=== PATIENT | male | born 1950 | race Caucasian/White ===

== ENCOUNTER → 2017-05-07 | Outpatient (CLI) | payer OTHER, MEDICARE ==
[~2017-05-07] MED LIST: ACIDOPHILUS LA1 EACH PO; ALEN70; ALEN70 PO; AMLO5; ANAS1 PO; ANASTROZOLE PO; ANASTROZOLE5 GM PO; ANDRODERM1 EAC1 TD; ASPI81CH PO; ASPI81EC; ASPI81EC PO; ATELVIA PO; ATEN25; ATOR10; ATOR20 PO; ATOR40TA; AXIRON30 MG/1.5 TOP; AZAT50 PO; Adult Low Dose81 MG PO; BETAINE HCL300 MG PO; BIEST/PROGESTERONE PO; BUPR150ER PO; Budeprion Sr150 MG; CALC.25 PO; CALCA500CH; CALCA500CH PO; CALCAVITD PO; CARV3.125 PO; CARV6.25 PO; CEPH500 PO; CHOL10002 PO; CILOSTAZOL PO; CLON.1 PO; CLOP75; CLOP75 PO; CULTURELLE1 EACH; Catapres0.1 MG PO; Cilostazol50 MG PO; Culturelle1 CAP PO; DHEA PO; EPOE20I; ESCI10; ESTRIOL MC; FE TINIC; FERREX 28 TABL1 EACH PO; FOL2.2T; FOLI1 PO; FURO40; FURO40 PO; Fludrocortison0.1 MG PO; GABA100; GABA100 PO; HYDACE10B PO; HYDACE5 PO; HYDMOR2 PO; HYDR1TAB94 PO; Humalog100 UNIT/1; Humalog100 UNIT/1 SC; Humalog100 UNIT/3 SC; INSULANPEN SC; INSULIN PUMP; LIOT25 PO; LIOT5 PO; LOSA50 PO; MAG-OXIDE200 MG PO; MAGOXI400; MAGOXI400 PO; METO25 PO; METO25ER PO; METO50 PO; MIRT15; MIRT15 PO; MIRT30 PO; MULVITA; MULVITA PO; MULVITB; MYCO250; MYCO250 PO; Micro-K10 MEQ; Micro-K10 MEQ PO; Multivitamin1 EAC1 PO; OMEP20ER; OMEP20ER PO; PANT40; PARI1 PO; PLETAL PO; PRED5; PRED5 PO; PREDNISONE 7.5 MG; PROGRAF PO; PROM25 PO; Percocet 5-3251 EACH PO; Plavix75 MG PO; RANI150; RXONDA4ODT MM; RXOXYACE PO; SODBIC650; TACR1; TACR1 PO; TAMS.4ER; TAMS.4ER PO; TESTOSTERONE CYPIONATE IM; Testostero100 MG/1 M IM; Zithromax250 MG PO; [UNRECOGNIZED DRUG - OTHER] PO; [UNRECOGNIZED DRUG - REMARK] PO
== END | disposition home or self-care (01) ==
LOC: LAB 08:24 → LAB SHORT 08:24
DX: D48.5 Neoplasm of uncertain behavior of skin (principal)
CPT/HCPCS: 88305

== ENCOUNTER → 2017-07-18 | Outpatient (CLI) | payer OTHER, MEDICARE | LOC: LAB SHORT 09:53 → PLD 09:53 | DX: D48.5 Neoplasm of uncertain behavior of skin (principal) | CPT/HCPCS: 88305 ==

== ENCOUNTER → 2017-08-28 | Outpatient (CLI) | payer OTHER, MEDICARE ==
[~2017-08-28] MED LIST changes: -ACIDOPHILUS LA1 EACH PO; -ANAS1 PO; -ANASTROZOLE PO; -ANASTROZOLE5 GM PO; -AXIRON30 MG/1.5 TOP; -Adult Low Dose81 MG PO; -BETAINE HCL300 MG PO; -CLON.1 PO; -CULTURELLE1 EACH; -Catapres0.1 MG PO; -Cilostazol50 MG PO; -Culturelle1 CAP PO; -FURO40 PO; -HYDR1TAB94 PO; -Humalog100 UNIT/1; -Humalog100 UNIT/1 SC; -Humalog100 UNIT/3 SC; -INSULANPEN SC; -LIOT25 PO; -LOSA50 PO; -MAG-OXIDE200 MG PO; -Micro-K10 MEQ; -Micro-K10 MEQ PO; -PLETAL PO; -Plavix75 MG PO; -TESTOSTERONE CYPIONATE IM; -Testostero100 MG/1 M IM; -Zithromax250 MG PO; -[UNRECOGNIZED DRUG - REMARK] PO
== END ==
LOC: LAB SHORT 11:10 → LAB 11:10
DX: R19.7 Diarrhea, unspecified (principal)
CPT/HCPCS: 87493

== ENCOUNTER 2017-10-16 06:02 | Day surgery (SDC) | payer OTHER, MEDICARE ==
[~2017-10-16] VITALS: Ht 185.4 cm; Wt 87.0 kg
[~2017-10-16 06:02] MED LIST changes: +ANASTROZOLE5 GM PO; +BETAINE HCL300 MG PO; +FURO40 PO; +HYDR1TAB94 PO; +LIOT25 PO; +LOSA50 PO; +Micro-K10 MEQ; +Testostero100 MG/1 M IM
[2017-10-17 03:51] LABS: Anion Gap 7 mmol/L (6-16); Blood Urea Nitrogen 19 mg/dL (8-24); Bun/Creatinine Ratio 19.8 (12.0-20.0); CO2, Blood 25 mmol/L (21-32); Calcium, Blood 8.3 mg/dL (8.5-10.1); Chloride, Blood 112 mmol/L (98-108); Creatinine, Blood 0.96 mg/dL (0.60-1.20); Glomerular Filtration Rate >60 (60-); Glucose, Blood 91 mg/dL (70-99); Potassium, Blood 4.1 mmol/L (3.5-5.5); Sodium, Blood 144 mmol/L (136-145)
== END 2017-10-17 10:05 | disposition home or self-care (01) ==
LOC: MHTC 06:02 → ICUW 15:56 → MHTC 10-17 10:05
PROVIDERS: Internal Medicine Interventional Cardiology
PROC: 047Q3Z1 Dilation of Left Anterior Tibial Artery using Drug-Coated Balloon, Percutaneous Approach (ICD-10-PCS; principal; 2017-10-17)
PROC: 04CQ3ZZ Extirpation of Matter from Left Anterior Tibial Artery, Percutaneous Approach (ICD-10-PCS; principal; 2017-10-17)
DX: E10.51 Type 1 diabetes mellitus with diabetic peripheral angiopathy without gangrene (principal); I70.245 Atherosclerosis of native arteries of left leg with ulceration of other part of foot; L97.529 Non-pressure chronic ulcer of other part of left foot with unspecified severity; I70.92 Chronic total occlusion of artery of the extremities; Z79.02 Long term (current) use of antithrombotics/antiplatelets; Z79.4 Long term (current) use of insulin; Z87.891 Personal history of nicotine dependence
CPT/HCPCS: 36415; 37229; 75710; 75774; 76937; 80048; 85347; 85730; 99152; 99153; C1724; C1725; C1769; C1887; C1894; J0360; J1644; J2250; J3010; J7030; J7507; Q9967

== ENCOUNTER 2017-11-13 20:54 | Emergency (ER) | payer MEDICARE, OTHER ==
[~2017-11-13] VITALS: Ht 185.4 cm; Wt 85.3 kg
[2017-11-13 22:29] LABS: BASOPHILS ABSOLUTE AUTO 0.01 K/mm3 (0.00-0.23); BASOPHILS PERCENT AUTO 0 % (0-2); EOSINOPHILS ABSOLUTE AUTO 0.55 K/mm3 (0.00-0.68); EOSINOPHILS PERCENT AUTO 13 % (0-6); Hematocrit 38.8 % (37.0-53.0); Hemoglobin 13.1 g/dL (13.5-17.5); IMMATURE GRAN ABSOLUTE AUTO 0.01 K/mm3 (0.00-0.10); IMMATURE GRAN PERCENT AUTO 0 % (0-1); LYMPHOCYTES ABSOLUTE AUTO 1.31 K/mm3 (0.84-5.20); LYMPHOCYTES PERCENT AUTO 30 % (21-46); MONOCYTES ABSOLUTE AUTO 0.49 K/mm3 (0.16-1.47); MONOCYTES PERCENT AUTO 11 % (4-13); Mean Corpuscular HGB 35.3 pg (26.0-34.0); Mean Corpuscular HGB Conc 33.8 g/dL (31.5-36.5); Mean Corpuscular Volume 105 fL (80-100); NEUTROPHILS ABSOLUTE AUTO 1.99 K/mm3 (1.96-9.15); NEUTROPHILS PERCENT AUTO 46 % (41-73); Platelet Count 76 K/mm3 (150-400); RDW Coefficient Variation 13.8 % (11.7-14.2); RDW Standard Deviation 54.4 fL (35.1-46.3); Red Blood Cell Count 3.71 M/mm3 (4.30-5.90); White Blood Cell Count 4.36 K/mm3 (4.00-11.30)
[2017-11-13 22:35] LABS: Albumin, Blood 3.1 g/dL (3.4-5.0); Albumin/Globulin Ratio 0.9 (0.8-1.8); Bilirubin, Total 0.5 mg/dL (0.1-1.0); Bun/Creatinine Ratio 14.3 (12.0-20.0); Calcium, Blood 8.1 mg/dL (8.5-10.1); Creatinine, Blood 1.54 mg/dL (0.60-1.20); Globulin, Blood 3.5 g/dL (2.2-4.0); Potassium, Blood 4.2 mmol/L (3.5-5.5); Total Protein, Blood 6.6 g/dL (6.4-8.2); Troponin I 0.016 ng/mL (0.000-0.040)
[2017-11-13] MEDS ORDERED: Zithromax250 MG PO (23:22)
== END 2017-11-13 23:40 | disposition home or self-care (01) ==
LOC: ER 20:54
PROVIDERS: Emergency Medicine
DX: J18.9 Pneumonia, unspecified organism (principal); J98.8 Other specified respiratory disorders; Z88.5 Allergy status to narcotic agent; Z88.8 Allergy status to other drugs, medicaments and biological substances; Z79.899 Other long term (current) drug therapy; Z79.52 Long term (current) use of systemic steroids; Z79.82 Long term (current) use of aspirin; Z79.891 Long term (current) use of opiate analgesic; Z87.891 Personal history of nicotine dependence
CPT/HCPCS: 36415; 71046; 80053; 83880; 84484; 85025; 93005; 93010; 94640; 99284-25

== ENCOUNTER → 2018-01-27 | Outpatient (CLI) | payer MEDICARE ==
[~2018-01-27] MED LIST changes: +AXIRON30 MG/1.5 TOP; +CULTURELLE1 EACH; +Micro-K10 MEQ PO; +PLETAL PO; +Plavix75 MG PO; +Zithromax250 MG PO
== END | disposition home or self-care (01) ==
LOC: PLD 14:21 → LAB SHORT 14:21
DX: D48.5 Neoplasm of uncertain behavior of skin (principal)
CPT/HCPCS: 88305

== ENCOUNTER 2018-01-29 20:47 | Observation (INO) | payer MEDICARE ==
[~2018-01-29] VITALS: Ht 185.4 cm; Wt 85.3 kg
[~2018-01-29 20:47] MED LIST changes: -AXIRON30 MG/1.5 TOP; -CULTURELLE1 EACH; -Micro-K10 MEQ PO; -PLETAL PO; -Plavix75 MG PO
[2018-01-29 21:31] LABS: BASOPHILS ABSOLUTE AUTO 0.03 K/mm3 (0.00-0.23); BASOPHILS PERCENT AUTO 0 % (0-2); EOSINOPHILS ABSOLUTE AUTO 0.34 K/mm3 (0.00-0.68); EOSINOPHILS PERCENT AUTO 5 % (0-6); Hemoglobin 13.7 g/dL (13.5-17.5); IMMATURE GRAN ABSOLUTE AUTO 0.03 K/mm3 (0.00-0.10); IMMATURE GRAN PERCENT AUTO 0 % (0-1); LYMPHOCYTES ABSOLUTE AUTO 1.58 K/mm3 (0.84-5.20); LYMPHOCYTES PERCENT AUTO 23 % (21-46); MONOCYTES ABSOLUTE AUTO 0.63 K/mm3 (0.16-1.47); MONOCYTES PERCENT AUTO 9 % (4-13); Mean Corpuscular HGB 34.5 pg (26.0-34.0); Mean Corpuscular HGB Conc 32.6 g/dL (31.5-36.5); Mean Corpuscular Volume 106 fL (80-100); Mean Platelet Volume 10.4 fL (9.1-12.4); NEUTROPHILS PERCENT AUTO 62 % (41-73); Platelet Count 132 K/mm3 (150-400); RDW Coefficient Variation 15.4 % (11.7-14.2); RDW Standard Deviation 60.3 fL (35.1-46.3); Red Blood Cell Count 3.97 M/mm3 (4.30-5.90); White Blood Cell Count 6.81 K/mm3 (4.00-11.30)
[2018-01-29] MEDS ORDERED: DHEA PO (21:42)
[2018-01-29] MEDS ORDERED: FURO40 PO (21:42)
[2018-01-29] MEDS ORDERED: Fludrocortison0.1 MG PO (21:42)
[2018-01-29] MEDS ORDERED: TAMS.4ER PO (21:42)
[2018-01-29] MEDS ORDERED: AZAT50 PO (21:43)
[2018-01-29] MEDS ORDERED: MAGOXI400 PO (21:43)
[2018-01-29] MEDS ORDERED: ATOR20 PO (21:43)
[2018-01-29] MEDS ORDERED: LIOT25 PO (21:43)
[2018-01-29] MEDS ORDERED: LOSA50 PO (21:43)
[2018-01-29 21:44] LABS: Albumin, Blood 3.2 g/dL (3.4-5.0); Albumin/Globulin Ratio 0.9 (0.8-1.8); Bilirubin, Total 0.8 mg/dL (0.1-1.0); Bun/Creatinine Ratio 13.9 (12.0-20.0); Calcium, Blood 8.6 mg/dL (8.5-10.1); Creatinine, Blood 2.01 mg/dL (0.60-1.20); Globulin, Blood 3.7 g/dL (2.2-4.0); Potassium, Blood 4.2 mmol/L (3.5-5.5); Total Protein, Blood 6.9 g/dL (6.4-8.2)
[2018-01-29] MEDS ORDERED: Multivitamin1 EAC1 PO (21:45)
[2018-01-29] MEDS ORDERED: GABA100 PO (21:45)
[2018-01-29] MEDS ORDERED: MIRT30 PO (21:45)
[2018-01-29] MEDS ORDERED: Plavix75 MG PO (21:46)
[2018-01-29] MEDS ORDERED: PRED5 PO (21:46)
[2018-01-29] MEDS ORDERED: PLETAL PO (21:46)
[2018-01-29] MEDS ORDERED: Micro-K10 MEQ PO (21:46)
[2018-01-29] MEDS ORDERED: TACR1 PO ×2 (21:47→21:49)
[2018-01-29] MEDS ORDERED: AXIRON30 MG/1.5 TOP (21:48)
[2018-01-29] MEDS ORDERED: BETAINE HCL300 MG PO (21:49)
[2018-01-29] MEDS ORDERED: BUPR150ER PO (21:49)
[2018-01-29] MEDS ORDERED: CHOL10002 PO (21:49)
[2018-01-29] MEDS ORDERED: METO50 PO (21:51)
[2018-01-30 00:48] LABS: Source, Urine Clean Catch
[2018-01-30 00:50] LABS: Blood, Urine 2+ (Neg); Glucose Qualitative, Urine Neg (Neg); Ketones, Urine Neg (Neg); Leukocyte Esterase, Urine Neg (Neg); Nitrite, Urine Neg (Neg); Protein, Urine 2+ (Neg); Specific Gravity, Urine 1.025 (1.003-1.022); Urobilinogen, Urine NORM (Normal)
[2018-01-30 01:00] LABS: Appearance, Urine Hazy (Clear); Bacteria Rare /hpf; Bilirubin, Urine 1+ (Neg); Color, Urine Amber (P-Yellow); Red Blood Cells, Urine Not Seen /hpf (0-2); Squamous Epithelial Cells Few /hpf (Few); White Blood Cells, Urine Not Seen /hpf (0-5)
[2018-01-30 01:01] LABS: Amorphous Mod (0-Heavy); Hyaline Casts 50-100 /lpf (0-2)
[2018-01-30 05:24] LABS: Albumin, Blood 2.9 g/dL (3.4-5.0); Albumin/Globulin Ratio 0.9 (0.8-1.8); Bilirubin, Total 0.8 mg/dL (0.1-1.0); Bun/Creatinine Ratio 16.7 (12.0-20.0); Calcium, Blood 7.8 mg/dL (8.5-10.1); Creatinine, Blood 1.62 mg/dL (0.60-1.20); Globulin, Blood 3.2 g/dL (2.2-4.0); Potassium, Blood 4.1 mmol/L (3.5-5.5); Total Protein, Blood 6.1 g/dL (6.4-8.2)
[2018-01-30 20:17] LABS: Adenovirus F 40/41 Not Detected (NOT DETECT); Astrovirus Not Detected (NOT DETECT); Campylobacter Sp Not Detected (NOT DETECT); Cryptosporidium Not Detected (NOT DETECT); Cyclospora Cayetanensis Not Detected (NOT DETECT); E. Coli O157 Not Detected (NOT DETECT); Entamoeba Histolytica Not Detected (NOT DETECT); Enteroaggregative E. coli-EAEC Not Detected (NOT DETECT); Enteropathogenic E. coli-EPEC Not Detected (NOT DETECT); Enterotoxigenic E. coli-ETEC Not Detected (NOT DETECT); Giardia Lamblia Not Detected (NOT DETECT); Norovirus GI/GII Not Detected (NOT DETECT); Plesiomonas Shigelloides Not Detected (NOT DETECT); Rotavirus A Not Detected (NOT DETECT); Salmonella Sp Not Detected (NOT DETECT); Shiga Toxin-prod E. coli-STEC Not Detected (NOT DETECT); Shigella/Enteroin E. coli-EIEC Not Detected (NOT DETECT); Vibrio Cholerae Not Detected (NOT DETECT); Vibrio Sp Not Detected (NOT DETECT); Yersinia Enterocolitica Not Detected (NOT DETECT)
[2018-01-31 00:35] LABS: Sapovirus Detected (NOT DETECT)
[2018-01-31 06:19] LABS: Calcium, Blood 7.9 mg/dL (8.5-10.1); Creatinine, Blood 1.33 mg/dL (0.60-1.20); Potassium, Blood 3.9 mmol/L (3.5-5.5)
[2018-01-31] MEDS ORDERED: CULTURELLE1 EACH (08:58)
== END 2018-01-31 10:27 | disposition home or self-care (01) ==
LOC: ER 20:47 → MEDS 20:48 → ENPENDDIS 01-31 09:29 → MEDS 01-31 10:27
PROVIDERS: Internal Medicine; Physician Assistant
DX: E11.65 Type 2 diabetes mellitus with hyperglycemia (principal); R19.7 Diarrhea, unspecified; I12.9 Hypertensive chronic kidney disease with stage 1 through stage 4 chronic kidney disease, or unspecified chronic kidney disease; E11.22 Type 2 diabetes mellitus with diabetic chronic kidney disease; N18.2 Chronic kidney disease, stage 2 (mild); E11.51 Type 2 diabetes mellitus with diabetic peripheral angiopathy without gangrene; N17.9 Acute kidney failure, unspecified; E11.42 Type 2 diabetes mellitus with diabetic polyneuropathy; Z94.83 Pancreas transplant status; Z94.0 Kidney transplant status; Z79.899 Other long term (current) drug therapy; Z79.82 Long term (current) use of aspirin; Z88.5 Allergy status to narcotic agent; Z88.6 Allergy status to analgesic agent; Z79.02 Long term (current) use of antithrombotics/antiplatelets; Z87.891 Personal history of nicotine dependence; Z86.73 Personal history of transient ischemic attack (TIA), and cerebral infarction without residual deficits
CPT/HCPCS: 36415; 80048; 80053; 81001; 82150; 82947; 83690; 84484; 85025; 87507; 90686; 93005; 93010; 96360; 96361; 96372; 96374; 99285-25; G0008; G0378; J0360; J1650; J7030; J7500; J7507

== ENCOUNTER → 2018-02-27 | Outpatient (CLI) | payer MEDICARE ==
[~2018-02-27] MED LIST changes: +ANAS1 PO; +AXIRON30 MG/1.5 TOP; +CULTURELLE1 EACH; +Catapres0.1 MG PO; +Cilostazol50 MG PO; +Culturelle1 CAP PO; +Humalog100 UNIT/1; +Humalog100 UNIT/1 SC; +Humalog100 UNIT/3 SC; +INSULANPEN SC; +Micro-K10 MEQ PO; +PLETAL PO; +Plavix75 MG PO
== END | disposition home or self-care (01) ==
LOC: PLD 13:22 → LAB SHORT 13:22
DX: D48.5 Neoplasm of uncertain behavior of skin (principal); A49.9 Bacterial infection, unspecified
CPT/HCPCS: 87070; 87077; 87147; 87186; 87205

== ENCOUNTER → 2018-05-15 | Outpatient (CLI) | payer MEDICARE ==
[~2018-05-15] MED LIST changes: +ACIDOPHILUS LA1 EACH PO; +ANASTROZOLE PO; +Adult Low Dose81 MG PO; +CLON.1 PO; +MAG-OXIDE200 MG PO; +TESTOSTERONE CYPIONATE IM; +[UNRECOGNIZED DRUG - REMARK] PO
== END | disposition home or self-care (01) ==
LOC: PLD 14:33 → LAB SHORT 14:33
DX: C44.622 Squamous cell carcinoma of skin of right upper limb, including shoulder (principal)
CPT/HCPCS: 88305

== ENCOUNTER → 2018-06-18 | Outpatient (CLI) | payer MEDICARE | END | disposition home or self-care (01) | LOC: LAB SHORT 10:04 → PLD 10:04 | DX: C44.629 Squamous cell carcinoma of skin of left upper limb, including shoulder (principal) | CPT/HCPCS: 88305 ==

== ENCOUNTER 2018-08-26 09:44 | Day surgery (SDC) | payer MEDICARE ==
[~2018-08-26] VITALS: Ht 185.4 cm; Wt 90.0 kg
[~2018-08-26 09:44] MED LIST changes: +Norco 5-325 Ta1 EACH PO; +XARELTO15 MG PO
[2018-08-26] MEDS ORDERED: VITAMIN D32000 UNI1 PO (10:35)
[2018-08-26] MEDS ORDERED: CALC.25 PO (10:36)
[2018-08-26] MEDS ORDERED: TESTOSTERONE TOP (10:50)
[2018-08-26] MEDS ORDERED: [UNRECOGNIZED DRUG - OTHER] TOP (10:50)
--- NOTE | 2018-08-26 14:20 | NUR ---
PT HAS HAD UNCOMPLICATED POST PROCEDURE COURSE TO THIS POINT. ACCESS SITES IN BILATERAL GROINS STABLE. NO BLEEDING OR SWELLING NOTED. CMS TO BOTH LEGS INTACT. LEGS PWD. PT DENIES PAIN AT THIS TIME. AT BEDSIDE.
--- NOTE | 2018-08-26 15:02 | NUR ---
PT C/O "DULL ACHE" IN BACK OF LEFT KNEE AT THIS TIME. DENIES ANY OTHER PAIN OR DISCOMFORT. BILAT GROIN SITES REMAIN STABLE. NO BLEEDING OR SWELLING NOTED. LEGS PWD.
--- NOTE | 2018-08-26 16:56 | NUR ---
SUMMARY: STEPHENIE Pope RN CARED FOR PATIENT OVER LAST 2 HOURS. THIS RN DISCHARGED PATIENT HOME AT THIS TIME. NO C/O PAIN OR DISCOMFORT. AMBULATED IN ROOM AND TO BATHROOM, MILDLY UNSTEADY ON FEET DUE TO CALF DISCOMFORT. IS ABLE TO SAFELY AMBULATED WITH SBA. NO BLEEDING OR SWELLING NOTED. DISCHARGE INSTRUCTIONS REVIEWED WITH PATIENT BY DOMINIC RN. PT AND VERBALIZE UNDERSTANDING OF ALL INSTRUCTIONS TO THIS RN. IV D/C TIP INTACT. PT DC HOME VIA WHEELCHAIR WITH TO DRIVE HIM.
== END 2018-08-26 16:40 | disposition home or self-care (01) ==
LOC: MHTC 09:44 → SURS 09:45 → MHTC 10:00
DX: I73.9 Peripheral vascular disease, unspecified (principal); Z88.5 Allergy status to narcotic agent; Z88.6 Allergy status to analgesic agent; Z79.899 Other long term (current) drug therapy
CPT/HCPCS: 82947; 99152; 99153; C1725; C1760; C1769; C1887; C1894; C2623; J1644; J2250; J3010; J7030; J7040; Q9967

== ENCOUNTER → 2018-09-24 | Outpatient (CLI) | payer MEDICARE ==
[~2018-09-24] MED LIST changes: +TESTOSTERONE TOP; +VITAMIN D32000 UNI1 PO; +[UNRECOGNIZED DRUG - OTHER] TOP
== END | disposition home or self-care (01) ==
LOC: LAB SHORT 15:46 → PLD 15:46
DX: D48.5 Neoplasm of uncertain behavior of skin (principal)
CPT/HCPCS: 88305

== ENCOUNTER 2019-11-11 08:13 | Day surgery (SDC) | payer MEDICARE ==
[~2019-11-11] VITALS: Ht 185.4 cm; Wt 82.1 kg
[~2019-11-11 08:13] MED LIST changes: +ACIDOPHILUS1 EAC3 PO; +Budeprion Xl300 MG PO; +CENTRUM SILVER1 EAC2 PO; +CULTURELLE PO; +Culturelle1 CAP; +Depo-Testos200 MG/ML IM; +HUMALOG100 UNIT/1 SC; +LOSA25 PO; +Lipitor20 MG PO; +MAGNESIUM OXID500 MG PO; +MIRTAZAPINE PO; +SIRO1 PO
--- NOTE | 2019-11-11 11:51 | NUR ---
Ambulatory in Day Surgery. Surgical site prepped with 2% Chlorhexidine cloth wipe. History, Chart, Medications and Allergies reviewed before start of procedure. History, Chart, Medications and Allergies reviewed before start of procedure. Lungs clear T/O to Auscultation. Patient confirms NPO status and agrees with scheduled surgery. Pre-Op teaching done. Pt verbalizes understanding. Patient States Post-Procedure ride home has been arranged. Patient reports completing Chlorhexadine shower X2 prior to admission to hospital.
--- NOTE | 2019-11-11 15:01 | NUR ---
Patient up to Ambulate independently. Gait steady. Dressing to procedure site clean, dry, intact with no visible drainage, swelling, erythema or bruising noted. Discharge instructions reviewed with patient. Patient verbalizes understanding. Copy given to patient to take home. Patient States Post-Procedure ride home has been arranged. Discharged via wheelchair to private car for ride home. ALL BELONINGS PROVIDED TO PATIENT. CBG ON INSULIN PUMP 178. PT DAVID SNACK AND FLUID.
--- NOTE | 2019-11-11 15:08 | NUR ---
Patient up to Ambulate independently. Gait steady. Discharge instructions reviewed with patient. Patient verbalizes understanding. Copy given to patient to take home. Dressing to procedure site clean, dry, intact with no visible drainage, swelling, erythema or bruising noted. Patient States Post-Procedure ride home has been arranged. Discharged via wheelchair to private car for ride home.ALL BELONINGS RETURNED TO PATIENT
== END 2019-11-11 22:52 | disposition home or self-care (01) ==
LOC: ORSCMMR 08:13 → ORD 09:45 → ORSCMMR 09:45
PROVIDERS: Surgery
PROC: 0JBF0ZX Excision of Left Upper Arm Subcutaneous Tissue and Fascia, Open Approach, Diagnostic (ICD-10-PCS; principal; 2019-11-11 12:15)
DX: C79.89 Secondary malignant neoplasm of other specified sites (principal); R59.0 Localized enlarged lymph nodes; Z95.0 Presence of cardiac pacemaker; N18.9 Chronic kidney disease, unspecified; E11.9 Type 2 diabetes mellitus without complications; E03.9 Hypothyroidism, unspecified; Z86.73 Personal history of transient ischemic attack (TIA), and cerebral infarction without residual deficits; Z79.899 Other long term (current) drug therapy
CPT/HCPCS: 82947; 84132; 88307; 88342; J0690; J1720; J2250; J2370; J2704; J3010; J7030; J7120

== ENCOUNTER → 2020-07-05 | Outpatient (CLI) | payer MEDICARE ==
[~2020-07-05] MED LIST changes: +PROGRAF0.5 M1 PO; +THERA-D2000 UNIT PO
== END | disposition home or self-care (01) ==
LOC: LAB SHORT 09:09 → LAB 09:09
DX: D48.5 Neoplasm of uncertain behavior of skin (principal)
CPT/HCPCS: 88305

== ENCOUNTER 2020-09-08 11:26 | Day surgery (SDC) | payer MEDICARE ==
[~2020-09-08] VITALS: Ht 185.4 cm; Wt 82.0 kg
[2020-09-08] MEDS ORDERED: TACR1 PO (12:08)
== END 2020-09-08 13:48 | disposition home or self-care (01) ==
LOC: ORSCSDS 11:26
PROVIDERS: Surgery
PROC: 0DBP8ZX Excision of Rectum, Via Natural or Artificial Opening Endoscopic, Diagnostic (ICD-10-PCS; principal; 2020-09-08 12:45)
DX: Z12.11 Encounter for screening for malignant neoplasm of colon (principal); Z86.010 Personal history of colon polyps; K62.1 Rectal polyp; K64.8 Other hemorrhoids; I10 Essential (primary) hypertension; Z95.0 Presence of cardiac pacemaker; Z86.73 Personal history of transient ischemic attack (TIA), and cerebral infarction without residual deficits; Z96.41 Presence of insulin pump (external) (internal); F32.9 Major depressive disorder, single episode, unspecified; E10.8 Type 1 diabetes mellitus with unspecified complications; Z87.891 Personal history of nicotine dependence; Z79.82 Long term (current) use of aspirin; Z79.4 Long term (current) use of insulin; Z79.01 Long term (current) use of anticoagulants; Z79.899 Other long term (current) drug therapy
CPT/HCPCS: 82947; 88305; J2704; J7120

== ENCOUNTER 2021-03-21 08:22 | Day surgery (SDC) | payer MEDICARE ==
[~2021-03-21] VITALS: Ht 185.4 cm; Wt 85.0 kg
--- NOTE | 2021-03-21 14:10 | NUR ---
PT TO RECOVERY ROOM POST PROCEDURE, L GROIN WITH POSITIVE SWELLING, MANUAL PRESSURE APPLIED.
--- NOTE | 2021-03-21 14:35 | NUR ---
PT'S L GROIN STABLE POST PROCEDURE. PT DROWSY, BUT CONVERSING APPROPRIATELY; REPORTS MIN DISCOMFORT L GROIN /, DENIES NEED FOR MEDICATION. MONITOR SR 70'S, B/P 127/58, AFEBRILE, SPO2 98% RA. L GROIN NO SWELLING/SOFT, AMADO AND TEGADERM DRSG INTACT; PULSES 2+ X 2. R GROIN NO SWELLING/HEMATOMA, AMADO AND TEGADERM DRSG INTACT; PULSES 1+ X 2. L PEDAL ACCESS SITE NO SWELLNG/HEMATOMA, AMADO AND TEGADERM DRSG INTACT. PT'S AT BEDSIDE. DR REYNA INTO DISCUSS PROCEDURE RESULTS WITH PT AND , NOTIFIED OF L GROIN SWELLING POST PROCEDURE.
--- NOTE | 2021-03-21 16:20 | NUR ---
PT HOB ELEVATED, SITES UNCHANGED. PT EATING LUNCH WITHOUT ISSUE.
--- NOTE | 2021-03-21 17:20 | NUR ---
PT AMB TO BATHRROM, GAIT STEADY; SITES UNCHANGED WITH ACTIVITY. PT DRESSED SELF WITHOUT ISSUE, SITES UNCHANGED-IV REMOVED, CANNULA INTACT.
--- NOTE | 2021-03-21 17:28 | NUR ---
PT AND RECEIVED DISCHARGE INSTRUCTIONS, MED LIST AND AFTER CARE INSTRUCTIONS; VERBALIZED GOOD UNDERSTANDING. PT LEFT FACILITY VIA W/C, CONDITION STABLE.
[2021-03-22] MEDS ORDERED: HYDACE10B PO (11:57)
== END 2021-03-21 17:28 | disposition home or self-care (01) ==
LOC: MHTC 08:22
DX: I70.223 Atherosclerosis of native arteries of extremities with rest pain, bilateral legs (principal); Z88.5 Allergy status to narcotic agent
CPT/HCPCS: 76937; 85347; 99152; 99153; C1725; C1760; C1769; C1874; C1887; C1894; C2623; J0360; J1644; J2250; J3010; J7030; J7042; Q9967

== ENCOUNTER 2021-03-25 10:38 | Emergency (ER) | payer MEDICARE ==
[~2021-03-25] VITALS: Ht 185.4 cm; Wt 83.9 kg
[2021-03-25 11:11] LABS: BASOPHILS ABSOLUTE AUTO 0.02 K/mm3 (0.00-0.23); BASOPHILS PERCENT AUTO 0 % (0-2); EOSINOPHILS ABSOLUTE AUTO 0.09 K/mm3 (0.00-0.68); EOSINOPHILS PERCENT AUTO 1 % (0-6); Hematocrit 28.9 % (37.0-53.0); Hemoglobin 9.7 g/dL (13.5-17.5); IMMATURE GRAN ABSOLUTE AUTO 0.04 K/mm3 (0.00-0.10); IMMATURE GRAN PERCENT AUTO 0 % (0-1); LYMPHOCYTES PERCENT AUTO 6 % (21-46); MONOCYTES ABSOLUTE AUTO 0.74 K/mm3 (0.16-1.47); MONOCYTES PERCENT AUTO 7 % (4-13); Mean Corpuscular HGB 33.6 pg (26.0-34.0); Mean Corpuscular HGB Conc 33.6 g/dL (31.5-36.5); Mean Corpuscular Volume 100 fL (80-100); Mean Platelet Volume 12.1 fL (9.1-12.4); NEUTROPHILS ABSOLUTE AUTO 9.01 K/mm3 (1.96-9.15); NEUTROPHILS PERCENT AUTO 86 % (41-73); Platelet Count 177 K/mm3 (150-400); RDW Coefficient Variation 15.5 % (11.7-14.2); RDW Standard Deviation 56.4 fL (35.1-46.3); Red Blood Cell Count 2.89 M/mm3 (4.30-5.90)
[2021-03-25 11:34] LABS: Albumin, Blood 2.3 g/dL (3.4-5.0); Albumin/Globulin Ratio 0.6 (0.8-1.8); Bilirubin, Total 0.6 mg/dL (0.1-1.0); Calcium, Blood 8.6 mg/dL (8.5-10.1); Creatinine, Blood 3.06 mg/dL (0.60-1.20); Globulin, Blood 3.6 g/dL (2.2-4.0); Potassium, Blood 4.7 mmol/L (3.5-5.5); Total Protein, Blood 5.9 g/dL (6.4-8.2)
[2021-03-25] MEDS ORDERED: Percocet 5-3251 EACH PO (14:22)
== END 2021-03-25 14:47 | disposition home or self-care (01) ==
LOC: ER 10:38
PROVIDERS: Physician Assistant
DX: I97.638 Postprocedural hematoma of a circulatory system organ or structure following other circulatory system procedure (principal); E78.5 Hyperlipidemia, unspecified; D64.9 Anemia, unspecified; I10 Essential (primary) hypertension; K21.9 Gastro-esophageal reflux disease without esophagitis; Z87.891 Personal history of nicotine dependence; Z79.899 Other long term (current) drug therapy; Z79.82 Long term (current) use of aspirin; Z79.4 Long term (current) use of insulin; Z79.52 Long term (current) use of systemic steroids
CPT/HCPCS: 36415; 80053; 85025; 93926; 96374; 96375; 99284-25; J2270; J2405

== ENCOUNTER → 2021-06-18 | Outpatient (CLI) | payer MEDICARE ==
[2021-06-19 12:15] LABS: Creatinine Urine 65.9 mg/dL (27.00-270.00); Protein, Urine Quantitative 201.7 mg/dL (0.0-11.9)
== END | disposition home or self-care (01) ==
LOC: LAB SHORT 10:07
PROVIDERS: Internal Medicine Nephrology
DX: N18.30 Chronic kidney disease, stage 3 unspecified (principal); D63.1 Anemia in chronic kidney disease; N25.81 Secondary hyperparathyroidism of renal origin; E55.9 Vitamin D deficiency, unspecified; E78.00 Pure hypercholesterolemia, unspecified; R76.9 Abnormal immunological finding in serum, unspecified; R94.5 Abnormal results of liver function studies; R94.6 Abnormal results of thyroid function studies
CPT/HCPCS: 81050; 82043; 82570; 84156

== ENCOUNTER 2021-07-26 00:25 | Day surgery (SDC) | payer MEDICARE ==
--- NOTE | 2021-07-26 15:39 | NUR ---
PT EDUCATED REGARDING OUR UNIT
== END 2021-07-26 17:00 | disposition home or self-care (01) ==
LOC: ATC 00:25
DX: E86.9 Volume depletion, unspecified (principal); I12.9 Hypertensive chronic kidney disease with stage 1 through stage 4 chronic kidney disease, or unspecified chronic kidney disease; E11.22 Type 2 diabetes mellitus with diabetic chronic kidney disease; N18.4 Chronic kidney disease, stage 4 (severe); D63.1 Anemia in chronic kidney disease; N25.81 Secondary hyperparathyroidism of renal origin; Z79.01 Long term (current) use of anticoagulants; Z79.82 Long term (current) use of aspirin
CPT/HCPCS: J7030

== ENCOUNTER 2021-08-08 09:45 | Day surgery (SDC) | payer MEDICARE | END 2021-08-08 23:00 | disposition home or self-care (01) | LOC: ATC 09:45 | DX: E86.9 Volume depletion, unspecified (principal); I12.9 Hypertensive chronic kidney disease with stage 1 through stage 4 chronic kidney disease, or unspecified chronic kidney disease; E11.22 Type 2 diabetes mellitus with diabetic chronic kidney disease; N18.4 Chronic kidney disease, stage 4 (severe); D63.1 Anemia in chronic kidney disease; N25.81 Secondary hyperparathyroidism of renal origin; E78.00 Pure hypercholesterolemia, unspecified; E55.9 Vitamin D deficiency, unspecified; Z88.4 Allergy status to anesthetic agent; Z88.5 Allergy status to narcotic agent | CPT/HCPCS: J7030 ==

== ENCOUNTER 2021-08-11 01:32 | Day surgery (SDC) | payer MEDICARE | END 2021-08-11 10:48 | disposition home or self-care (01) | LOC: ATC 01:32 | DX: E86.9 Volume depletion, unspecified (principal); I12.9 Hypertensive chronic kidney disease with stage 1 through stage 4 chronic kidney disease, or unspecified chronic kidney disease; E11.22 Type 2 diabetes mellitus with diabetic chronic kidney disease; N18.4 Chronic kidney disease, stage 4 (severe); D63.1 Anemia in chronic kidney disease; E78.00 Pure hypercholesterolemia, unspecified; E55.9 Vitamin D deficiency, unspecified; Z88.4 Allergy status to anesthetic agent; Z88.5 Allergy status to narcotic agent | CPT/HCPCS: J7030 ==

== ENCOUNTER 2021-08-15 01:58 | Day surgery (SDC) | payer MEDICARE | END 2021-08-15 12:00 | disposition home or self-care (01) | LOC: ATC 01:58 | DX: E86.9 Volume depletion, unspecified (principal); I12.9 Hypertensive chronic kidney disease with stage 1 through stage 4 chronic kidney disease, or unspecified chronic kidney disease; E11.22 Type 2 diabetes mellitus with diabetic chronic kidney disease; N18.4 Chronic kidney disease, stage 4 (severe); D63.1 Anemia in chronic kidney disease; N25.81 Secondary hyperparathyroidism of renal origin; E78.00 Pure hypercholesterolemia, unspecified; E55.9 Vitamin D deficiency, unspecified; Z88.4 Allergy status to anesthetic agent; Z88.5 Allergy status to narcotic agent | CPT/HCPCS: J7030 ==

== ENCOUNTER 2021-08-22 00:50 | Day surgery (SDC) | payer MEDICARE | END 2021-08-22 11:49 | disposition home or self-care (01) | LOC: ATC 00:50 | DX: E86.9 Volume depletion, unspecified (principal) | CPT/HCPCS: J7030 ==

== ENCOUNTER 2021-08-25 01:05 | Day surgery (SDC) | payer MEDICARE | END 2021-08-25 12:20 | disposition home or self-care (01) | LOC: ATC 01:05 | DX: E86.9 Volume depletion, unspecified (principal); I12.9 Hypertensive chronic kidney disease with stage 1 through stage 4 chronic kidney disease, or unspecified chronic kidney disease; N18.4 Chronic kidney disease, stage 4 (severe); D63.1 Anemia in chronic kidney disease; N25.81 Secondary hyperparathyroidism of renal origin; E11.21 Type 2 diabetes mellitus with diabetic nephropathy; E78.00 Pure hypercholesterolemia, unspecified; E55.9 Vitamin D deficiency, unspecified; Z88.5 Allergy status to narcotic agent; Z88.4 Allergy status to anesthetic agent | CPT/HCPCS: J7030 ==

== ENCOUNTER 2021-08-29 01:20 | Day surgery (SDC) | payer MEDICARE | END 2021-08-29 12:25 | disposition home or self-care (01) | LOC: ATC 01:20 | DX: E86.9 Volume depletion, unspecified (principal); I12.9 Hypertensive chronic kidney disease with stage 1 through stage 4 chronic kidney disease, or unspecified chronic kidney disease; N18.4 Chronic kidney disease, stage 4 (severe); D63.1 Anemia in chronic kidney disease; N25.81 Secondary hyperparathyroidism of renal origin; E11.21 Type 2 diabetes mellitus with diabetic nephropathy; E11.22 Type 2 diabetes mellitus with diabetic chronic kidney disease; R60.9 Edema, unspecified; E78.00 Pure hypercholesterolemia, unspecified; R31.9 Hematuria, unspecified; E55.9 Vitamin D deficiency, unspecified; Z88.5 Allergy status to narcotic agent; Z88.8 Allergy status to other drugs, medicaments and biological substances | CPT/HCPCS: J7030 ==

== ENCOUNTER 2021-09-01 00:12 | Day surgery (SDC) | payer MEDICARE | END 2021-09-01 12:10 | disposition home or self-care (01) | LOC: ATC 00:12 | DX: E86.9 Volume depletion, unspecified (principal); I12.9 Hypertensive chronic kidney disease with stage 1 through stage 4 chronic kidney disease, or unspecified chronic kidney disease; N18.4 Chronic kidney disease, stage 4 (severe); E11.22 Type 2 diabetes mellitus with diabetic chronic kidney disease; D63.1 Anemia in chronic kidney disease; N25.81 Secondary hyperparathyroidism of renal origin; E11.21 Type 2 diabetes mellitus with diabetic nephropathy; Z79.02 Long term (current) use of antithrombotics/antiplatelets; Z79.82 Long term (current) use of aspirin; Z79.899 Other long term (current) drug therapy | CPT/HCPCS: 96360; 96361; J7030 ==

== ENCOUNTER 2021-09-05 02:48 | Day surgery (SDC) | payer MEDICARE | END 2021-09-05 12:28 | disposition home or self-care (01) | LOC: ATC 02:48 | DX: E86.9 Volume depletion, unspecified (principal); I12.9 Hypertensive chronic kidney disease with stage 1 through stage 4 chronic kidney disease, or unspecified chronic kidney disease; N18.4 Chronic kidney disease, stage 4 (severe); E11.21 Type 2 diabetes mellitus with diabetic nephropathy; E11.22 Type 2 diabetes mellitus with diabetic chronic kidney disease | CPT/HCPCS: J7030 ==

== ENCOUNTER 2021-09-15 01:00 | Day surgery (SDC) | payer MEDICARE | END 2021-09-15 11:40 | disposition home or self-care (01) | LOC: ATC 01:00 | DX: E86.9 Volume depletion, unspecified (principal) | CPT/HCPCS: J7030 ==

== ENCOUNTER 2021-09-19 09:01 | Day surgery (SDC) | payer MEDICARE | END 2021-09-19 11:57 | disposition home or self-care (01) | LOC: ATC 09:01 | DX: E86.9 Volume depletion, unspecified (principal); I12.9 Hypertensive chronic kidney disease with stage 1 through stage 4 chronic kidney disease, or unspecified chronic kidney disease; N18.4 Chronic kidney disease, stage 4 (severe); D63.1 Anemia in chronic kidney disease; N25.81 Secondary hyperparathyroidism of renal origin; E11.22 Type 2 diabetes mellitus with diabetic chronic kidney disease; Z88.5 Allergy status to narcotic agent | CPT/HCPCS: 96360; 96361; J7030 ==

== ENCOUNTER 2021-09-26 04:34 | Day surgery (SDC) | payer MEDICARE | END 2021-09-26 12:00 | disposition home or self-care (01) | LOC: ATC 04:34 | DX: E86.9 Volume depletion, unspecified (principal) | CPT/HCPCS: 96360; 96361; J7030 ==

== ENCOUNTER 2021-09-29 03:06 | Day surgery (SDC) | payer MEDICARE ==
[2021-09-29 12:18] LABS: Albumin, Blood 2.9 g/dL (3.4-5.0); Anion Gap 8 mmol/L (6-16); Blood Urea Nitrogen 71 mg/dL (8-24); Bun/Creatinine Ratio 20.8 (12.0-20.0); CO2, Blood 20 mmol/L (21-32); Chloride, Blood 115 mmol/L (98-108); Creatinine, Blood 3.41 mg/dL (0.60-1.20); Glomerular Filtration Rate 18 (60-); Glucose, Blood 131 mg/dL (70-99); Phosphorus, Blood 4.6 mg/dL (2.5-4.9); Potassium, Blood 4.9 mmol/L (3.5-5.5); Sodium, Blood 143 mmol/L (136-145)
== END 2021-09-29 23:22 | disposition home or self-care (01) ==
LOC: ATC 03:06
PROVIDERS: Internal Medicine Nephrology
DX: E86.9 Volume depletion, unspecified (principal)
CPT/HCPCS: 80069; 85018; J7030

== ENCOUNTER 2021-10-03 00:59 | Day surgery (SDC) | payer MEDICARE ==
[2021-10-04] MEDS ORDERED: INSPUMP (07:35)
== END 2021-10-03 11:54 | disposition home or self-care (01) ==
LOC: ATC 00:59
DX: E86.9 Volume depletion, unspecified (principal); I12.9 Hypertensive chronic kidney disease with stage 1 through stage 4 chronic kidney disease, or unspecified chronic kidney disease; N18.4 Chronic kidney disease, stage 4 (severe); D63.1 Anemia in chronic kidney disease; N25.81 Secondary hyperparathyroidism of renal origin; E11.22 Type 2 diabetes mellitus with diabetic chronic kidney disease; E11.21 Type 2 diabetes mellitus with diabetic nephropathy; Z88.5 Allergy status to narcotic agent; Z88.4 Allergy status to anesthetic agent
CPT/HCPCS: 96360; 96361; J7030

== ENCOUNTER 2021-10-06 07:41 | Day surgery (SDC) | payer MEDICARE ==
[~2021-10-06 07:41] MED LIST changes: +INSPUMP
== END 2021-10-06 11:56 | disposition home or self-care (01) ==
LOC: ATC 07:41
DX: E86.9 Volume depletion, unspecified (principal)
CPT/HCPCS: J1642; J7030

== ENCOUNTER 2021-10-10 01:54 | Day surgery (SDC) | payer MEDICARE | END 2021-10-10 11:45 | disposition home or self-care (01) | LOC: ATC 01:54 | DX: E86.9 Volume depletion, unspecified (principal) | CPT/HCPCS: 96360; J1642; J7030 ==

== ENCOUNTER 2021-10-13 00:54 | Day surgery (SDC) | payer MEDICARE | END 2021-10-13 12:02 | disposition home or self-care (01) | LOC: ATC 00:54 | DX: E10.42 Type 1 diabetes mellitus with diabetic polyneuropathy (principal); E86.9 Volume depletion, unspecified | CPT/HCPCS: 83036; J1642; J7030 ==

== ENCOUNTER 2021-10-17 03:21 | Day surgery (SDC) | payer MEDICARE | END 2021-10-17 12:09 | disposition home or self-care (01) | LOC: ATC 03:21 | DX: E86.9 Volume depletion, unspecified (principal); I12.9 Hypertensive chronic kidney disease with stage 1 through stage 4 chronic kidney disease, or unspecified chronic kidney disease; N18.4 Chronic kidney disease, stage 4 (severe); E11.22 Type 2 diabetes mellitus with diabetic chronic kidney disease; D63.1 Anemia in chronic kidney disease; N25.81 Secondary hyperparathyroidism of renal origin; E11.21 Type 2 diabetes mellitus with diabetic nephropathy; Z79.82 Long term (current) use of aspirin; Z79.899 Other long term (current) drug therapy | CPT/HCPCS: 96360; 96361; J1642; J7030 ==

== ENCOUNTER → 2021-10-23 | Outpatient (CLI) | payer MEDICARE | END | disposition home or self-care (01) | LOC: LAB SHORT 14:46 → PLD 14:46 | DX: C44.42 Squamous cell carcinoma of skin of scalp and neck (principal) | CPT/HCPCS: 88305 ==

== ENCOUNTER 2021-10-24 05:12 | Day surgery (SDC) | payer MEDICARE | END 2021-10-24 11:48 | disposition home or self-care (01) | LOC: ATC 05:12 | DX: E86.9 Volume depletion, unspecified (principal); I12.9 Hypertensive chronic kidney disease with stage 1 through stage 4 chronic kidney disease, or unspecified chronic kidney disease; E11.22 Type 2 diabetes mellitus with diabetic chronic kidney disease; N18.4 Chronic kidney disease, stage 4 (severe); E11.21 Type 2 diabetes mellitus with diabetic nephropathy; R80.9 Proteinuria, unspecified; E78.00 Pure hypercholesterolemia, unspecified; R31.9 Hematuria, unspecified; E55.9 Vitamin D deficiency, unspecified | CPT/HCPCS: J1642; J7030 ==

== ENCOUNTER 2021-11-03 00:56 | Day surgery (SDC) | payer MEDICARE ==
[2021-11-03 10:31] LABS: Hematocrit 33.6 % (37.0-53.0); Hemoglobin 10.5 g/dL (13.5-17.5)
[2021-11-03 10:53] LABS: Anion Gap 9 mmol/L (6-16); Blood Urea Nitrogen 66 mg/dL (8-24); Bun/Creatinine Ratio 22.4 (12.0-20.0); CO2, Blood 18 mmol/L (21-32); Chloride, Blood 116 mmol/L (98-108); Creatinine, Blood 2.95 mg/dL (0.60-1.20); Glomerular Filtration Rate 22 (60-); Glucose, Blood 171 mg/dL (70-99); Phosphorus, Blood 4.1 mg/dL (2.5-4.9); Potassium, Blood 5.3 mmol/L (3.5-5.5); Sodium, Blood 143 mmol/L (136-145)
[2021-11-03] MEDS ORDERED: CATAPRES0.1 MG PO (10:57)
[2022-01-27] MEDS ORDERED: PROGRAF1 M1 PO (10:09)
== END 2021-11-03 12:04 | disposition home or self-care (01) ==
LOC: ATC 00:56
PROVIDERS: Nurse Practitioner Family
DX: E86.9 Volume depletion, unspecified (principal); I12.9 Hypertensive chronic kidney disease with stage 1 through stage 4 chronic kidney disease, or unspecified chronic kidney disease; N18.4 Chronic kidney disease, stage 4 (severe); D63.1 Anemia in chronic kidney disease; N25.81 Secondary hyperparathyroidism of renal origin; E11.22 Type 2 diabetes mellitus with diabetic chronic kidney disease; E11.21 Type 2 diabetes mellitus with diabetic nephropathy; Z94.0 Kidney transplant status; Z88.5 Allergy status to narcotic agent; Z88.8 Allergy status to other drugs, medicaments and biological substances
CPT/HCPCS: 80069; 85014; 85018; 96360; 96361; J1642; J7030

== ENCOUNTER 2021-11-07 04:47 | Day surgery (SDC) | payer MEDICARE ==
[~2021-11-07 04:47] MED LIST changes: +CATAPRES0.1 MG PO
[2022-01-27] MEDS ORDERED: PROGRAF1 M1 PO (10:09)
== END 2021-11-07 11:57 | disposition home or self-care (01) ==
LOC: ATC 04:47
DX: E86.9 Volume depletion, unspecified (principal); I12.9 Hypertensive chronic kidney disease with stage 1 through stage 4 chronic kidney disease, or unspecified chronic kidney disease; E11.22 Type 2 diabetes mellitus with diabetic chronic kidney disease; N18.4 Chronic kidney disease, stage 4 (severe); D63.1 Anemia in chronic kidney disease; N25.81 Secondary hyperparathyroidism of renal origin; E11.21 Type 2 diabetes mellitus with diabetic nephropathy; E78.00 Pure hypercholesterolemia, unspecified; E55.9 Vitamin D deficiency, unspecified
CPT/HCPCS: 96360; 96361; J1642; J7030

== ENCOUNTER 2021-11-10 02:46 | Day surgery (SDC) | payer MEDICARE | END 2021-11-10 11:15 | disposition home or self-care (01) | LOC: ATC 02:46 | DX: E86.9 Volume depletion, unspecified (principal); I12.9 Hypertensive chronic kidney disease with stage 1 through stage 4 chronic kidney disease, or unspecified chronic kidney disease; E11.22 Type 2 diabetes mellitus with diabetic chronic kidney disease; N18.4 Chronic kidney disease, stage 4 (severe); D63.1 Anemia in chronic kidney disease; Z94.0 Kidney transplant status | CPT/HCPCS: 96360; 96361; J1642; J7030 ==

== ENCOUNTER 2021-11-14 03:26 | Day surgery (SDC) | payer MEDICARE | END 2021-11-14 12:05 | disposition home or self-care (01) | LOC: ATC 03:26 | DX: E86.9 Volume depletion, unspecified (principal); I12.9 Hypertensive chronic kidney disease with stage 1 through stage 4 chronic kidney disease, or unspecified chronic kidney disease; E11.22 Type 2 diabetes mellitus with diabetic chronic kidney disease; N18.4 Chronic kidney disease, stage 4 (severe); D63.1 Anemia in chronic kidney disease; N25.81 Secondary hyperparathyroidism of renal origin; E78.00 Pure hypercholesterolemia, unspecified; E55.9 Vitamin D deficiency, unspecified; Z94.0 Kidney transplant status; Z88.4 Allergy status to anesthetic agent; Z88.5 Allergy status to narcotic agent | CPT/HCPCS: 96360; 96361; J1642; J7030 ==

== ENCOUNTER 2021-11-17 00:47 | Day surgery (SDC) | payer MEDICARE | END 2021-11-17 11:35 | disposition home or self-care (01) | LOC: ATC 00:47 | DX: E86.9 Volume depletion, unspecified (principal); I12.9 Hypertensive chronic kidney disease with stage 1 through stage 4 chronic kidney disease, or unspecified chronic kidney disease; N18.4 Chronic kidney disease, stage 4 (severe); Z88.5 Allergy status to narcotic agent; Z88.8 Allergy status to other drugs, medicaments and biological substances; D63.1 Anemia in chronic kidney disease; N25.81 Secondary hyperparathyroidism of renal origin; E11.22 Type 2 diabetes mellitus with diabetic chronic kidney disease; E78.00 Pure hypercholesterolemia, unspecified; E55.9 Vitamin D deficiency, unspecified | CPT/HCPCS: 96360; 96361; J1642; J7030 ==

== ENCOUNTER 2021-11-21 02:47 | Day surgery (SDC) | payer MEDICARE | END 2021-11-21 11:43 | disposition home or self-care (01) | LOC: ATC 02:47 | DX: E86.9 Volume depletion, unspecified (principal) | CPT/HCPCS: 96360; 96361; J1642; J7030 ==

== ENCOUNTER 2021-11-24 01:07 | Day surgery (SDC) | payer MEDICARE | END 2021-11-24 11:32 | disposition home or self-care (01) | LOC: ATC 01:07 | DX: E86.9 Volume depletion, unspecified (principal); E11.22 Type 2 diabetes mellitus with diabetic chronic kidney disease; I12.9 Hypertensive chronic kidney disease with stage 1 through stage 4 chronic kidney disease, or unspecified chronic kidney disease; N18.4 Chronic kidney disease, stage 4 (severe); D63.1 Anemia in chronic kidney disease; N25.81 Secondary hyperparathyroidism of renal origin; Z79.82 Long term (current) use of aspirin; Z88.5 Allergy status to narcotic agent; Z88.4 Allergy status to anesthetic agent; E78.00 Pure hypercholesterolemia, unspecified; E55.9 Vitamin D deficiency, unspecified | CPT/HCPCS: 96360; 96361; J1642; J7030 ==

== ENCOUNTER 2021-11-28 00:55 | Day surgery (SDC) | payer MEDICARE ==
[2021-11-28 08:43] LABS: BASOPHILS ABSOLUTE AUTO 0.02 K/mm3 (0.00-0.23); BASOPHILS PERCENT AUTO 1 % (0-2); EOSINOPHILS ABSOLUTE AUTO 0.15 K/mm3 (0.00-0.68); EOSINOPHILS PERCENT AUTO 4 % (0-6); Hemoglobin 10.2 g/dL (13.5-17.5); IMMATURE GRAN ABSOLUTE AUTO 0.01 K/mm3 (0.00-0.10); IMMATURE GRAN PERCENT AUTO 0 % (0-1); LYMPHOCYTES ABSOLUTE AUTO 0.68 K/mm3 (0.84-5.20); LYMPHOCYTES PERCENT AUTO 18 % (21-46); MONOCYTES ABSOLUTE AUTO 0.44 K/mm3 (0.16-1.47); MONOCYTES PERCENT AUTO 12 % (4-13); Mean Corpuscular HGB 28.7 pg (26.0-34.0); Mean Corpuscular HGB Conc 30.9 g/dL (31.5-36.5); Mean Corpuscular Volume 93 fL (80-100); Mean Platelet Volume 10.9 fL (9.1-12.4); NEUTROPHILS ABSOLUTE AUTO 2.52 K/mm3 (1.96-9.15); NEUTROPHILS PERCENT AUTO 66 % (41-73); Platelet Count 101 K/mm3 (150-400); RDW Coefficient Variation 15.9 % (11.7-14.2); RDW Standard Deviation 54.4 fL (35.1-46.3); Red Blood Cell Count 3.56 M/mm3 (4.30-5.90); White Blood Cell Count 3.82 K/mm3 (4.00-11.30)
[2021-11-28 09:09] LABS: Alanine Aminotransfer (ALT/SGP 32 U/L (12-78); Albumin, Blood 2.9 g/dL (3.4-5.0); Albumin/Globulin Ratio 0.9 (0.8-1.8); Alk Phos 82 U/L (50-136); Anion Gap 7 mmol/L (6-16); Aspartate Aminotrans (AST/SGOT 21 U/L (12-37); Bilirubin, Direct 0.1 mg/dL (0.0-0.3); Bilirubin, Indirect 0.4 mg/dL (0.1-0.7); Bilirubin, Total 0.5 mg/dL (0.1-1.0); Blood Urea Nitrogen 76 mg/dL (8-24); Bun/Creatinine Ratio 21.2 (12.0-20.0); CO2, Blood 20 mmol/L (21-32); Chloride, Blood 117 mmol/L (98-108); Creatinine, Blood 3.58 mg/dL (0.60-1.20); Globulin, Blood 3.2 g/dL (2.2-4.0); Glomerular Filtration Rate 17 (60-); Glucose, Blood 115 mg/dL (70-99); Phosphorus, Blood 4.3 mg/dL (2.5-4.9); Potassium, Blood 5.1 mmol/L (3.5-5.5); Sodium, Blood 144 mmol/L (136-145); Total Protein, Blood 6.1 g/dL (6.4-8.2)
--- NOTE | 2021-11-28 10:55 | NUR ---
ASKED RN TO TAKE ANOTHER BLOOD PRESSURE, BECAUSE RAYMOND "FELT OFF", BP WAS 209/86, DR STEVEN NOTIFIED, ORDERS GIVEN TO GIVE .1 CHOLONODINE PO NOW AND THEN DISCHARGE PT
== END 2021-11-28 11:40 | disposition home or self-care (01) ==
LOC: ATC 00:55
PROVIDERS: Internal Medicine Nephrology
DX: E86.9 Volume depletion, unspecified (principal); Z88.5 Allergy status to narcotic agent; Z88.4 Allergy status to anesthetic agent; E11.22 Type 2 diabetes mellitus with diabetic chronic kidney disease; I12.9 Hypertensive chronic kidney disease with stage 1 through stage 4 chronic kidney disease, or unspecified chronic kidney disease; N18.4 Chronic kidney disease, stage 4 (severe); E78.00 Pure hypercholesterolemia, unspecified; E55.9 Vitamin D deficiency, unspecified
CPT/HCPCS: 80053; 80197; 82248; 84100; 85025; 96360; 96361; 99211; A9270; J1642; J7030

== ENCOUNTER 2021-12-01 02:15 | Day surgery (SDC) | payer MEDICARE | END 2021-12-01 11:25 | disposition home or self-care (01) | LOC: ATC 02:15 | DX: E86.9 Volume depletion, unspecified (principal); E11.22 Type 2 diabetes mellitus with diabetic chronic kidney disease; I12.9 Hypertensive chronic kidney disease with stage 1 through stage 4 chronic kidney disease, or unspecified chronic kidney disease; N18.4 Chronic kidney disease, stage 4 (severe); D63.1 Anemia in chronic kidney disease; N25.81 Secondary hyperparathyroidism of renal origin; E78.00 Pure hypercholesterolemia, unspecified; Z94.0 Kidney transplant status; Z88.5 Allergy status to narcotic agent; Z88.4 Allergy status to anesthetic agent | CPT/HCPCS: 96360; 96361; J1642; J7030 ==

== ENCOUNTER 2021-12-05 00:29 | Day surgery (SDC) | payer MEDICARE | END 2021-12-05 11:39 | disposition home or self-care (01) | LOC: ATC 00:29 | DX: E86.9 Volume depletion, unspecified (principal) | CPT/HCPCS: 96360; 96361; J1642; J7030 ==

== ENCOUNTER 2021-12-08 01:40 | Day surgery (SDC) | payer MEDICARE ==
[2021-12-08] MEDS ORDERED: SODIUM CHLORIDE10 M1 IV (10:48)
== END 2021-12-08 11:40 | disposition home or self-care (01) ==
LOC: ATC 01:40
DX: E86.9 Volume depletion, unspecified (principal)
CPT/HCPCS: 96360; 96361; J1642; J7030

== ENCOUNTER 2021-12-12 00:34 | Day surgery (SDC) | payer MEDICARE ==
[~2021-12-12 00:34] MED LIST changes: +SODIUM CHLORIDE10 M1 IV
== END 2021-12-12 11:45 | disposition home or self-care (01) ==
LOC: ATC 00:34
DX: E86.9 Volume depletion, unspecified (principal); E11.22 Type 2 diabetes mellitus with diabetic chronic kidney disease; I12.9 Hypertensive chronic kidney disease with stage 1 through stage 4 chronic kidney disease, or unspecified chronic kidney disease; N18.4 Chronic kidney disease, stage 4 (severe); D63.1 Anemia in chronic kidney disease; N25.81 Secondary hyperparathyroidism of renal origin; E78.00 Pure hypercholesterolemia, unspecified; E55.9 Vitamin D deficiency, unspecified; Z88.5 Allergy status to narcotic agent; Z88.4 Allergy status to anesthetic agent
CPT/HCPCS: 96360; 96361; J1642; J7030

== ENCOUNTER 2021-12-15 00:40 | Day surgery (SDC) | payer MEDICARE | END 2021-12-15 11:44 | disposition home or self-care (01) | LOC: ATC 00:40 | DX: E86.9 Volume depletion, unspecified (principal) | CPT/HCPCS: J1642; J7030 ==

== ENCOUNTER 2021-12-19 04:06 | Day surgery (SDC) | payer MEDICARE | END 2021-12-19 11:55 | disposition home or self-care (01) | LOC: ATC 04:06 | DX: E86.9 Volume depletion, unspecified (principal); I12.9 Hypertensive chronic kidney disease with stage 1 through stage 4 chronic kidney disease, or unspecified chronic kidney disease; N18.4 Chronic kidney disease, stage 4 (severe); D63.1 Anemia in chronic kidney disease; N25.81 Secondary hyperparathyroidism of renal origin; E11.21 Type 2 diabetes mellitus with diabetic nephropathy; Z79.82 Long term (current) use of aspirin; Z79.899 Other long term (current) drug therapy | CPT/HCPCS: 96360; 96361; J1642; J7030 ==

== ENCOUNTER 2021-12-22 02:03 | Day surgery (SDC) | payer MEDICARE | END 2021-12-22 11:52 | disposition home or self-care (01) | LOC: ATC 02:03 | DX: E86.9 Volume depletion, unspecified (principal); E11.22 Type 2 diabetes mellitus with diabetic chronic kidney disease; I12.9 Hypertensive chronic kidney disease with stage 1 through stage 4 chronic kidney disease, or unspecified chronic kidney disease; N18.4 Chronic kidney disease, stage 4 (severe); D63.1 Anemia in chronic kidney disease; N25.81 Secondary hyperparathyroidism of renal origin; E78.00 Pure hypercholesterolemia, unspecified; Z88.5 Allergy status to narcotic agent; Z88.4 Allergy status to anesthetic agent | CPT/HCPCS: J1642; J7030 ==

== ENCOUNTER 2021-12-26 01:40 | Day surgery (SDC) | payer MEDICARE | END 2021-12-26 11:44 | disposition home or self-care (01) | LOC: ATC 01:40 | DX: E86.9 Volume depletion, unspecified (principal) | CPT/HCPCS: 96360; 96361; J1642; J7030 ==

== ENCOUNTER 2021-12-29 01:22 | Day surgery (SDC) | payer MEDICARE | END 2021-12-29 11:38 | disposition home or self-care (01) | LOC: ATC 01:22 | DX: E86.9 Volume depletion, unspecified (principal); E11.22 Type 2 diabetes mellitus with diabetic chronic kidney disease; I12.9 Hypertensive chronic kidney disease with stage 1 through stage 4 chronic kidney disease, or unspecified chronic kidney disease; N18.4 Chronic kidney disease, stage 4 (severe); D63.1 Anemia in chronic kidney disease; N25.81 Secondary hyperparathyroidism of renal origin; E78.00 Pure hypercholesterolemia, unspecified; E55.9 Vitamin D deficiency, unspecified; Z88.4 Allergy status to anesthetic agent; Z88.5 Allergy status to narcotic agent | CPT/HCPCS: 96360; 96361; J1642; J7030 ==

== ENCOUNTER 2022-01-02 00:30 | Day surgery (SDC) | payer MEDICARE | END 2022-01-02 11:51 | disposition home or self-care (01) | LOC: ATC 00:30 | DX: E86.9 Volume depletion, unspecified (principal); I12.9 Hypertensive chronic kidney disease with stage 1 through stage 4 chronic kidney disease, or unspecified chronic kidney disease; N18.4 Chronic kidney disease, stage 4 (severe); E11.22 Type 2 diabetes mellitus with diabetic chronic kidney disease; D63.1 Anemia in chronic kidney disease; N25.81 Secondary hyperparathyroidism of renal origin; E11.21 Type 2 diabetes mellitus with diabetic nephropathy; Z88.5 Allergy status to narcotic agent; Z88.8 Allergy status to other drugs, medicaments and biological substances; Z79.899 Other long term (current) drug therapy | CPT/HCPCS: 96360; 96361; J1642; J7030 ==

== ENCOUNTER 2022-01-05 01:23 | Day surgery (SDC) | payer MEDICARE | END 2022-01-05 11:34 | disposition home or self-care (01) | LOC: ATC 01:23 | DX: E86.9 Volume depletion, unspecified (principal); E11.22 Type 2 diabetes mellitus with diabetic chronic kidney disease; I12.9 Hypertensive chronic kidney disease with stage 1 through stage 4 chronic kidney disease, or unspecified chronic kidney disease; N18.4 Chronic kidney disease, stage 4 (severe); D63.1 Anemia in chronic kidney disease; N25.81 Secondary hyperparathyroidism of renal origin; E78.00 Pure hypercholesterolemia, unspecified; E55.9 Vitamin D deficiency, unspecified | CPT/HCPCS: 96360; 96361; J1642; J7030 ==

== ENCOUNTER 2022-01-27 09:14 | Emergency (ER) | payer MEDICARE ==
[~2022-01-27] VITALS: Ht 185.4 cm; Wt 83.9 kg
[2022-01-27] MEDS ORDERED: TACROLIMUS PO (10:09)
[2022-01-27] MEDS ORDERED: HYDR10 PO (10:09)
[2022-01-27] MEDS ORDERED: Valium5 MG PO (11:46)
== END 2022-01-27 13:48 | disposition home or self-care (01) ==
LOC: ER 09:14
DX: M54.2 Cervicalgia (principal); E78.5 Hyperlipidemia, unspecified; I12.0 Hypertensive chronic kidney disease with stage 5 chronic kidney disease or end stage renal disease; N18.6 End stage renal disease; Z88.5 Allergy status to narcotic agent; Z88.8 Allergy status to other drugs, medicaments and biological substances; Z79.899 Other long term (current) drug therapy; Z79.82 Long term (current) use of aspirin; Z79.4 Long term (current) use of insulin; Z79.02 Long term (current) use of antithrombotics/antiplatelets; Z79.52 Long term (current) use of systemic steroids; Z94.0 Kidney transplant status; Z86.73 Personal history of transient ischemic attack (TIA), and cerebral infarction without residual deficits; Z95.0 Presence of cardiac pacemaker; Z87.891 Personal history of nicotine dependence
CPT/HCPCS: 96372; 99283-25; J1642; J3360

== ENCOUNTER 2022-01-30 00:27 | Day surgery (SDC) | payer MEDICARE ==
[~2022-01-30 00:27] MED LIST changes: +HYDR10 PO; +TACROLIMUS PO; +Valium5 MG PO
== END 2022-01-30 11:23 | disposition home or self-care (01) ==
LOC: ATC 00:27
DX: I12.9 Hypertensive chronic kidney disease with stage 1 through stage 4 chronic kidney disease, or unspecified chronic kidney disease (principal); N18.4 Chronic kidney disease, stage 4 (severe); D63.1 Anemia in chronic kidney disease; N25.81 Secondary hyperparathyroidism of renal origin; E55.9 Vitamin D deficiency, unspecified; E78.00 Pure hypercholesterolemia, unspecified; R76.9 Abnormal immunological finding in serum, unspecified; R94.5 Abnormal results of liver function studies; R94.6 Abnormal results of thyroid function studies; Z94.0 Kidney transplant status; Z79.82 Long term (current) use of aspirin; Z88.5 Allergy status to narcotic agent
CPT/HCPCS: J1642; J7030; J7040

== ENCOUNTER 2022-02-02 03:00 | Day surgery (SDC) | payer MEDICARE ==
[2022-02-02 09:17] LABS: BASOPHILS ABSOLUTE AUTO 0.01 K/mm3 (0.00-0.23); BASOPHILS PERCENT AUTO 0 % (0-2); EOSINOPHILS ABSOLUTE AUTO 0.12 K/mm3 (0.00-0.68); EOSINOPHILS PERCENT AUTO 3 % (0-6); Hematocrit 27.1 % (37.0-53.0); Hemoglobin 8.5 g/dL (13.5-17.5); IMMATURE GRAN ABSOLUTE AUTO 0.02 K/mm3 (0.00-0.10); IMMATURE GRAN PERCENT AUTO 0 % (0-1); LYMPHOCYTES ABSOLUTE AUTO 0.77 K/mm3 (0.84-5.20); LYMPHOCYTES PERCENT AUTO 17 % (21-46); MONOCYTES ABSOLUTE AUTO 0.42 K/mm3 (0.16-1.47); MONOCYTES PERCENT AUTO 9 % (4-13); Mean Corpuscular HGB 29.7 pg (26.0-34.0); Mean Corpuscular HGB Conc 31.4 g/dL (31.5-36.5); Mean Corpuscular Volume 95 fL (80-100); Mean Platelet Volume 11.3 fL (9.1-12.4); NEUTROPHILS ABSOLUTE AUTO 3.23 K/mm3 (1.96-9.15); NEUTROPHILS PERCENT AUTO 71 % (41-73); Platelet Count 122 K/mm3 (150-400); RDW Coefficient Variation 18.1 % (11.7-14.2); RDW Standard Deviation 62.9 fL (35.1-46.3); Red Blood Cell Count 2.86 M/mm3 (4.30-5.90); White Blood Cell Count 4.57 K/mm3 (4.00-11.30)
[2022-02-02 09:46] LABS: Alanine Aminotransfer (ALT/SGP 33 U/L (12-78); Albumin, Blood 2.9 g/dL (3.4-5.0); Albumin/Globulin Ratio 0.9 (0.8-1.8); Alk Phos 64 U/L (50-136); Anion Gap 4 mmol/L (6-16); Aspartate Aminotrans (AST/SGOT 20 U/L (12-37); Bilirubin, Direct 0.1 mg/dL (0.0-0.3); Bilirubin, Indirect 0.3 mg/dL (0.1-0.7); Bilirubin, Total 0.4 mg/dL (0.1-1.0); Blood Urea Nitrogen 83 mg/dL (8-24); Bun/Creatinine Ratio 20.5 (12.0-20.0); CO2, Blood 23 mmol/L (21-32); Calcium, Blood 8.5 mg/dL (8.5-10.1); Chloride, Blood 114 mmol/L (98-108); Creatinine, Blood 4.04 mg/dL (0.60-1.20); Globulin, Blood 3.3 g/dL (2.2-4.0); Glomerular Filtration Rate 15 (60-); Glucose, Blood 121 mg/dL (70-99); Phosphorus, Blood 4.9 mg/dL (2.5-4.9); Potassium, Blood 5.5 mmol/L (3.5-5.5); Sodium, Blood 141 mmol/L (136-145); Total Protein, Blood 6.2 g/dL (6.4-8.2)
[2022-02-05 13:08] LABS: BK QUANTITATION PCR Negative (Negative)
== END 2022-02-02 10:14 | disposition home or self-care (01) ==
LOC: ATC 03:00
PROVIDERS: Internal Medicine Nephrology
DX: E86.9 Volume depletion, unspecified (principal); I12.9 Hypertensive chronic kidney disease with stage 1 through stage 4 chronic kidney disease, or unspecified chronic kidney disease; N18.4 Chronic kidney disease, stage 4 (severe); D63.1 Anemia in chronic kidney disease; N25.81 Secondary hyperparathyroidism of renal origin; E11.22 Type 2 diabetes mellitus with diabetic chronic kidney disease; E78.00 Pure hypercholesterolemia, unspecified
CPT/HCPCS: 80053; 80197; 82248; 84100; 85025; 87799; J1642; J7030

== ENCOUNTER 2022-02-09 03:29 | Day surgery (SDC) | payer MEDICARE ==
[~2022-02-09 03:29] MED LIST changes: +XARELTO2.5 M1 PO
[2022-03-05] MEDS ORDERED: HYDR10 PO (06:58)
[2022-03-05] MEDS ORDERED: DHEA PO (07:00)
[2022-03-05] MEDS ORDERED: TACROLIMUS0.5 M1 PO (07:02)
== END 2022-02-09 11:00 | disposition home or self-care (01) ==
LOC: ATC 03:29
DX: I12.9 Hypertensive chronic kidney disease with stage 1 through stage 4 chronic kidney disease, or unspecified chronic kidney disease (principal); E11.22 Type 2 diabetes mellitus with diabetic chronic kidney disease; N18.4 Chronic kidney disease, stage 4 (severe); N25.81 Secondary hyperparathyroidism of renal origin; E55.9 Vitamin D deficiency, unspecified; D63.1 Anemia in chronic kidney disease; E78.00 Pure hypercholesterolemia, unspecified; Z94.0 Kidney transplant status; Z88.5 Allergy status to narcotic agent; Z88.4 Allergy status to anesthetic agent
CPT/HCPCS: 96360; 96361; J1642; J7030; J7040

== ENCOUNTER 2022-02-13 02:46 | Day surgery (SDC) | payer MEDICARE ==
[~2022-02-13 02:46] MED LIST changes: -XARELTO2.5 M1 PO
[2022-02-13 10:08] LABS: Hematocrit 25.4 % (37.0-53.0); Hemoglobin 7.9 g/dL (13.5-17.5); Mean Corpuscular HGB 29.2 pg (26.0-34.0); Mean Corpuscular HGB Conc 31.1 g/dL (31.5-36.5); Mean Corpuscular Volume 94 fL (80-100); Mean Platelet Volume 10.4 fL (9.1-12.4); Platelet Count 87 K/mm3 (150-400); RDW Coefficient Variation 17.7 % (11.7-14.2); RDW Standard Deviation 61.2 fL (35.1-46.3); Red Blood Cell Count 2.71 M/mm3 (4.30-5.90); White Blood Cell Count 4.14 K/mm3 (4.00-11.30)
[2022-02-13 10:19] LABS: International Normalized Ratio 1.02; Prothrombin Time Results 10.7 Sec (9.7-11.5)
[2022-02-13 10:25] LABS: Bun/Creatinine Ratio 22.4 (12.0-20.0); Calcium, Blood 7.8 mg/dL (8.5-10.1); Creatinine, Blood 3.98 mg/dL (0.60-1.20); Potassium, Blood 5.2 mmol/L (3.5-5.5)
[2022-02-13 10:47] LABS: BASOPHILS ABSOLUTE MAN 0.04 K/mm3 (0.00-0.23); BASOPHILS PERCENT MAN 1 % (0-2); EOSINOPHILS ABSOLUTE MAN 0.16 K/mm3 (0.00-0.68); EOSINOPHILS PERCENT MAN 4 % (0-6); LYMPHOCYTES ABSOLUTE MAN 0.66 K/mm3 (0.84-5.20); LYMPHOCYTES PERCENT MAN 16 % (21-46); MONOCYTES ABSOLUTE MAN 0.33 K/mm3 (0.16-1.47); MONOCYTES PERCENT MAN 8 % (4-13); NEUTROPHILS ABSOLUTE MAN 2.93 K/mm3 (1.96-9.15); SEG NEUTROPHILS PERCENT MAN 71 % (41-73); TOTAL CELLS COUNTED 100
[2022-02-13] MEDS ORDERED: CATAPRES0.1 MG PO (16:08)
[2022-02-13] MEDS ORDERED: EFUDEX40 GM TOP (16:09)
[2022-02-13] MEDS ORDERED: Norco 10-325 T1 EACH PO (16:10)
[2022-02-13] MEDS ORDERED: LIOT25 PO (16:11)
[2022-02-13] MEDS ORDERED: MIRT30 PO (16:12)
[2022-02-13] MEDS ORDERED: TESTOSTERONE CREAM TOP (16:16)
== END 2022-02-13 11:13 | disposition home or self-care (01) ==
LOC: ATC 02:46
PROVIDERS: Physician Assistant
DX: I12.9 Hypertensive chronic kidney disease with stage 1 through stage 4 chronic kidney disease, or unspecified chronic kidney disease (principal); E11.22 Type 2 diabetes mellitus with diabetic chronic kidney disease; N18.4 Chronic kidney disease, stage 4 (severe); N25.81 Secondary hyperparathyroidism of renal origin; E78.00 Pure hypercholesterolemia, unspecified; D63.1 Anemia in chronic kidney disease; Z79.01 Long term (current) use of anticoagulants; Z79.82 Long term (current) use of aspirin; Z88.5 Allergy status to narcotic agent; Z88.4 Allergy status to anesthetic agent
CPT/HCPCS: 80048; 85007; 85027; 85610; J1642; J7030; J7040

== ENCOUNTER 2022-02-14 08:38 | Day surgery (SDC) | payer MEDICARE ==
[~2022-02-14] VITALS: Ht 185.4 cm; Wt 82.0 kg
[~2022-02-14 08:38] MED LIST changes: +EFUDEX40 GM TOP; +Norco 10-325 T1 EACH PO; +TESTOSTERONE CREAM TOP
--- NOTE | 2022-02-14 10:35 | NUR ---
PT TO RECOVERY ROOM POST PROCEDURE. PT AWAKE AND CONVERSING APPROPRIATELY; DENIES PAIN AT SITE. MONITOR SR 60'S, B/P 119/89, SPO2 98% RA, AFEBRILE. L RADIAL SITE NO SWELLING/HEMATOMA, TR BAND IN PLACE; LUE POSITIVE PLEUTH POST TR BAND PLACEMENT.
--- NOTE | 2022-02-14 11:25 | NUR ---
DR REYNA INTO TALK WITH PT AND .
--- NOTE | 2022-02-14 12:35 | NUR ---
PT'S TR BAND FULLY DEFLATED, SITE WITHOUT SWELLING/HEMATOMA.
--- NOTE | 2022-02-14 13:15 | NUR ---
PT AMB TO THE BATHROOM, GAIT STEADY; SITE UNCHANGED.
--- NOTE | 2022-02-14 13:20 | NUR ---
PT DRESSED SELF WITH ASSISTANCE. TR BAND REMOVED, CLOTH DOT AND WRIST IMMOBILIZER PLACED; IV REMOVED-CANNULA INTACT.
--- NOTE | 2022-02-14 13:31 | NUR ---
PT AND RECEIVED DISCHARGE INSTRUCTIONS, MED LIST AND AFTER CARE INSTRUCTIONS; VERBALIZED GOOD UNDERSTANDING. PT LEFT FACILITY VIA W/C, CONDITION STABLE.
== END 2022-02-14 13:30 | disposition home or self-care (01) ==
LOC: MHTC 08:38
DX: I12.9 Hypertensive chronic kidney disease with stage 1 through stage 4 chronic kidney disease, or unspecified chronic kidney disease (principal); E11.22 Type 2 diabetes mellitus with diabetic chronic kidney disease; N18.4 Chronic kidney disease, stage 4 (severe); T82.590A Other mechanical complication of surgically created arteriovenous fistula, initial encounter; G35 Multiple sclerosis; E78.5 Hyperlipidemia, unspecified; E11.42 Type 2 diabetes mellitus with diabetic polyneuropathy; E11.51 Type 2 diabetes mellitus with diabetic peripheral angiopathy without gangrene; I70.213 Atherosclerosis of native arteries of extremities with intermittent claudication, bilateral legs; E03.9 Hypothyroidism, unspecified; N25.81 Secondary hyperparathyroidism of renal origin; E55.9 Vitamin D deficiency, unspecified; Z94.0 Kidney transplant status; Z86.73 Personal history of transient ischemic attack (TIA), and cerebral infarction without residual deficits; Z94.83 Pancreas transplant status; Z95.0 Presence of cardiac pacemaker; Z87.891 Personal history of nicotine dependence; Z88.5 Allergy status to narcotic agent; Z88.6 Allergy status to analgesic agent; Z79.82 Long term (current) use of aspirin; Z79.4 Long term (current) use of insulin; Z79.01 Long term (current) use of anticoagulants
CPT/HCPCS: 36901; 75710; 76937; 99152; 99153; C1769; C1887; C1894; J1644; J2250; J3010; J7030; J7042; Q9967

== ENCOUNTER 2022-02-16 00:28 | Day surgery (SDC) | payer MEDICARE ==
--- NOTE | 2022-02-16 09:52 | NUR ---
DR STEVEN OFFICE CALLED, SPOKE WITH CHIARA, SHE IS RELAYING THE ELEVATED BP'S THAT WE GOT AT [facility] THIS AM BEFORE [facility]AGER INFUSSION. DR STEVEN IN PT ROOM CURRENTLY. SHE WILL CALL BACK ONCE SHE SPEAKS TO HIM
--- NOTE | 2022-02-16 11:18 | NUR ---
@1110 PT DECLINED REPEAT BP, DR STEVEN HAS NOT CALLED BACK YET, PT STATES HE WILL FOLLOW UP WITH DR STEVEN AND CALL BACK.
== END 2022-02-16 11:10 | disposition home or self-care (01) ==
LOC: ATC 00:28
DX: I12.9 Hypertensive chronic kidney disease with stage 1 through stage 4 chronic kidney disease, or unspecified chronic kidney disease (principal); E11.22 Type 2 diabetes mellitus with diabetic chronic kidney disease; N18.4 Chronic kidney disease, stage 4 (severe); D63.1 Anemia in chronic kidney disease; N25.81 Secondary hyperparathyroidism of renal origin; E78.00 Pure hypercholesterolemia, unspecified
CPT/HCPCS: J1642; J7030

== ENCOUNTER 2022-02-20 01:35 | Day surgery (SDC) | payer MEDICARE | END 2022-02-20 11:21 | disposition home or self-care (01) | LOC: ATC 01:35 | DX: I12.9 Hypertensive chronic kidney disease with stage 1 through stage 4 chronic kidney disease, or unspecified chronic kidney disease (principal); N18.4 Chronic kidney disease, stage 4 (severe); D63.1 Anemia in chronic kidney disease; N25.81 Secondary hyperparathyroidism of renal origin; E11.22 Type 2 diabetes mellitus with diabetic chronic kidney disease; E86.9 Volume depletion, unspecified; R80.9 Proteinuria, unspecified; E78.00 Pure hypercholesterolemia, unspecified; R31.9 Hematuria, unspecified; E55.9 Vitamin D deficiency, unspecified; M06.00 Rheumatoid arthritis without rheumatoid factor, unspecified site; M85.80 Other specified disorders of bone density and structure, unspecified site; Z94.0 Kidney transplant status | CPT/HCPCS: 96360; 96361; J1642; J7030; J7040 ==

== ENCOUNTER 2022-02-23 02:09 | Day surgery (SDC) | payer MEDICARE | END 2022-02-23 11:20 | disposition home or self-care (01) | LOC: ATC 02:09 | DX: I12.9 Hypertensive chronic kidney disease with stage 1 through stage 4 chronic kidney disease, or unspecified chronic kidney disease (principal); N18.4 Chronic kidney disease, stage 4 (severe); N25.81 Secondary hyperparathyroidism of renal origin; D63.1 Anemia in chronic kidney disease; E11.22 Type 2 diabetes mellitus with diabetic chronic kidney disease; E78.00 Pure hypercholesterolemia, unspecified; E55.9 Vitamin D deficiency, unspecified; M06.00 Rheumatoid arthritis without rheumatoid factor, unspecified site; M85.80 Other specified disorders of bone density and structure, unspecified site; Z94.0 Kidney transplant status; Z88.5 Allergy status to narcotic agent | CPT/HCPCS: J1642; J7030 ==

== ENCOUNTER 2022-03-02 01:34 | Day surgery (SDC) | payer MEDICARE ==
[2022-03-02 11:13] LABS: BASOPHILS ABSOLUTE AUTO 0.01 K/mm3 (0.00-0.23); BASOPHILS PERCENT AUTO 0 % (0-2); EOSINOPHILS ABSOLUTE AUTO 0.12 K/mm3 (0.00-0.68); EOSINOPHILS PERCENT AUTO 3 % (0-6); Hematocrit 25.1 % (37.0-53.0); Hemoglobin 7.7 g/dL (13.5-17.5); IMMATURE GRAN ABSOLUTE AUTO 0.02 K/mm3 (0.00-0.10); IMMATURE GRAN PERCENT AUTO 1 % (0-1); LYMPHOCYTES ABSOLUTE AUTO 0.48 K/mm3 (0.84-5.20); LYMPHOCYTES PERCENT AUTO 13 % (21-46); MONOCYTES PERCENT AUTO 10 % (4-13); Mean Corpuscular HGB 28.7 pg (26.0-34.0); Mean Corpuscular HGB Conc 30.7 g/dL (31.5-36.5); Mean Corpuscular Volume 94 fL (80-100); Mean Platelet Volume 11.1 fL (9.1-12.4); NEUTROPHILS PERCENT AUTO 73 % (41-73); Platelet Count 86 K/mm3 (150-400); RDW Coefficient Variation 17.2 % (11.7-14.2); RDW Standard Deviation 58.9 fL (35.1-46.3); Red Blood Cell Count 2.68 M/mm3 (4.30-5.90); White Blood Cell Count 3.83 K/mm3 (4.00-11.30)
[2022-03-02 11:29] LABS: Bun/Creatinine Ratio 22.4 (12.0-20.0); Calcium, Blood 8.1 mg/dL (8.5-10.1); Creatinine, Blood 4.11 mg/dL (0.60-1.20)
[2022-03-02 11:45] LABS: International Normalized Ratio 1.06; Prothrombin Time Results 11.1 Sec (9.7-11.5)
[2022-03-03 09:10] LABS: HCV ANTIBODY <0.1 (0.0-0.9); HEP B CORE AB, TOT Negative (Negative)
[2022-03-05] MEDS ORDERED: HYDR10 PO (06:58)
[2022-03-05] MEDS ORDERED: DHEA PO (07:00)
[2022-03-05] MEDS ORDERED: TACROLIMUS0.5 M1 PO (07:02)
== END 2022-03-02 11:51 | disposition home or self-care (01) ==
LOC: ATC 01:34
PROVIDERS: Internal Medicine Nephrology; Radiology Diagnostic Radiology
DX: I12.0 Hypertensive chronic kidney disease with stage 5 chronic kidney disease or end stage renal disease (principal); N18.6 End stage renal disease; D63.1 Anemia in chronic kidney disease; E11.22 Type 2 diabetes mellitus with diabetic chronic kidney disease; E86.9 Volume depletion, unspecified; E55.9 Vitamin D deficiency, unspecified; N25.81 Secondary hyperparathyroidism of renal origin
CPT/HCPCS: 80048; 85025; 85610; 86704; 86803; 96360; 96361; J1642; J7030; J7040

== ENCOUNTER 2022-03-05 07:04 | Inpatient (IN) | payer MEDICARE ==
[~2022-03-05] VITALS: Wt 85.0 kg
[~2022-03-05 07:04] MED LIST changes: -Budeprion Xl300 MG PO; +TACROLIMUS0.5 M1 PO; +XARELTO2.5 M1 PO
--- NOTE | 2022-03-05 10:00 | NUR ---
PT RESTING COMFORTABLY. VSS. NADN. R SIDED PERMA CATHETER IN PLACE. NO BLEEDING NOTED. PT CAREGIVER, BRICE AT BEDSIDE. PT WILL BE ADMITTED TO MEDICAL FLOOR FOR HYDRATION AND DIALYSIS TODAY. CALL LIGHT WITHIN REACH. AWAITING BED ASSIGNMENT.
[2022-03-05] MEDS ORDERED: TACR1 PO (16:18)
[2022-03-05 16:24] LABS: Albumin, Blood 2.8 g/dL (3.4-5.0); Anion Gap 5 mmol/L (6-16); Blood Urea Nitrogen 79 mg/dL (8-24); Bun/Creatinine Ratio 19.8 (12.0-20.0); CO2, Blood 18 mmol/L (21-32); Calcium, Blood 8.2 mg/dL (8.5-10.1); Chloride, Blood 118 mmol/L (98-108); Glomerular Filtration Rate 15 (60-); Glucose, Blood 224 mg/dL (70-99); Phosphorus, Blood 5.3 mg/dL (2.5-4.9); Potassium, Blood 5.7 mmol/L (3.5-5.5); Sodium, Blood 141 mmol/L (136-145)
--- NOTE | 2022-03-05 18:36 | NUR ---
LATE ENTRY/RECEIVED ADMIT FROM [facility] 1015: RECEIVED REPORT FROM CLAY TAYLOR. 1045: RECEIVED PT VIA W/C, PLACED IN BED MADE COMFORTABLE, ORIENTED TO ROOM AND UNIT ROUTINE. PT HAS T1 DIABETES & HAS A CGM & AN INSULIN PUMP, THE TANDEM t:SLIM. IS A&O X 4 AND COMPETENT IN USING HIS PUMP AND DOSING. HIS WILL BRING IN ALL OF HIS SUPPLIES & HIS INSULIN TO CHANGE HIS INSERTION SITE ON 03/07. HIS CURRENT SITE WAS INSERTED 03/04/22. HIS CGM IS THE [employer] G6. HE IA AGREEABLE TO [facility]'s CONTRACT TO BE ABLE TO KEEP HIS PUMP & CGM. CONTRACT SIGNED & ON HIS CHART. BASAL RATES FOLLOWS: 12 AM 0.7 UNITS/HR, 2AM .55 UNITS/HR, 8AM .92UNITS/HR, 12PM .92 UNITS/HR, 4PM .95 UNITS/HR, 7PM .95 UNITS/HR, 9PM .95 UNITS/HR.; INSULIN SENSITIVITY FACTOR (ISF) (CORRECTION) 1 UNIT FOR EVERY 43 POINTS HE'S ABOVE HIS TARGET BLOOD SUGAR OF 110 THEN AT 9PM CHANGES TO 1 UNIT FOR 60 POINTS ABOVE HIS TARGET BLOOD SUGAR OF 110; HIS INSULIN TO CARB RATIOS (I:C RATIO) ARE 1 UNIT FOR EVERY 12 ARBS HE EATS (1:12) THEN AT 12PM IT CHANGES TO 1 UNIT FOR EVERY 5.5GMS OF CARBS (1:5.5) HE EATS, AT 4PM CHANGES TO 1:17, AT 7PM CHANGES TO 1:15 THEN AT 9PM CHANGES TO 1:20. HIS TARGET BLOOD SUGAR IS 110. HIS BLOOD SUGAR AT DINNER TONIGHT WAS 210 VIA OUR GLUCOMETER, HIS CGM SHOWED A BG OF 216. HE BOLUSED HIMSELF WITH .95 UNITS FOR CORRECTION BEFORE EATING AND THE PUMP CALCULATED 12.59 UNITS FOR DINNER. PT WAS AN OUT PT AT THE [facility] THIS MORNING FOR A PERMA CATH PLACEMENT. 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 HE SUBSEQUENTLY TESTED + FOR COVID THOUGH REMAINS ASYMPTOMATIC. HE IS SCHEDULED FOR DIALYSIS TOMORROW. HIS WAS AT BEDSIDE THROUGH THE SHIFT. ADMIT COMPLETED.
--- NOTE | 2022-03-05 21:17 | NUR ---
PHYSICIAN COMMUNICATION CONTACTED DR ESPINOSA TO NOTIFY HIM THAT THE PATIENT'S BOOD PRESSURE WAS 208/79 AND ASKED IF HIS HOME BLOOD PRESSURE MEDICATIONS COULD BE STARTED, RELAYED TO DR ESPINOSA WHAT THE MEDS WERE. ALSO ASKED IF THE PATIENT'S TACROLIMUS COULD BE RESTARTED. DR ESPINOSA SAID YES. SEE ORDERS.
--- NOTE | 2022-03-06 02:10 | NUR ---
PT HAS INSULIN PUMP FOR TYPE 1 DIABETES, PT CALLED AROUND 0015 REPORTING A LOW BLOOD SUGAR OF 52. APPLE JUICE WAS GIVEN AND A HALF A TURKEY SANDWHICH. AFTER 15 MINUTES PTS INSULIN PUMP READ THAT THE PTS BLOOD SUGAR WAS 48, A MANUAL BLOOD SUGAR WAS TAKEN WITH THE GLUCOMETER AND A BLOOD SUGAR OF 78 WAS RECORDED. THE PT STATED THAT HE DID NOT FEEL NAUSEOUS, LIGHT HEADED AND OR ANY OTHER SYMPTOMS ASSOCIATED WITH HYPOGLYCEMIA. PT RECALIBRATED HIS INSULIN PUMP TO OUR GLUCOMETER AT THAT TIME. CURRENTLY PTS PUMP REPORTS THAT HIS BLOOD SUGAR IS 129. [facility] HAS A 2030 INSULIN PUMP VERIFICATION FOR 03/05 HOWEVER, INSULIN PUMP SETTINGS WERE VERIFIED UPON ADMISSION WITH DAYSHIFT ADMITTING NURSE.
[2022-03-06 06:26] LABS: Hematocrit 26.8 % (37.0-53.0); Mean Corpuscular HGB 28.4 pg (26.0-34.0); Mean Corpuscular HGB Conc 29.9 g/dL (31.5-36.5); Mean Corpuscular Volume 95 fL (80-100); Mean Platelet Volume 11.3 fL (9.1-12.4); Platelet Count 75 K/mm3 (150-400); RDW Standard Deviation 61.1 fL (35.1-46.3); Red Blood Cell Count 2.82 M/mm3 (4.30-5.90)
[2022-03-06 06:39] LABS: Albumin, Blood 2.6 g/dL (3.4-5.0); Anion Gap 6 mmol/L (6-16); Blood Urea Nitrogen 89 mg/dL (8-24); Bun/Creatinine Ratio 21.8 (12.0-20.0); CO2, Blood 18 mmol/L (21-32); Calcium, Blood 8.2 mg/dL (8.5-10.1); Chloride, Blood 119 mmol/L (98-108); Creatinine, Blood 4.09 mg/dL (0.60-1.20); Glomerular Filtration Rate 15 (60-); Glucose, Blood 104 mg/dL (70-99); Magnesium, Blood 2.2 mg/dL (1.6-2.4); Phosphorus, Blood 4.6 mg/dL (2.5-4.9); Potassium, Blood 5.2 mmol/L (3.5-5.5); Sodium, Blood 143 mmol/L (136-145)
--- NOTE | 2022-03-06 07:28 | NUR ---
SHIFT SUMMARY; REFER TO PREVIOUS NOTE TO REFRENCE PTS BLOOD SUGAR THROUGHOUT THE NIGHT. PT WITH NO MORE EPISODES OF HYPOGLYCEMIA THROUGHOUT THE NIGHT. PTS BLOOD PRESSURE WAS ELEVATED AT THE BEGINNING OF THE SHIFT, ANOTHER RN CONTACTED THE HOSPITALIST TO GET THE HOME B/P MEDS ON BOARDS. THEY WERE EFFCTIVE IN LOWERING HIS BLOOD PRESSURE BUT PT STILL REMAINED HYPERTENSIVE. PT'S CURRENT BLOOD PRESSURE IS ELEVATED AGAIN, 201/87. THIS REMAINS COMPARATIVE TO PATIENTS BASELINE B/P. PATIENT IS TO RECIEVE B/P MED AGAIN THIS AM, WELL PT IS TO HAVE DIALYSIS THIS AM. PT WITH NO OTHER ACUTE MEDICAL CHANGES THROUGHOUT THE NIGHT. PT USED CALL LIGHT APPROPRIATELY. THE PT WAS KIND AND COOPERATIVE WITH CARE, REMAINED ASYMPTOMATIC OF COVID. PT CURRENTLY RESTING IN BED, IN THE ROOM HELPING TO MANAGE PTS INSULIN PUMP FOR HIS TYPE 1 DIABETES.
--- NOTE | 2022-03-06 16:31 | NUR ---
SHIFT SUMMARY PT A&O X 4. VSS. PT'S INSULIN PUMP AND CGM ARE CONTINUING TO WORK WELL. DIALYSIS CATHETER REMAINS INTACT. PT IS AWAITING DIALYSIS THIS AFTERNOON. . PT HAS A RECENT SKIN GRAFT ON HIS L EAR. S/W THE PHYSICIAN'S OFFICE THAT DID THE SURGERY. (DR. BRIAN'S OFFICE [phone] S/W MD'S NURSE FERMÍN). THE EAR REQUIRES VASOLINE ON THE GRAFT TO KEEP IT MOIST. SUTURES ARE ABSORBABLE. PT IS INDEPENDENT FOR RESTROOM USE. PT'S IN ROOM THROUGHOUT THE SHIFT. PT REMAINS IN COVID ISO. APPETITE IS GOOD.
--- NOTE | 2022-03-06 19:38 | NUR ---
INSULIN PUMP DELIVERY TOTALS TOTAL MEALTIME INSULIN DELIVERED VIA PT'S INSULIN PUMP FOR BFAST, LUNCH AND DINNER FOLLLWS: BFAST 10.62 UNITS, LUNCH 13.28 UNITS, DINNER 5.6 UNITS. CONTINUOUS BASAL RATES ARE SPECIFIED IN THE INSULIN ORDER ON THE EMAR. TOTAL BASAL RATE FOR 24 HR PERIOD IS 20.61 UNITS.
--- NOTE | 2022-03-06 20:25 | NUR ---
DIALYSIS NURSE VOICED PROCEDURE COMPLETE FOR THE DAY. SEE DOC FOR AMT OF FLUID REMOVED. NO C/O AT THIS TIME. ISOLATION CONTINUES. CALL LIGHT IN REACH
--- NOTE | 2022-03-06 21:25 | NUR ---
BP ELEVATED - SEE DOCUMENTATION. RECEIVED ANTIHYPERTENSIVE MEDS - SEE MAR FOR DETIAILS
--- NOTE | 2022-03-07 03:16 | NUR ---
REHAB SERVICES AIDE SUMMARY DIALYSIS WSA COMPLETED PER DIALYSIS NURSE AT SHIFT [place]. BP WAS ELEVATED AT HS, MEDICATED WOTH ANTIHYPERTENSIVES, SEE DOC FLOW SHEETS FOR F/U DETAILS. REMAINS ASYMPTOMATIC. COVID PRECAUTIONS CONTINUE. ALERT AND ORIENTED. CHEERFUL AFFECT WHEN CONVERSING WITH STAFF. HAS OWN CLUCOMETER THAT HE MONITORS HIS GLUCOSE LEVSLS WITH, HE CORRELATED IT WITH ACCUCHECK AT HS. 163. PT MONITORS AND ADJUSTS HIS OWN COVERAGE. HAS BEEN RESTING QUIETLY WITH FEW INTERRUPTIONS SINCE HS. CALL LIGHT IN REACH. WILL CONTINUE TO MONITOR.
--- NOTE | 2022-03-07 04:48 | NUR ---
BP REMAINS ELEVATED. MD NOTIFIED AND PRN OF HYDRALAZINE 10 MG PO Q 6PRN ORDERED. MED GIVEN. RACHEL RECHECK BP LATER. ASYMPTOMATIC
[2022-03-07 08:00] LABS: BASOPHILS ABSOLUTE AUTO 0.01 K/mm3 (0.00-0.23); BASOPHILS PERCENT AUTO 0 % (0-2); EOSINOPHILS ABSOLUTE AUTO 0.07 K/mm3 (0.00-0.68); EOSINOPHILS PERCENT AUTO 2 % (0-6); Hematocrit 25.6 % (37.0-53.0); Hemoglobin 7.9 g/dL (13.5-17.5); IMMATURE GRAN ABSOLUTE AUTO 0.01 K/mm3 (0.00-0.10); IMMATURE GRAN PERCENT AUTO 0 % (0-1); LYMPHOCYTES ABSOLUTE AUTO 0.54 K/mm3 (0.84-5.20); LYMPHOCYTES PERCENT AUTO 16 % (21-46); MONOCYTES PERCENT AUTO 14 % (4-13); Mean Corpuscular HGB 28.5 pg (26.0-34.0); Mean Corpuscular HGB Conc 30.9 g/dL (31.5-36.5); Mean Corpuscular Volume 92 fL (80-100); Mean Platelet Volume 11.7 fL (9.1-12.4); NEUTROPHILS ABSOLUTE AUTO 2.35 K/mm3 (1.96-9.15); NEUTROPHILS PERCENT AUTO 68 % (41-73); Platelet Count 68 K/mm3 (150-400); RDW Coefficient Variation 17.9 % (11.7-14.2); RDW Standard Deviation 59.8 fL (35.1-46.3); Red Blood Cell Count 2.77 M/mm3 (4.30-5.90); White Blood Cell Count 3.48 K/mm3 (4.00-11.30)
[2022-03-07 08:10] LABS: HBSAG SCREEN Negative (Negative); HCV AB <0.1 (0.0-0.9); HEP A AB, IGM Negative (Negative); HEP B CORE AB, IGM Negative (Negative)
[2022-03-07 08:24] LABS: Albumin, Blood 2.6 g/dL (3.4-5.0); Albumin/Globulin Ratio 0.9 (0.8-1.8); Bilirubin, Total 0.4 mg/dL (0.1-1.0); Bun/Creatinine Ratio 15.5 (12.0-20.0); Calcium, Blood 8.4 mg/dL (8.5-10.1); Creatinine, Blood 3.29 mg/dL (0.60-1.20); Globulin, Blood 2.8 g/dL (2.2-4.0); Potassium, Blood 4.3 mmol/L (3.5-5.5); Total Protein, Blood 5.4 g/dL (6.4-8.2)
--- NOTE | 2022-03-07 08:55 | NUR ---
CBG 168 AT 0850 PT OK TO GIVE OWN INSULIN VIA PUMP PER NOC RN. PT REPORTS SELF ADMINISTERED 13.9 UNITS NOW
--- NOTE | 2022-03-07 10:27 | NUR ---
DIALYSIS IN ROOM AT ABOUT 0915
--- NOTE | 2022-03-07 14:12 | NUR ---
SPOKE WITH PT FOR 20 MINUTES OUTSIDE PT ROOM CONCERNING DIET ORDER, AND DIETARY CALLED. SEE NEW ORDER FOR MEAL TRAYS. CALL MADE TO DR. MALONEY AT THIS TIME PER PT REQUEST TO SWITCH ADMINISTRATION TIME OF [facility] TO 0600.
--- NOTE | 2022-03-07 14:18 | NUR ---
PT CBG 200 AT LUNCH. PER PT , PT GIVEN 9.6 UNITS OF INSULIN VIA PUMP AT 1231
[2022-03-07] MEDS ORDERED: PROGRAF PO (16:43)
--- NOTE | 2022-03-07 17:10 | NUR ---
PROGRAF: SPENT 20 MINUTES IN ROOM SPEAKING WITH PT . SHE REPORTS THAT PT PROGRAF DOSE IS INCORRECT. MED REC EDITED. PER DR. MALONEY OK TO ORDER HOME DOSES. SEE EMAR FOR NEW ORDERS.
--- NOTE | 2022-03-07 18:22 | NUR ---
SUMMARY: PT A/O, VSS. HAD DIALYSIS TODAY, SEE NOTES. PT HAD NO COMPLAINTS. INDEP IN ROOM, DENIES PAIN. PT CONTINUES TO ADMINISTER OWN INSULIN WITH IMPLANTED PUMP PER ORDERS. MANAGES WELL. NEURO CHECKS STABLE. NO SAFETY CONCERNS AT THIS TIME.
--- NOTE | 2022-03-08 04:20 | NUR ---
PT REPORTED CBG WAS 75 PER INSERTED INSULING PUMP AND GLUCOMETER. ORANGE JUICE PROVIDED AND PLAN TO REEVALUATE FOR EFFECT IN 30 MINS.
[2022-03-08 05:37] LABS: Hematocrit 27.3 % (37.0-53.0); Hemoglobin 8.2 g/dL (13.5-17.5)
[2022-03-08 06:07] LABS: Albumin, Blood 2.7 g/dL (3.4-5.0); Anion Gap 8 mmol/L (6-16); Blood Urea Nitrogen 58 mg/dL (8-24); Bun/Creatinine Ratio 15.7 (12.0-20.0); CO2, Blood 28 mmol/L (21-32); Calcium, Blood 8.7 mg/dL (8.5-10.1); Chloride, Blood 107 mmol/L (98-108); Glomerular Filtration Rate 17 (60-); Glucose, Blood 163 mg/dL (70-99); Magnesium, Blood 2.2 mg/dL (1.6-2.4); Phosphorus, Blood 4.4 mg/dL (2.5-4.9); Potassium, Blood 4.7 mmol/L (3.5-5.5); Sodium, Blood 143 mmol/L (136-145)
--- NOTE | 2022-03-08 06:17 | NUR ---
CBG IMPROVED TO 145 THIS AM AFTER RECIEVING ORANGE JUICE.
--- NOTE | 2022-03-08 11:42 | NUR ---
MORNING INSULIN PATIENT CBG WAS 127. PATIENT ATE BREAKFAST, COUNTED CARBS, PUMP GAVE 10.86.
--- NOTE | 2022-03-08 18:00 | NUR ---
INSULIN PUMP PER REPORT, PATIENT RECEIVED 11.42 UNIT BOLUS WITH SUPPER AT 1749 VIA INSULIN PUMP MANAGED BY PATIENT AND HIS .
--- NOTE | 2022-03-08 18:39 | NUR ---
SHIFT SUMMARY ASSUMED CARE AT 1545. NO ACUTE CHANGES SINCE ASSUMING CARE. PATIENT IS ALERT, ORIENTED AND ABLE TO MAKE HIS NEEDS KNOWN. HE REMAINS IN COVID ISOLATION. RECEIVED TELEPHONE ORDER TO HOLD CLONIDINE IF SBP IS LESS THAN 140mmHg. ANTICIPATE PATIENT TO DC HOME AFTER DIALYSIS TOMORROW 03/09. BED LOW AN DLOCKED, CALL LIGHT WITHIN REACH. [facility]NTIL REPORT GIVEN TO ONCOMING RN.
--- NOTE | 2022-03-08 21:00 | NUR ---
HS CBG WAS 139 AND PT REPORTED NO INSULIN COVERAGE REQUIRED AT THIS TIME. IMPLANTED INSULIN PUMP IS MANAGED BY PATIENT W/CONTINUOUS BASAL RATES INFUSING PER EMAR.
--- NOTE | 2022-03-09 01:25 | NUR ---
THIS RN HEARD PT'S GLUCOMETER ALARMING AND AWOKE PT TO DISCOVER CBG WAS DOWN TO 70. APPLE JUICE PROVIDED UPON REQUEST. WILL REEVALUATE MOMENTARILY.
--- NOTE | 2022-03-09 02:45 | NUR ---
CBG RECHECKED AND FOUND TO HAVE IMPROVED SLIGHTLY TO 84 AFTER RECIEVING APPLE JUICE. ADDITIONAL JUICE WAS PROVIDED W/A TURKEY SANDWICH. PLAN TO CONTINUE MONITORING FOR EFFECT. PT REMAINS ASYMPTOMATIC OF HYPOGLYCEMIA.
--- NOTE | 2022-03-09 03:59 | NUR ---
patients CBG was 79, was given apple juice, CBG was checked and had went up to 84, RN had me give him another apple juice and 1/2 a turkey sandwich.
--- NOTE | 2022-03-09 05:44 | NUR ---
CBG IMPROVED TO 148 THIS AM.
--- NOTE | 2022-03-09 05:45 | NUR ---
SUMMARY: PT A/OX4, IS INDEPENDENT IN ROOM AND CALLS APPROPRIATELY TO SPECIFY NEEDS. HE REMAINS ISOLATED FOR COVID BUT IS ASYMPTOMATIC OF DISTRESS. PT HAS A DIALYSIS PORT PRESENT/INTACT TO R.CW W/MEDIPORT LOCATED JUST ABOVE IT AND A FISTULA TO HIS L.ARM. HE ALSO HAS AN IMPLANTED INSULIN PUMP W/GLUCOMETER THAT HE MANAGES HIMSELF W/A VARRYING CONTINUOUS BASAL RATE INFUSING PER EMAR. HS CBG WAS 139 AND NO COVERAGE WAS REQUIRED. CBG DID DROP TO 70 AT 0120 AND APPLE JUICE + SNACKS WERE PROVIDED. CBG SLOWLY TRENDED UPWARD TO 148 THIS AM AND HE REMAINED ASYMPTOMATIC EVEN WHEN HYPOGYLCEMIC. NO ACUTE CHANGES. VSS/AFEBRILE AND BP IS MUCH IMPROVED W/ADDITION OF BID CLONIDINE. PLAN IS FOR DIALYSIS THIS AM THEN D/C W/PAUL CHAIR INTENDED FOR SATURDAY. WCTM AND REPORT TO DAY RN.
[2022-03-09 06:04] LABS: Hematocrit 24.7 % (37.0-53.0); Hemoglobin 7.7 g/dL (13.5-17.5)
[2022-03-09 06:23] LABS: Albumin, Blood 2.5 g/dL (3.4-5.0); Anion Gap 6 mmol/L (6-16); Blood Urea Nitrogen 74 mg/dL (8-24); Bun/Creatinine Ratio 16.3 (12.0-20.0); CO2, Blood 28 mmol/L (21-32); Calcium, Blood 8.7 mg/dL (8.5-10.1); Chloride, Blood 107 mmol/L (98-108); Creatinine, Blood 4.55 mg/dL (0.60-1.20); Glomerular Filtration Rate 13 (60-); Glucose, Blood 177 mg/dL (70-99); Magnesium, Blood 2.4 mg/dL (1.6-2.4); Phosphorus, Blood 5.6 mg/dL (2.5-4.9); Potassium, Blood 5.3 mmol/L (3.5-5.5); Sodium, Blood 141 mmol/L (136-145)
[2022-03-09] MEDS ORDERED: CATAPRES0.1 MG PO (12:01)
--- NOTE | 2022-03-09 14:54 | NUR ---
PATIENT WAS DISCHARGED TO HOME WITH A RIDE FROM HIS WHO WAS PRESENT FOR DISCHARGE INSTRUCTIONS INCLUDING PATIENT EDUCATION, MEDICATIONS AND FOLLOW UP APPT. IV WAS REMOVED PRIOR TO DISCHARGE. PT TRANSPORTED OUT IN .
== END 2022-03-09 14:47 | disposition home or self-care (01) | DRG 673 ==
LOC: MHTC 07:04 → MEDS 12:10 → MHTC 12:27 → MEDS 12:29
PROVIDERS: Family Medicine; Internal Medicine Nephrology; ADMIT Internal Medicine
PROC: 0JH63XZ Insertion of Tunneled Vascular Access Device into Chest Subcutaneous Tissue and Fascia, Percutaneous Approach (ICD-10-PCS; principal; 2022-03-05)
PROC: 02HV33Z Insertion of Infusion Device into Superior Vena Cava, Percutaneous Approach (ICD-10-PCS; 2022-03-05)
PROC: B518ZZA Fluoroscopy of Superior Vena Cava, Guidance (ICD-10-PCS; 2022-03-05)
PROC: B548ZZA Ultrasonography of Superior Vena Cava, Guidance (ICD-10-PCS; 2022-03-05)
PROC: 5A1D70Z Performance of Urinary Filtration, Intermittent, Less than 6 Hours Per Day (ICD-10-PCS; 2022-03-05)
PROC: 8E0ZXY6 Isolation (ICD-10-PCS; 2022-03-05)
DX: T86.12 Kidney transplant failure (principal); N18.6 End stage renal disease; U07.1 COVID-19; I12.0 Hypertensive chronic kidney disease with stage 5 chronic kidney disease or end stage renal disease; D84.9 Immunodeficiency, unspecified; Z94.83 Pancreas transplant status; E87.20 Acidosis, unspecified; C95.90 Leukemia, unspecified not having achieved remission; N25.81 Secondary hyperparathyroidism of renal origin; N17.9 Acute kidney failure, unspecified; E11.22 Type 2 diabetes mellitus with diabetic chronic kidney disease; I25.10 Atherosclerotic heart disease of native coronary artery without angina pectoris; E11.51 Type 2 diabetes mellitus with diabetic peripheral angiopathy without gangrene; E87.70 Fluid overload, unspecified; D63.1 Anemia in chronic kidney disease; K21.9 Gastro-esophageal reflux disease without esophagitis; E87.5 Hyperkalemia; E78.00 Pure hypercholesterolemia, unspecified; E11.42 Type 2 diabetes mellitus with diabetic polyneuropathy; M81.0 Age-related osteoporosis without current pathological fracture; H70.90 Unspecified mastoiditis, unspecified ear; I95.1 Orthostatic hypotension; M54.9 Dorsalgia, unspecified; G89.29 Other chronic pain; C44.92 Squamous cell carcinoma of skin, unspecified; E11.65 Type 2 diabetes mellitus with hyperglycemia; K31.84 Gastroparesis; Z96.41 Presence of insulin pump (external) (internal); Y83.0 Surgical operation with transplant of whole organ as the cause of abnormal reaction of the patient, or of later complication, without mention of misadventure at the time of the procedure; Z98.890 Other specified postprocedural states; Z86.73 Personal history of transient ischemic attack (TIA), and cerebral infarction without residual deficits; Z88.5 Allergy status to narcotic agent; Z88.8 Allergy status to other drugs, medicaments and biological substances; Z79.899 Other long term (current) drug therapy; Z89.021 Acquired absence of right finger(s); Z98.52 Vasectomy status; Z95.820 Peripheral vascular angioplasty status with implants and grafts; Z95.0 Presence of cardiac pacemaker; Z87.891 Personal history of nicotine dependence; Z79.02 Long term (current) use of antithrombotics/antiplatelets; Z79.82 Long term (current) use of aspirin; Z79.891 Long term (current) use of opiate analgesic; Z79.52 Long term (current) use of systemic steroids
CPT/HCPCS: 36415; 36558; 76937; 77001; 80053; 80069; 80074; 82947; 83735; 85014; 85018; 85025; 85027; 86317; 99152; 99153; A9270; C1750; C1769; C1894; J0881; J1644; J2250; J3010; J7040; J7050; J7507; J7512

== ENCOUNTER 2022-03-19 01:29 | Day surgery (SDC) | payer MEDICARE ==
--- NOTE | 2022-03-19 12:12 | NUR ---
PT DID NOT SHOW FOR HIS APPOINTMENT IN THE [facility] TODAY.
[2022-03-19] MEDS ORDERED: CATAPRES0.1 MG PO (14:21)
[2022-03-19 14:30] LABS: Hematocrit 26.4 % (37.0-53.0); Hemoglobin 8.4 g/dL (13.5-17.5); Mean Corpuscular HGB 28.4 pg (26.0-34.0); Mean Corpuscular HGB Conc 31.8 g/dL (31.5-36.5); Mean Corpuscular Volume 89 fL (80-100); Mean Platelet Volume 11.7 fL (9.1-12.4); Platelet Count 70 K/mm3 (150-400); RDW Coefficient Variation 16.3 % (11.7-14.2); RDW Standard Deviation 54.1 fL (35.1-46.3); Red Blood Cell Count 2.96 M/mm3 (4.30-5.90); White Blood Cell Count 3.28 K/mm3 (4.00-11.30)
[2022-03-19 14:42] LABS: International Normalized Ratio 1.02; Prothrombin Time Results 10.7 Sec (9.7-11.5)
[2022-03-19 14:46] LABS: Bun/Creatinine Ratio 15.2 (12.0-20.0); Calcium, Blood 8.4 mg/dL (8.5-10.1); Creatinine, Blood 3.49 mg/dL (0.60-1.20); Potassium, Blood 4.3 mmol/L (3.5-5.5)
[2022-03-19 14:51] LABS: BASOPHILS PERCENT MAN 0 % (0-2); EOSINOPHILS PERCENT MAN 0 % (0-6); LYMPHOCYTES ABSOLUTE MAN 0.72 K/mm3 (0.84-5.20); LYMPHOCYTES PERCENT MAN 22 % (21-46); MONOCYTES ABSOLUTE MAN 0.13 K/mm3 (0.16-1.47); MONOCYTES PERCENT MAN 4 % (4-13); NEUTROPHILS ABSOLUTE MAN 2.42 K/mm3 (1.96-9.15); SEG NEUTROPHILS PERCENT MAN 74 % (41-73); TOTAL CELLS COUNTED 100
[2022-03-20] MEDS ORDERED: HUMALOG KW100 UNIT/1 (09:30)
== END 2022-03-19 14:12 | disposition home or self-care (01) ==
LOC: ATC 01:29
PROVIDERS: Radiology Diagnostic Radiology
DX: N18.6 End stage renal disease (principal)
CPT/HCPCS: 36591; 80048; 85007; 85027; 85610; J1642

== ENCOUNTER 2022-03-20 08:52 | Day surgery (SDC) | payer MEDICARE ==
[~2022-03-20] VITALS: Ht 185.4 cm; Wt 82.0 kg
[2022-03-20] MEDS ORDERED: HUMALOG KW100 UNIT/1 (09:30)
--- NOTE | 2022-03-20 14:10 | NUR ---
PT AND S/O VERBALIZES UNDERSTANDING WRITTEN INSTRUCTIONS. DENIES QUESTIONS. VSS. NADN. PT PD CATHETER SITE REMAINS CLEAR. NO BLEEDING NOTED. PT IV DC'D. CATH INTACT. PRESSURE DSG APPLIED. DC TO HOME VIA WC
== END 2022-03-20 14:15 | disposition home or self-care (01) ==
LOC: MHTC 08:52
DX: N18.6 End stage renal disease (principal)
CPT/HCPCS: 49418; 76937; 99152; 99153; C1750; C1769; C1887; C1894; J1644; J2250; J3010; J7030; J7040; Q9967

== ENCOUNTER 2022-05-01 09:49 | Day surgery (SDC) | payer MEDICARE ==
[~2022-05-01 09:49] MED LIST changes: +HUMALOG KW100 UNIT/1
[2022-05-01 12:38] LABS: Hemoglobin 8.5 g/dL (13.5-17.5); Mean Corpuscular HGB 27.7 pg (26.0-34.0); Mean Corpuscular HGB Conc 30.4 g/dL (31.5-36.5); Mean Corpuscular Volume 91 fL (80-100); Mean Platelet Volume 11.1 fL (9.1-12.4); Platelet Count 152 K/mm3 (150-400); RDW Coefficient Variation 17.9 % (11.7-14.2); RDW Standard Deviation 59.9 fL (35.1-46.3); Red Blood Cell Count 3.07 M/mm3 (4.30-5.90); White Blood Cell Count 6.02 K/mm3 (4.00-11.30)
[2022-05-01 12:55] LABS: International Normalized Ratio 1.07; Prothrombin Time Results 11.2 Sec (9.7-11.5)
[2022-05-01 12:59] LABS: Albumin, Blood 2.9 g/dL (3.4-5.0); Albumin/Globulin Ratio 0.8 (0.8-1.8); Bilirubin, Total 0.3 mg/dL (0.1-1.0); Calcium, Blood 8.7 mg/dL (8.5-10.1); Creatinine, Blood 5.42 mg/dL (0.60-1.20); Globulin, Blood 3.7 g/dL (2.2-4.0); Total Protein, Blood 6.6 g/dL (6.4-8.2)
[2022-05-01 13:02] LABS: CHOL/HDL RATIO 1.7; Cholesterol 95 mg/dL (50-200); HDL Cholesterol 56 mg/dL (>39); LDL/HDL RATIO 0.5; Low Density Lipoprotein Chol 29 mg/dL (0-110); Triglycerides 52 mg/dL (30-160); Very Low Density Lipoprot Chol 10 mg/dL (6-32)
[2022-05-01 13:23] LABS: BASOPHILS ABSOLUTE MAN 0.06 K/mm3 (0.00-0.23); BASOPHILS PERCENT MAN 1 % (0-2); EOSINOPHILS ABSOLUTE MAN 0.18 K/mm3 (0.00-0.68); EOSINOPHILS PERCENT MAN 3 % (0-6); LYMPHOCYTES PERCENT MAN 5 % (21-46); MONOCYTES ABSOLUTE MAN 0.24 K/mm3 (0.16-1.47); MONOCYTES PERCENT MAN 4 % (4-13); NEUTROPHILS ABSOLUTE MAN 5.23 K/mm3 (1.96-9.15); SEG NEUTROPHILS PERCENT MAN 87 % (41-73); TOTAL CELLS COUNTED 100
[2022-05-01] MEDS ORDERED: HYDR10 PO (13:47)
[2022-05-01] MEDS ORDERED: EFUDEX40 GM TOP (13:47)
[2022-05-01] MEDS ORDERED: Norco 10-325 T1 EACH PO (13:49)
[2022-05-01] MEDS ORDERED: MGO PO (13:51)
[2022-05-02] MEDS ORDERED: Rena-Vite Tabl0.8 MG PO (11:25)
[2022-05-02] MEDS ORDERED: CALCIUM ACETAT667 MG (11:25)
== END 2022-05-01 12:15 | disposition home or self-care (01) ==
LOC: ATC 09:49
PROVIDERS: Internal Medicine Endocrinology, Diabetes & Metabolism; Physician Assistant
DX: T85.691A Other mechanical complication of intraperitoneal dialysis catheter, initial encounter (principal); N18.6 End stage renal disease; Z94.0 Kidney transplant status; I12.0 Hypertensive chronic kidney disease with stage 5 chronic kidney disease or end stage renal disease; K21.9 Gastro-esophageal reflux disease without esophagitis; E03.9 Hypothyroidism, unspecified; Z87.891 Personal history of nicotine dependence; Z88.5 Allergy status to narcotic agent
CPT/HCPCS: 36591; 80053; 80061; 83036; 84443; 85007; 85027; 85610; J1642

== ENCOUNTER → 2022-05-08 | Outpatient (CLI) | payer MEDICARE ==
[~2022-05-08] MED LIST changes: +CALCIUM ACETAT667 MG; +MGO PO; +Rena-Vite Tabl0.8 MG PO
== END | disposition home or self-care (01) ==
LOC: LAB SHORT 12:00
DX: L08.9 Local infection of the skin and subcutaneous tissue, unspecified (principal); D22.61 Melanocytic nevi of right upper limb, including shoulder; D22.62 Melanocytic nevi of left upper limb, including shoulder; D22.39 Melanocytic nevi of other parts of face; D22.5 Melanocytic nevi of trunk; L82.0 Inflamed seborrheic keratosis; L29.8 Other pruritus; L57.0 Actinic keratosis; L81.4 Other melanin hyperpigmentation; L82.1 Other seborrheic keratosis
CPT/HCPCS: 87070; 87205

== ENCOUNTER → 2022-05-10 | Outpatient (CLI) | payer MEDICARE ==
[2022-05-10 20:59] LABS: Automated BF RBC Count 0.013 M/mm3 (0-0)
[2022-05-10 21:59] LABS: Total Cell Count, Body Fluid 100
[2022-05-10 22:01] LABS: Body Fluid WBC Count 3080 /mm3 (0-999); RBC Count, Body Fluid 13000 /mm3 (0-0)
[2022-05-10 22:04] LABS: Appearance, Body Fluid Hazy (Clear); Color, Body Fluid Amber (None-Yellow)
== END | disposition home or self-care (01) ==
LOC: LAB DAV 18:27
PROVIDERS: Internal Medicine Nephrology
DX: N18.6 End stage renal disease (principal); D63.1 Anemia in chronic kidney disease
CPT/HCPCS: 87070; 87205; 89051

== ENCOUNTER 2022-06-28 11:20 | Day surgery (SDC) | payer MEDICARE | END 2022-06-28 11:48 | disposition home or self-care (01) | LOC: ATC 11:20 | DX: I12.9 Hypertensive chronic kidney disease with stage 1 through stage 4 chronic kidney disease, or unspecified chronic kidney disease (principal); N18.4 Chronic kidney disease, stage 4 (severe); D63.1 Anemia in chronic kidney disease; E11.21 Type 2 diabetes mellitus with diabetic nephropathy; E86.9 Volume depletion, unspecified; R80.9 Proteinuria, unspecified; E78.00 Pure hypercholesterolemia, unspecified; E55.9 Vitamin D deficiency, unspecified | CPT/HCPCS: 96523; J1642 ==

== ENCOUNTER 2022-07-30 01:00 | Day surgery (SDC) | payer MEDICARE | END 2022-07-30 11:23 | disposition home or self-care (01) | LOC: ATC 01:00 | DX: E29.1 Testicular hypofunction (principal); Z94.0 Kidney transplant status; I12.0 Hypertensive chronic kidney disease with stage 5 chronic kidney disease or end stage renal disease; N18.6 End stage renal disease; E11.22 Type 2 diabetes mellitus with diabetic chronic kidney disease | CPT/HCPCS: 36591; 80197; J1642 ==

== ENCOUNTER 2022-08-29 02:57 | Day surgery (SDC) | payer MEDICARE ==
[2022-08-29 11:00] VITALS: BP 151/74
== END 2022-08-29 11:00 | disposition home or self-care (01) ==
LOC: ATC 02:57
DX: Z45.2 Encounter for adjustment and management of vascular access device (principal); I12.9 Hypertensive chronic kidney disease with stage 1 through stage 4 chronic kidney disease, or unspecified chronic kidney disease; E11.22 Type 2 diabetes mellitus with diabetic chronic kidney disease; N18.4 Chronic kidney disease, stage 4 (severe); D63.1 Anemia in chronic kidney disease; N25.81 Secondary hyperparathyroidism of renal origin; E11.21 Type 2 diabetes mellitus with diabetic nephropathy; Z88.5 Allergy status to narcotic agent; Z88.4 Allergy status to anesthetic agent; Z79.01 Long term (current) use of anticoagulants; Z79.82 Long term (current) use of aspirin; Z79.899 Other long term (current) drug therapy
CPT/HCPCS: 96523; J1642

== ENCOUNTER 2022-09-28 04:05 | Day surgery (SDC) | payer MEDICARE ==
[2022-09-28 11:29] VITALS: BP 114/59
== END 2022-09-28 11:18 | disposition home or self-care (01) ==
LOC: ATC 04:05
DX: Z45.2 Encounter for adjustment and management of vascular access device (principal); I12.9 Hypertensive chronic kidney disease with stage 1 through stage 4 chronic kidney disease, or unspecified chronic kidney disease; D63.1 Anemia in chronic kidney disease; N18.4 Chronic kidney disease, stage 4 (severe); N25.81 Secondary hyperparathyroidism of renal origin; E11.22 Type 2 diabetes mellitus with diabetic chronic kidney disease
CPT/HCPCS: 96523; J1642

== ENCOUNTER 2022-10-29 01:15 | Day surgery (SDC) | payer MEDICARE ==
[2022-10-29 08:35] VITALS: BP 153/59
== END 2022-10-29 08:40 | disposition home or self-care (01) ==
LOC: ATC 01:15
DX: E10.649 Type 1 diabetes mellitus with hypoglycemia without coma (principal); E10.22 Type 1 diabetes mellitus with diabetic chronic kidney disease; I12.9 Hypertensive chronic kidney disease with stage 1 through stage 4 chronic kidney disease, or unspecified chronic kidney disease; N18.4 Chronic kidney disease, stage 4 (severe); D63.1 Anemia in chronic kidney disease; N25.81 Secondary hyperparathyroidism of renal origin; Z45.2 Encounter for adjustment and management of vascular access device; Z88.5 Allergy status to narcotic agent
CPT/HCPCS: 36591; 80197; 83036; J1642

== ENCOUNTER 2022-11-29 02:08 | Day surgery (SDC) | payer MEDICARE ==
[2022-11-29 11:49] VITALS: BP 123/78
== END 2022-11-29 11:48 | disposition home or self-care (01) ==
LOC: ATC 02:08
DX: Z45.2 Encounter for adjustment and management of vascular access device (principal); I73.9 Peripheral vascular disease, unspecified
CPT/HCPCS: 93922; 96523; J1642

== ENCOUNTER 2023-01-02 00:37 | Day surgery (SDC) | payer MEDICARE ==
[2023-01-02 11:23] VITALS: BP 117/64
== END 2023-01-02 11:31 | disposition home or self-care (01) ==
LOC: ATC 00:37
DX: Z45.2 Encounter for adjustment and management of vascular access device (principal); E11.22 Type 2 diabetes mellitus with diabetic chronic kidney disease; I12.9 Hypertensive chronic kidney disease with stage 1 through stage 4 chronic kidney disease, or unspecified chronic kidney disease; N18.4 Chronic kidney disease, stage 4 (severe); E86.9 Volume depletion, unspecified; E87.5 Hyperkalemia; Z88.5 Allergy status to narcotic agent
CPT/HCPCS: 96523; J1642

== ENCOUNTER 2023-02-14 13:18 | Emergency (ER) | payer MEDICARE ==
[~2023-02-14] VITALS: Ht 185.4 cm; Wt 81.7 kg
[2023-02-14] MEDS ORDERED: ATOR40TA PO (14:49)
[2023-02-14 15:30] VITALS: BP 107/57
[2023-02-14 16:10] LABS: BASOPHILS ABSOLUTE AUTO 0.01 K/mm3 (0.00-0.23); BASOPHILS PERCENT AUTO 0 % (0-2); EOSINOPHILS ABSOLUTE AUTO 0.24 K/mm3 (0.00-0.68); EOSINOPHILS PERCENT AUTO 4 % (0-6); Hematocrit 35.9 % (37.0-53.0); IMMATURE GRAN ABSOLUTE AUTO 0.02 K/mm3 (0.00-0.10); IMMATURE GRAN PERCENT AUTO 0 % (0-1); LYMPHOCYTES PERCENT AUTO 12 % (21-46); MONOCYTES ABSOLUTE AUTO 0.71 K/mm3 (0.16-1.47); MONOCYTES PERCENT AUTO 11 % (4-13); Mean Corpuscular HGB 32.9 pg (26.0-34.0); Mean Corpuscular HGB Conc 33.4 g/dL (31.5-36.5); Mean Corpuscular Volume 98 fL (80-100); Mean Platelet Volume 10.2 fL (9.1-12.4); NEUTROPHILS ABSOLUTE AUTO 4.95 K/mm3 (1.96-9.15); NEUTROPHILS PERCENT AUTO 74 % (41-73); Platelet Count 148 K/mm3 (150-400); RDW Coefficient Variation 12.7 % (11.7-14.2); Red Blood Cell Count 3.65 M/mm3 (4.30-5.90); White Blood Cell Count 6.73 K/mm3 (4.00-11.30)
[2023-02-14 16:29] LABS: Albumin, Blood 2.4 g/dL (3.4-5.0); Albumin/Globulin Ratio 0.6 (0.8-1.8); Bilirubin, Total 0.3 mg/dL (0.1-1.0); Bun/Creatinine Ratio 17.4 (12.0-20.0); Calcium, Blood 9.5 mg/dL (8.5-10.1); Creatinine, Blood 4.76 mg/dL (0.60-1.20); Globulin, Blood 4.3 g/dL (2.2-4.0); Potassium, Blood 4.8 mmol/L (3.5-5.5); Total Protein, Blood 6.7 g/dL (6.4-8.2)
== END 2023-02-14 17:12 | disposition home or self-care (01) ==
LOC: ER 13:18
PROVIDERS: Emergency Medicine
DX: M54.2 Cervicalgia (principal); N18.6 End stage renal disease; Z99.2 Dependence on renal dialysis; Z88.5 Allergy status to narcotic agent; Z88.6 Allergy status to analgesic agent; Z91.018 Allergy to other foods; Z79.899 Other long term (current) drug therapy; Z79.82 Long term (current) use of aspirin; Z79.52 Long term (current) use of systemic steroids; Z79.4 Long term (current) use of insulin; E78.5 Hyperlipidemia, unspecified; D64.9 Anemia, unspecified; I12.0 Hypertensive chronic kidney disease with stage 5 chronic kidney disease or end stage renal disease; K21.9 Gastro-esophageal reflux disease without esophagitis; Z87.891 Personal history of nicotine dependence
CPT/HCPCS: 80053; 85025; 99283; A9270

== ENCOUNTER 2023-03-01 04:34 | Day surgery (SDC) | payer MEDICARE ==
[~2023-03-01 04:34] MED LIST changes: +ATOR40TA PO; -CALCIUM ACETAT667 MG; +CALCIUM ACETAT667 MG PO
[2023-03-01 11:26] VITALS: BP 135/75
[2023-03-01] MEDS ORDERED: DIGEST ADV LAC PO (12:14)
[2023-03-01] MEDS ORDERED: Rena-Vite Tabl0.8 MG PO (12:15)
[2023-03-01] MEDS ORDERED: FISH OIL 1,0001 EA10 PO (12:15)
[2023-03-01] MEDS ORDERED: Calcium Carbon500 MG PO (12:16)
== END 2023-03-01 11:34 | disposition home or self-care (01) ==
LOC: ATC 04:34
DX: Z45.2 Encounter for adjustment and management of vascular access device (principal); D64.9 Anemia, unspecified; Z88.5 Allergy status to narcotic agent; Z88.4 Allergy status to anesthetic agent; Z79.82 Long term (current) use of aspirin; Z79.899 Other long term (current) drug therapy
CPT/HCPCS: 96523; J1642

== ENCOUNTER 2023-04-01 04:08 | Day surgery (SDC) | payer MEDICARE ==
[~2023-04-01 04:08] MED LIST changes: +Calcium Carbon500 MG PO; +DIGEST ADV LAC PO; +FISH OIL 1,0001 EA10 PO
[2023-04-01 11:22] VITALS: BP 109/50
[2023-04-01 12:01] LABS: Glucose, Blood 230 mg/dL (70-99); PSA, Free 0.818 ng/mL
[2023-04-03 10:10] LABS: SERUM, C-PEPTIDE <0.1 ng/mL (0.5-3.3)
== END 2023-04-01 11:27 | disposition home or self-care (01) ==
LOC: ATC 04:08
PROVIDERS: Internal Medicine Endocrinology, Diabetes & Metabolism; Nurse Practitioner Family
DX: Z45.2 Encounter for adjustment and management of vascular access device (principal)
CPT/HCPCS: 36591; 82947; 84153; 84154; 84681; J1642

== ENCOUNTER 2023-04-08 03:31 | Day surgery (SDC) | payer MEDICARE ==
[2023-04-08 15:18] VITALS: BP 155/63
[2023-04-08 15:55] LABS: Hematocrit 30.1 % (37.0-53.0); Mean Corpuscular HGB 33.2 pg (26.0-34.0); Mean Corpuscular HGB Conc 33.2 g/dL (31.5-36.5); Mean Corpuscular Volume 100 fL (80-100); Mean Platelet Volume 10.1 fL (9.1-12.4); Platelet Count 144 K/mm3 (150-400); RDW Coefficient Variation 13.7 % (11.7-14.2); RDW Standard Deviation 50.1 fL (35.1-46.3); Red Blood Cell Count 3.01 M/mm3 (4.30-5.90); White Blood Cell Count 6.51 K/mm3 (4.00-11.30)
[2023-04-08 16:12] LABS: International Normalized Ratio 0.99; Prothrombin Time Results 10.4 Sec (9.7-11.5)
[2023-04-08 16:36] LABS: BASOPHILS PERCENT MAN 0 % (0-2); EOSINOPHILS ABSOLUTE MAN 0.26 K/mm3 (0.00-0.68); EOSINOPHILS PERCENT MAN 4 % (0-6); LYMPHOCYTES ABSOLUTE MAN 1.04 K/mm3 (0.84-5.20); LYMPHOCYTES PERCENT MAN 16 % (21-46); MONOCYTES ABSOLUTE MAN 0.26 K/mm3 (0.16-1.47); MONOCYTES PERCENT MAN 4 % (4-13); NEUTROPHILS ABSOLUTE MAN 4.94 K/mm3 (1.96-9.15); SEG NEUTROPHILS PERCENT MAN 76 % (41-73); TOTAL CELLS COUNTED 100
[2023-04-08 17:04] LABS: Bun/Creatinine Ratio 21.5 (12.0-20.0); Calcium, Blood 9.4 mg/dL (8.5-10.1); Creatinine, Blood 4.98 mg/dL (0.60-1.20); Potassium, Blood 4.8 mmol/L (3.5-5.5)
== END 2023-04-08 15:25 | disposition home or self-care (01) ==
LOC: ATC 03:31
PROVIDERS: Radiology Diagnostic Radiology
DX: I70.223 Atherosclerosis of native arteries of extremities with rest pain, bilateral legs (principal); I70.213 Atherosclerosis of native arteries of extremities with intermittent claudication, bilateral legs
CPT/HCPCS: 36591; 80048; 85007; 85027; 85610; J1642

== ENCOUNTER 2023-04-09 11:01 | Day surgery (SDC) | payer MEDICARE ==
[~2023-04-09] VITALS: Ht 185.4 cm; Wt 79.0 kg
[2023-04-09 12:15] VITALS: BP 142/65
--- NOTE | 2023-04-09 16:55 | NUR ---
patient returned to recovery room awake and responds appropriately
[2023-04-09 17:00] VITALS: BP 133/63
--- NOTE | 2023-04-09 17:06 | NUR ---
Dr Chaparro here to discuss procedure and future plan with patient and
--- NOTE | 2023-04-09 17:20 | NUR ---
Dr Beck in to ssess oozing from site
--- NOTE | 2023-04-09 17:23 | NUR ---
SKIN OOZING UNDER DRESSING NO SWELLING. KAIDEN RT CHECKED AND CONFIRMED THAT IT IS SKIN OOZING. 2# SAND BAG PLACED
--- NOTE | 2023-04-09 17:39 | NUR ---
RIGHT GROIN UNCHANGED. OOZING HAS STOPPED, NO HEMATOMA
--- NOTE | 2023-04-09 17:45 | NUR ---
reviewed site with . no hematoma, oozing has stopped
--- NOTE | 2023-04-09 18:40 | NUR ---
lido with epi injected in to site track. oozing stopped and dressing placed
== END 2023-04-09 22:41 | disposition home or self-care (01) ==
LOC: MHTC 11:01
DX: E10.51 Type 1 diabetes mellitus with diabetic peripheral angiopathy without gangrene (principal); I70.223 Atherosclerosis of native arteries of extremities with rest pain, bilateral legs; I70.213 Atherosclerosis of native arteries of extremities with intermittent claudication, bilateral legs; D63.1 Anemia in chronic kidney disease; I12.9 Hypertensive chronic kidney disease with stage 1 through stage 4 chronic kidney disease, or unspecified chronic kidney disease; Z86.73 Personal history of transient ischemic attack (TIA), and cerebral infarction without residual deficits; K21.9 Gastro-esophageal reflux disease without esophagitis; E78.5 Hyperlipidemia, unspecified; G35 Multiple sclerosis; Z87.891 Personal history of nicotine dependence; N18.6 End stage renal disease; E10.22 Type 1 diabetes mellitus with diabetic chronic kidney disease
CPT/HCPCS: 75625; 75716; 75774; 76937; 85347; 99152; 99153; C1725; C1760; C1769; C1887; C1894; C9764; J1644; J2250; J3010; J7030; J7050; Q9967

== ENCOUNTER 2023-04-15 00:29 | Day surgery (SDC) | payer MEDICARE ==
[2023-04-15 11:33] VITALS: BP 140/63
[2023-04-15 12:03] LABS: Hemoglobin 9.7 g/dL (13.5-17.5); Mean Corpuscular HGB 33.2 pg (26.0-34.0); Mean Corpuscular HGB Conc 33.4 g/dL (31.5-36.5); Mean Corpuscular Volume 99 fL (80-100); Platelet Count 160 K/mm3 (150-400); RDW Coefficient Variation 13.7 % (11.7-14.2); RDW Standard Deviation 48.9 fL (35.1-46.3); Red Blood Cell Count 2.92 M/mm3 (4.30-5.90)
[2023-04-15 12:16] LABS: International Normalized Ratio 1.04; Prothrombin Time Results 10.9 Sec (9.7-11.5)
[2023-04-15 12:30] LABS: Bun/Creatinine Ratio 20.3 (12.0-20.0); Calcium, Blood 10.1 mg/dL (8.5-10.1); Creatinine, Blood 5.17 mg/dL (0.60-1.20); Potassium, Blood 4.7 mmol/L (3.5-5.5)
[2023-04-15 12:35] LABS: BASOPHILS PERCENT MAN 0 % (0-2); EOSINOPHILS ABSOLUTE MAN 0.34 K/mm3 (0.00-0.68); EOSINOPHILS PERCENT MAN 6 % (0-6); LYMPHOCYTES ABSOLUTE MAN 0.75 K/mm3 (0.84-5.20); LYMPHOCYTES PERCENT MAN 13 % (21-46); MONOCYTES ABSOLUTE MAN 0.11 K/mm3 (0.16-1.47); MONOCYTES PERCENT MAN 2 % (4-13); NEUTROPHILS ABSOLUTE MAN 4.58 K/mm3 (1.96-9.15); SEG NEUTROPHILS PERCENT MAN 79 % (41-73); TOTAL CELLS COUNTED 100
== END 2023-04-15 11:43 | disposition home or self-care (01) ==
LOC: ATC 00:29
PROVIDERS: Radiology Diagnostic Radiology
DX: E11.51 Type 2 diabetes mellitus with diabetic peripheral angiopathy without gangrene (principal); I70.223 Atherosclerosis of native arteries of extremities with rest pain, bilateral legs; I70.213 Atherosclerosis of native arteries of extremities with intermittent claudication, bilateral legs; K21.9 Gastro-esophageal reflux disease without esophagitis; E11.22 Type 2 diabetes mellitus with diabetic chronic kidney disease; I12.9 Hypertensive chronic kidney disease with stage 1 through stage 4 chronic kidney disease, or unspecified chronic kidney disease; N18.4 Chronic kidney disease, stage 4 (severe); Z87.891 Personal history of nicotine dependence; Z79.899 Other long term (current) drug therapy; Z88.5 Allergy status to narcotic agent; Z79.82 Long term (current) use of aspirin
CPT/HCPCS: 36591; 80048; 85007; 85027; 85610; J1642

== ENCOUNTER 2023-04-16 09:09 | Day surgery (SDC) | payer MEDICARE ==
[~2023-04-16] VITALS: Ht 185.4 cm; Wt 79.0 kg
[2023-04-16] VITALS (11 sets, daily range): BP systolic 124–161; BP diastolic 56–77
--- NOTE | 2023-04-16 13:10 | NUR ---
PT RETURNED TO RECOVERY ROOM IN BED. LEFT FEM GROIN SITE SOFT NON-TENDER WITH NO HEMATOMA, NO PULSATILE BLEEDING AND INTACT DRESSING. CALL LIGHT IN REACH; PT'S IN ROOM.
--- NOTE | 2023-04-16 13:27 | NUR ---
NO CHANGES TO LEFT FEMORAL GROIN SITE; LEFT PT DOPPLER.
--- NOTE | 2023-04-16 13:46 | NUR ---
NO CHANGES TO LEFT FEM SITE. L PT STILL DOPPLER.
--- NOTE | 2023-04-16 13:51 | NUR ---
HOB UP TO 30 DEGREES
--- NOTE | 2023-04-16 14:05 | NUR ---
NO CHANGES TO L FEM GROIN SITE; PT EATING LUNCH.
--- NOTE | 2023-04-16 15:32 | NUR ---
NO CHANGES TO LEFT FEM GROIN SITE. DISCHAREGE INSTRUCTIONS REVIEWED ALL QUESTIONS ANSWERED.20 IV DISCONTINUED FROM LEFT WRIST WITH INTACT CANNULA. PT ESCORTED OUT VIA WHEELCHAIR ESCORT.
== END 2023-04-16 15:30 | disposition home or self-care (01) ==
LOC: MHTC 09:09
DX: E11.51 Type 2 diabetes mellitus with diabetic peripheral angiopathy without gangrene (principal); I70.223 Atherosclerosis of native arteries of extremities with rest pain, bilateral legs; I70.213 Atherosclerosis of native arteries of extremities with intermittent claudication, bilateral legs; E11.22 Type 2 diabetes mellitus with diabetic chronic kidney disease; N18.4 Chronic kidney disease, stage 4 (severe); E55.9 Vitamin D deficiency, unspecified; E03.9 Hypothyroidism, unspecified; K21.9 Gastro-esophageal reflux disease without esophagitis; E78.5 Hyperlipidemia, unspecified; Z88.5 Allergy status to narcotic agent; Z88.8 Allergy status to other drugs, medicaments and biological substances; Z94.0 Kidney transplant status; Z87.891 Personal history of nicotine dependence; Z79.899 Other long term (current) drug therapy
CPT/HCPCS: 76937; 85347; 99152; 99153; C1725; C1760; C1769; C1887; C1894; C2623; J1644; J2250; J3010; J7030; J7050; Q9967

== ENCOUNTER 2023-04-19 03:15 | Day surgery (SDC) | payer MEDICARE ==
[2023-04-19 10:31] VITALS: BP 141/64
[2023-04-19 11:19] LABS: Hematocrit 29.7 % (37.0-53.0); Hemoglobin 9.7 g/dL (13.5-17.5); Mean Corpuscular HGB 33.1 pg (26.0-34.0); Mean Corpuscular HGB Conc 32.7 g/dL (31.5-36.5); Mean Corpuscular Volume 101 fL (80-100); Platelet Count 155 K/mm3 (150-400); RDW Coefficient Variation 14.1 % (11.7-14.2); RDW Standard Deviation 51.8 fL (35.1-46.3); Red Blood Cell Count 2.93 M/mm3 (4.30-5.90); White Blood Cell Count 7.57 K/mm3 (4.00-11.30)
[2023-04-19 11:30] LABS: Bun/Creatinine Ratio 20.3 (12.0-20.0); Calcium, Blood 9.6 mg/dL (8.5-10.1); Creatinine, Blood 5.23 mg/dL (0.60-1.20); Potassium, Blood 4.5 mmol/L (3.5-5.5)
[2023-04-19 12:02] LABS: International Normalized Ratio 1.06; Prothrombin Time Results 11.1 Sec (9.7-11.5)
[2023-04-19 12:23] LABS: BASOPHILS ABSOLUTE MAN 0.07 K/mm3 (0.00-0.23); BASOPHILS PERCENT MAN 1 % (0-2); EOSINOPHILS ABSOLUTE MAN 0.22 K/mm3 (0.00-0.68); EOSINOPHILS PERCENT MAN 3 % (0-6); LYMPHOCYTES ABSOLUTE MAN 1.13 K/mm3 (0.84-5.20); LYMPHOCYTES PERCENT MAN 15 % (21-46); MONOCYTES ABSOLUTE MAN 0.37 K/mm3 (0.16-1.47); MONOCYTES PERCENT MAN 5 % (4-13); NEUTROPHILS ABSOLUTE MAN 5.75 K/mm3 (1.96-9.15); SEG NEUTROPHILS PERCENT MAN 76 % (41-73); TOTAL CELLS COUNTED 100
== END 2023-04-19 10:40 | disposition home or self-care (01) ==
LOC: ATC 03:15
PROVIDERS: Radiology Diagnostic Radiology
DX: E10.51 Type 1 diabetes mellitus with diabetic peripheral angiopathy without gangrene (principal); I70.223 Atherosclerosis of native arteries of extremities with rest pain, bilateral legs; I70.213 Atherosclerosis of native arteries of extremities with intermittent claudication, bilateral legs; E10.22 Type 1 diabetes mellitus with diabetic chronic kidney disease; K21.9 Gastro-esophageal reflux disease without esophagitis; E78.5 Hyperlipidemia, unspecified; N18.6 End stage renal disease; I12.0 Hypertensive chronic kidney disease with stage 5 chronic kidney disease or end stage renal disease
CPT/HCPCS: 36591; 80048; 85007; 85027; 85610; J1642

== ENCOUNTER 2023-04-23 09:00 | Day surgery (SDC) | payer MEDICARE ==
[~2023-04-23] VITALS: Ht 185.4 cm; Wt 78.8 kg
[2023-04-23] VITALS (7 sets, daily range): BP systolic 141–150; BP diastolic 64–68
--- NOTE | 2023-04-23 12:14 | NUR ---
GROIN SITE SOFT AND NON-TENDER PER PT. NO SIGNS OF BLEEDING NOTED. AT BEDSIDE.
--- NOTE | 2023-04-23 13:00 | NUR ---
PT AMB IN RECOVERY APPROX 50FT. TOLERATED WELL. NEG SWELLING R GROIN AREA.
--- NOTE | 2023-04-23 13:30 | NUR ---
PT AND VERBALIZED UNDERSTANDING OF WRITTEN AND VERBAL D/C INST. IV REMOVED. PT TAKEN OUT OF THE HRT CENTER VIA W/C.
== END 2023-04-23 15:25 | disposition home or self-care (01) ==
LOC: MHTC 09:00
DX: E10.51 Type 1 diabetes mellitus with diabetic peripheral angiopathy without gangrene (principal); I70.213 Atherosclerosis of native arteries of extremities with intermittent claudication, bilateral legs; I70.223 Atherosclerosis of native arteries of extremities with rest pain, bilateral legs; E10.22 Type 1 diabetes mellitus with diabetic chronic kidney disease; N18.4 Chronic kidney disease, stage 4 (severe)
CPT/HCPCS: 76937; 99152; 99153; C1760; C1769; C1887; C1894; C2623; J1644; J2250; J3010; J7030; J7050; Q9967

== ENCOUNTER 2023-05-02 05:27 | Day surgery (SDC) | payer MEDICARE ==
[2023-05-02 08:20] VITALS: BP 127/67
[2023-05-02 08:41] LABS: BASOPHILS ABSOLUTE AUTO 0.03 K/mm3 (0.00-0.23); BASOPHILS PERCENT AUTO 1 % (0-2); EOSINOPHILS ABSOLUTE AUTO 0.45 K/mm3 (0.00-0.68); EOSINOPHILS PERCENT AUTO 8 % (0-6); Hematocrit 30.8 % (37.0-53.0); Hemoglobin 10.3 g/dL (13.5-17.5); IMMATURE GRAN ABSOLUTE AUTO 0.04 K/mm3 (0.00-0.10); IMMATURE GRAN PERCENT AUTO 1 % (0-1); LYMPHOCYTES ABSOLUTE AUTO 1.15 K/mm3 (0.84-5.20); LYMPHOCYTES PERCENT AUTO 20 % (21-46); MONOCYTES ABSOLUTE AUTO 0.61 K/mm3 (0.16-1.47); MONOCYTES PERCENT AUTO 11 % (4-13); Mean Corpuscular HGB 33.3 pg (26.0-34.0); Mean Corpuscular HGB Conc 33.4 g/dL (31.5-36.5); Mean Corpuscular Volume 100 fL (80-100); Mean Platelet Volume 9.7 fL (9.1-12.4); NEUTROPHILS ABSOLUTE AUTO 3.48 K/mm3 (1.96-9.15); NEUTROPHILS PERCENT AUTO 60 % (41-73); Platelet Count 147 K/mm3 (150-400); RDW Coefficient Variation 13.7 % (11.7-14.2); RDW Standard Deviation 49.9 fL (35.1-46.3); Red Blood Cell Count 3.09 M/mm3 (4.30-5.90); White Blood Cell Count 5.76 K/mm3 (4.00-11.30)
[2023-05-02 09:15] LABS: Alanine Aminotransfer (ALT/SGP 25 U/L (12-78); Albumin, Blood 2.5 g/dL (3.4-5.0); Albumin/Globulin Ratio 0.6 (0.8-1.8); Alk Phos 49 U/L (50-136); Anion Gap 8 mmol/L (6-16); Aspartate Aminotrans (AST/SGOT 19 U/L (12-37); Bilirubin, Total 0.3 mg/dL (0.1-1.0); Blood Urea Nitrogen 109 mg/dL (8-24); Bun/Creatinine Ratio 22.9 (12.0-20.0); CHOL/HDL RATIO 2.9; CO2, Blood 25 mmol/L (21-32); Calcium, Blood 9.3 mg/dL (8.5-10.1); Chloride, Blood 109 mmol/L (98-108); Cholesterol 161 mg/dL (50-200); Creatinine, Blood 4.77 mg/dL (0.60-1.20); Globulin, Blood 4.2 g/dL (2.2-4.0); Glomerular Filtration Rate 12 (60-); Glucose, Blood 89 mg/dL (70-99); HDL Cholesterol 55 mg/dL (>39); LDL/HDL RATIO 1.6; Low Density Lipoprotein Chol 90 mg/dL (0-110); Potassium, Blood 4.4 mmol/L (3.5-5.5); Sodium, Blood 142 mmol/L (136-145); Total Protein, Blood 6.7 g/dL (6.4-8.2); Triglycerides 81 mg/dL (30-160); Very Low Density Lipoprot Chol 16 mg/dL (6-32)
[2023-05-02 11:01] LABS: Creatinine, Urine Random 44.4 mg/dL (27.00-270.00)
[2023-05-02 11:04] LABS: Microalb/Creat Ratio UR, Rand 243.243 mg/g (0.000-30.000)
[2023-05-03 19:23] LABS: FRUCTOSAMINE 273 umol/L (205-285)
[2023-05-04 08:13] LABS: TACROLIMUS BY HPLC-MS/MS 2.9 ng/mL
[2023-05-05 06:11] LABS: HEMOGLOBIN A1C 5.3 % (4.8-5.6)
== END 2023-05-02 08:31 | disposition home or self-care (01) ==
LOC: ATC 05:27
PROVIDERS: Internal Medicine Endocrinology, Diabetes & Metabolism; Internal Medicine Nephrology; Registered Nurse
DX: E10.42 Type 1 diabetes mellitus with diabetic polyneuropathy (principal); E10.59 Type 1 diabetes mellitus with other circulatory complications; E10.21 Type 1 diabetes mellitus with diabetic nephropathy; E10.649 Type 1 diabetes mellitus with hypoglycemia without coma; E78.2 Mixed hyperlipidemia; Z94.0 Kidney transplant status; N18.6 End stage renal disease; Z99.2 Dependence on renal dialysis
CPT/HCPCS: 36591; 80053; 80061; 80197; 82043; 82570; 82985; 83036; 84443; 85025; J1642

== ENCOUNTER 2023-05-09 00:58 | Day surgery (SDC) | payer MEDICARE ==
[2023-05-09 09:47] VITALS: BP 110/59
[2023-05-09 11:04] LABS: Alanine Aminotransfer (ALT/SGP 29 U/L (12-78); Albumin, Blood 2.5 g/dL (3.4-5.0); Albumin/Globulin Ratio 0.7 (0.8-1.8); Alk Phos 46 U/L (50-136); Anion Gap 6 mmol/L (6-16); Aspartate Aminotrans (AST/SGOT 22 U/L (12-37); Bilirubin, Total 0.3 mg/dL (0.1-1.0); Blood Urea Nitrogen 109 mg/dL (8-24); Bun/Creatinine Ratio 24.7 (12.0-20.0); CHOL/HDL RATIO 2.3; CO2, Blood 25 mmol/L (21-32); Chloride, Blood 110 mmol/L (98-108); Cholesterol 142 mg/dL (50-200); Creatinine, Blood 4.42 mg/dL (0.60-1.20); Globulin, Blood 3.7 g/dL (2.2-4.0); Glomerular Filtration Rate 13 (60-); Glucose, Blood 175 mg/dL (70-99); HDL Cholesterol 61 mg/dL (>39); LDL/HDL RATIO 1.1; Low Density Lipoprotein Chol 66 mg/dL (0-110); Potassium, Blood 4.6 mmol/L (3.5-5.5); Sodium, Blood 141 mmol/L (136-145); Total Protein, Blood 6.2 g/dL (6.4-8.2); Triglycerides 77 mg/dL (30-160); Very Low Density Lipoprot Chol 15 mg/dL (6-32)
[2023-05-11 12:33] LABS: SERUM, C-PEPTIDE <0.1 ng/mL (0.5-3.3)
== END 2023-05-09 10:10 | disposition home or self-care (01) ==
LOC: ATC 00:58
PROVIDERS: Internal Medicine Endocrinology, Diabetes & Metabolism
DX: E10.42 Type 1 diabetes mellitus with diabetic polyneuropathy (principal); E10.59 Type 1 diabetes mellitus with other circulatory complications; E10.21 Type 1 diabetes mellitus with diabetic nephropathy; E10.649 Type 1 diabetes mellitus with hypoglycemia without coma; E78.2 Mixed hyperlipidemia
CPT/HCPCS: 36591; 80053; 80061; 82947; 83036; 84681; J1642

== ENCOUNTER 2023-06-03 01:49 | Day surgery (SDC) | payer MEDICARE, OTHER ==
[2023-06-03 11:24] VITALS: BP 157/70
== END 2023-06-03 11:26 | disposition home or self-care (01) ==
LOC: ATC 01:49
DX: Z45.2 Encounter for adjustment and management of vascular access device (principal)
CPT/HCPCS: 96523; J1642

== ENCOUNTER 2023-06-14 20:23 | Emergency (ER) | payer MEDICARE, OTHER ==
[~2023-06-14] VITALS: Ht 185.4 cm; Wt 79.4 kg
[2023-06-14 21:41] LABS: BASOPHILS ABSOLUTE AUTO 0.02 K/mm3 (0.00-0.23); BASOPHILS PERCENT AUTO 0 % (0-2); EOSINOPHILS ABSOLUTE AUTO 0.32 K/mm3 (0.00-0.68); EOSINOPHILS PERCENT AUTO 5 % (0-6); Hemoglobin 8.6 g/dL (13.5-17.5); IMMATURE GRAN ABSOLUTE AUTO 0.02 K/mm3 (0.00-0.10); IMMATURE GRAN PERCENT AUTO 0 % (0-1); LYMPHOCYTES ABSOLUTE AUTO 1.15 K/mm3 (0.84-5.20); LYMPHOCYTES PERCENT AUTO 19 % (21-46); MONOCYTES ABSOLUTE AUTO 0.64 K/mm3 (0.16-1.47); MONOCYTES PERCENT AUTO 10 % (4-13); Mean Corpuscular HGB 33.7 pg (26.0-34.0); Mean Corpuscular HGB Conc 33.1 g/dL (31.5-36.5); Mean Corpuscular Volume 102 fL (80-100); Mean Platelet Volume 10.8 fL (9.1-12.4); NEUTROPHILS ABSOLUTE AUTO 4.03 K/mm3 (1.96-9.15); NEUTROPHILS PERCENT AUTO 65 % (41-73); Platelet Count 110 K/mm3 (150-400); RDW Coefficient Variation 13.9 % (11.7-14.2); RDW Standard Deviation 51.8 fL (35.1-46.3); Red Blood Cell Count 2.55 M/mm3 (4.30-5.90); White Blood Cell Count 6.18 K/mm3 (4.00-11.30)
[2023-06-14 22:01] LABS: Albumin, Blood 2.6 g/dL (3.4-5.0); Albumin/Globulin Ratio 0.8 (0.8-1.8); Bilirubin, Total 0.2 mg/dL (0.1-1.0); Calcium, Blood 9.3 mg/dL (8.5-10.1); Creatinine, Blood 4.52 mg/dL (0.60-1.20); Globulin, Blood 3.2 g/dL (2.2-4.0); Magnesium, Blood 2.1 mg/dL (1.6-2.4); Potassium, Blood 4.6 mmol/L (3.5-5.5); Total Protein, Blood 5.8 g/dL (6.4-8.2)
[2023-06-14] MEDS ORDERED: Pantoprazole Sodium 40 MG Injection IV ONE (22:40)
[2023-06-15 00:37] LABS: Source, Urine Clean Catch
[2023-06-15 00:40] LABS: Bilirubin, Urine Neg (Neg); Blood, Urine Neg (Neg); Glucose Qualitative, Urine Neg (Neg); Ketones, Urine Neg (Neg); Leukocyte Esterase, Urine Neg (Neg); Nitrite, Urine Neg (Neg); Protein, Urine 1+ (Neg); Specific Gravity, Urine 1.015 (1.003-1.022); Urobilinogen, Urine NORM (Normal)
[2023-06-15 00:45] LABS: Appearance, Urine Clear (Clear); Color, Urine Yellow (P-Yellow)
[2023-06-15 02:27] VITALS: BP 137/55
== END 2023-06-15 03:47 | disposition short-term general hospital (02) ==
LOC: ER 20:23
PROVIDERS: Physician Assistant
DX: I12.0 Hypertensive chronic kidney disease with stage 5 chronic kidney disease or end stage renal disease (principal); N18.6 End stage renal disease; D63.1 Anemia in chronic kidney disease; D69.6 Thrombocytopenia, unspecified; E78.5 Hyperlipidemia, unspecified; K21.9 Gastro-esophageal reflux disease without esophagitis; Z87.891 Personal history of nicotine dependence; Z99.2 Dependence on renal dialysis
CPT/HCPCS: 74177; 80053; 82272; 83735; 85025; 86850; 86900; 86901; 93005; 93010; 96374-59; 99285-25; C9113; Q9967

== ENCOUNTER 2023-11-01 02:48 | Day surgery (SDC) | payer MEDICARE, OTHER ==
[~2023-11-01 02:48] MED LIST changes: +CULTURELLE ADV1 EACH PO; +DOC250 PO; +MIDODRINE HCL10 M1 PO; +PANTOPRAZOLE SO40 M2 PO; +SOAANZ20 M3 PO
[2023-11-01 08:18] VITALS: BP 158/74
[2023-11-01 09:06] LABS: CHOL/HDL RATIO 2.3; Cholesterol 157 mg/dL (50-200); HDL Cholesterol 69 mg/dL (>39); Low Density Lipoprotein Chol 70 mg/dL (0-110); Triglycerides 88 mg/dL (30-160); Very Low Density Lipoprot Chol 17 mg/dL (6-32)
--- NOTE | 2023-11-01 13:15 | NUR ---
LAB RESULTS FROM TODAY FAXED TO DR. GAY'S OFFICE.
[2023-11-03 19:33] LABS: TACROLIMUS BY HPLC-MS/MS 3.3 ng/mL
== END 2023-11-01 08:32 | disposition home or self-care (01) ==
LOC: ATC 02:48
PROVIDERS: Internal Medicine Endocrinology, Diabetes & Metabolism; Internal Medicine Nephrology
DX: E10.42 Type 1 diabetes mellitus with diabetic polyneuropathy (principal)
CPT/HCPCS: 36591; 80061; 80197; 83036; J1642

== ENCOUNTER 2024-01-31 10:06 | Day surgery (SDC) | payer MEDICARE, OTHER ==
[2024-01-31 08:26] VITALS: BP 135/67
[2024-01-31 09:32] LABS: Magnesium, Blood 1.9 mg/dL (1.6-2.4); Potassium, Blood 3.7 mmol/L (3.5-5.5)
[2024-01-31 09:40] LABS: PSA, %Free 15.4 %; PSA, Free 0.099 ng/mL; Prostate Specific Antigen 0.644 ng/mL (0.000-4.000)
[2024-02-03 13:02] LABS: FRUCTOSAMINE 280 umol/L (205-285)
== END 2024-02-01 03:05 | disposition home or self-care (01) ==
LOC: ATC 10:06
PROVIDERS: Internal Medicine Endocrinology, Diabetes & Metabolism; Internal Medicine Nephrology; Registered Nurse; Urology
DX: E10.22 Type 1 diabetes mellitus with diabetic chronic kidney disease (principal); N18.6 End stage renal disease; E10.42 Type 1 diabetes mellitus with diabetic polyneuropathy; I47.29 Other ventricular tachycardia; Z45.2 Encounter for adjustment and management of vascular access device; Z94.0 Kidney transplant status; Z99.2 Dependence on renal dialysis; J18.9 Pneumonia, unspecified organism; Z95.2 Presence of prosthetic heart valve
CPT/HCPCS: 36591; 71046; 80197; 82985; 83735; 84132; 84153; 84154; J1642

== ENCOUNTER 2024-03-03 02:45 | Day surgery (SDC) | payer MEDICARE, OTHER ==
[2024-03-03 11:25] VITALS: BP 161/69
== END 2024-03-03 11:25 | disposition home or self-care (01) ==
LOC: ATC 02:45
DX: Z45.2 Encounter for adjustment and management of vascular access device (principal)
CPT/HCPCS: 96523; J1642

== ENCOUNTER 2024-03-25 01:12 | Day surgery (SDC) | payer MEDICARE, OTHER | END 2024-03-25 23:02 | disposition home or self-care (01) | LOC: WOUND 01:12 | DX: E10.621 Type 1 diabetes mellitus with foot ulcer (principal); L97.412 Non-pressure chronic ulcer of right heel and midfoot with fat layer exposed; L97.522 Non-pressure chronic ulcer of other part of left foot with fat layer exposed; L89.613 Pressure ulcer of right heel, stage 3; I10 Essential (primary) hypertension; I25.10 Atherosclerotic heart disease of native coronary artery without angina pectoris; E10.51 Type 1 diabetes mellitus with diabetic peripheral angiopathy without gangrene; E10.40 Type 1 diabetes mellitus with diabetic neuropathy, unspecified | CPT/HCPCS: G0463 ==

== ENCOUNTER 2024-03-31 05:58 | Day surgery (SDC) | payer MEDICARE, OTHER | END 2024-03-31 23:00 | disposition home or self-care (01) | LOC: WOUND 05:58 | DX: E10.621 Type 1 diabetes mellitus with foot ulcer (principal); L97.412 Non-pressure chronic ulcer of right heel and midfoot with fat layer exposed; L97.529 Non-pressure chronic ulcer of other part of left foot with unspecified severity; L97.522 Non-pressure chronic ulcer of other part of left foot with fat layer exposed; L89.613 Pressure ulcer of right heel, stage 3; L89.893 Pressure ulcer of other site, stage 3; I10 Essential (primary) hypertension; I25.10 Atherosclerotic heart disease of native coronary artery without angina pectoris; E10.40 Type 1 diabetes mellitus with diabetic neuropathy, unspecified; E10.51 Type 1 diabetes mellitus with diabetic peripheral angiopathy without gangrene | CPT/HCPCS: G0463 ==

== ENCOUNTER 2024-04-02 02:33 | Day surgery (SDC) | payer MEDICARE, OTHER ==
[2024-04-02 11:11] VITALS: BP 152/67
== END 2024-04-02 11:19 | disposition home or self-care (01) ==
LOC: ATC 02:33
DX: Z45.2 Encounter for adjustment and management of vascular access device (principal); I10 Essential (primary) hypertension; E78.5 Hyperlipidemia, unspecified; D64.9 Anemia, unspecified; K21.9 Gastro-esophageal reflux disease without esophagitis; K31.84 Gastroparesis; I73.9 Peripheral vascular disease, unspecified; M81.0 Age-related osteoporosis without current pathological fracture; Z95.0 Presence of cardiac pacemaker; Z94.83 Pancreas transplant status; Z94.0 Kidney transplant status; Z89.021 Acquired absence of right finger(s)
CPT/HCPCS: 96523; J1642

== ENCOUNTER 2024-04-07 03:02 | Day surgery (SDC) | payer MEDICARE, OTHER | END 2024-04-07 23:00 | disposition home or self-care (01) | LOC: WOUND 03:02 | DX: E10.621 Type 1 diabetes mellitus with foot ulcer (principal); L97.412 Non-pressure chronic ulcer of right heel and midfoot with fat layer exposed; L89.893 Pressure ulcer of other site, stage 3; E10.51 Type 1 diabetes mellitus with diabetic peripheral angiopathy without gangrene; E10.40 Type 1 diabetes mellitus with diabetic neuropathy, unspecified; I10 Essential (primary) hypertension; I25.10 Atherosclerotic heart disease of native coronary artery without angina pectoris | CPT/HCPCS: G0463 ==

== ENCOUNTER 2024-04-15 05:30 | Day surgery (SDC) | payer MEDICARE, OTHER ==
[2024-04-15] MEDS ORDERED: Lidocaine HCl 4% Cream 5 GM ONE (10:49)
== END 2024-04-15 23:00 | disposition home or self-care (01) ==
LOC: WOUND 05:30
DX: E10.621 Type 1 diabetes mellitus with foot ulcer (principal); L97.412 Non-pressure chronic ulcer of right heel and midfoot with fat layer exposed; L97.522 Non-pressure chronic ulcer of other part of left foot with fat layer exposed; E10.51 Type 1 diabetes mellitus with diabetic peripheral angiopathy without gangrene; I10 Essential (primary) hypertension; I25.10 Atherosclerotic heart disease of native coronary artery without angina pectoris
CPT/HCPCS: A9270; G0463

== ENCOUNTER 2024-04-30 04:55 | Day surgery (SDC) | payer MEDICARE, OTHER ==
[2024-04-30] MEDS ORDERED: Lidocaine HCl 4% Cream 5 GM ONE (12:31)
== END 2024-04-30 23:00 | disposition home or self-care (01) ==
LOC: WOUND 04:55
DX: E10.621 Type 1 diabetes mellitus with foot ulcer (principal); E10.51 Type 1 diabetes mellitus with diabetic peripheral angiopathy without gangrene; E10.40 Type 1 diabetes mellitus with diabetic neuropathy, unspecified; L97.522 Non-pressure chronic ulcer of other part of left foot with fat layer exposed; L97.412 Non-pressure chronic ulcer of right heel and midfoot with fat layer exposed; L89.893 Pressure ulcer of other site, stage 3; I25.10 Atherosclerotic heart disease of native coronary artery without angina pectoris; I10 Essential (primary) hypertension; M79.89 Other specified soft tissue disorders
CPT/HCPCS: 73630; 73660; A9270; G0463

== ENCOUNTER 2024-05-04 03:51 | Day surgery (SDC) | payer MEDICARE, OTHER ==
[2024-05-04 08:21] VITALS: BP 161/81
[2024-05-06 01:57] LABS: FRUCTOSAMINE 285 umol/L (205-285)
[2024-05-06 03:00] LABS: TACROLIMUS BY HPLC-MS/MS 4.6 ng/mL
--- NOTE | 2024-05-08 10:34 | NUR ---
Lab results from 05/04/[address] Curry's office.
== END 2024-05-04 08:21 | disposition home or self-care (01) ==
LOC: ATC 03:51
PROVIDERS: Internal Medicine Nephrology
DX: Z48.22 Encounter for aftercare following kidney transplant (principal); Z94.0 Kidney transplant status; E10.42 Type 1 diabetes mellitus with diabetic polyneuropathy; I10 Essential (primary) hypertension; K21.9 Gastro-esophageal reflux disease without esophagitis
CPT/HCPCS: 36591; 80197; 82985; 83036; J1642

== ENCOUNTER 2024-05-06 01:13 | Day surgery (SDC) | payer MEDICARE, OTHER ==
[2024-05-06] MEDS ORDERED: Lidocaine HCl 4% Cream 5 GM ONE (11:13)
== END 2024-05-06 23:00 | disposition home or self-care (01) ==
LOC: WOUND 01:13
DX: E10.621 Type 1 diabetes mellitus with foot ulcer (principal); L97.412 Non-pressure chronic ulcer of right heel and midfoot with fat layer exposed; L97.522 Non-pressure chronic ulcer of other part of left foot with fat layer exposed; L89.893 Pressure ulcer of other site, stage 3; I10 Essential (primary) hypertension; I25.10 Atherosclerotic heart disease of native coronary artery without angina pectoris; E10.51 Type 1 diabetes mellitus with diabetic peripheral angiopathy without gangrene; E10.40 Type 1 diabetes mellitus with diabetic neuropathy, unspecified
CPT/HCPCS: A9270

== ENCOUNTER 2024-05-13 04:55 | Day surgery (SDC) | payer MEDICARE, OTHER ==
[2024-05-13] MEDS ORDERED: Lidocaine HCl 4% Cream 5 GM ONE (10:12)
== END 2024-05-13 23:02 | disposition home or self-care (01) ==
LOC: WOUND 04:55
DX: E10.621 Type 1 diabetes mellitus with foot ulcer (principal); L97.412 Non-pressure chronic ulcer of right heel and midfoot with fat layer exposed; L89.893 Pressure ulcer of other site, stage 3; L97.522 Non-pressure chronic ulcer of other part of left foot with fat layer exposed; E10.51 Type 1 diabetes mellitus with diabetic peripheral angiopathy without gangrene; E10.40 Type 1 diabetes mellitus with diabetic neuropathy, unspecified
CPT/HCPCS: A9270

== ENCOUNTER 2024-05-26 15:23 | Day surgery (SDC) | payer MEDICARE, OTHER ==
[2024-05-26 16:19] VITALS: BP 149/85
[2024-05-26 16:52] LABS: BASOPHILS ABSOLUTE AUTO 0.01 K/mm3 (0.00-0.23); BASOPHILS PERCENT AUTO 0 % (0-2); EOSINOPHILS ABSOLUTE AUTO 0.16 K/mm3 (0.00-0.68); EOSINOPHILS PERCENT AUTO 3 % (0-6); Hematocrit 27.4 % (37.0-53.0); Hemoglobin 9.4 g/dL (13.5-17.5); IMMATURE GRAN ABSOLUTE AUTO 0.02 K/mm3 (0.00-0.10); IMMATURE GRAN PERCENT AUTO 0 % (0-1); LYMPHOCYTES PERCENT AUTO 25 % (21-46); MONOCYTES ABSOLUTE AUTO 0.55 K/mm3 (0.16-1.47); MONOCYTES PERCENT AUTO 11 % (4-13); Mean Corpuscular HGB 34.3 pg (26.0-34.0); Mean Corpuscular HGB Conc 34.3 g/dL (31.5-36.5); Mean Corpuscular Volume 100 fL (80-100); NEUTROPHILS ABSOLUTE AUTO 2.96 K/mm3 (1.96-9.15); NEUTROPHILS PERCENT AUTO 60 % (41-73); Platelet Count 158 K/mm3 (150-400); RDW Coefficient Variation 13.6 % (11.7-14.2); RDW Standard Deviation 47.8 fL (35.1-46.3); Red Blood Cell Count 2.74 M/mm3 (4.30-5.90)
[2024-05-26 17:12] LABS: Bun/Creatinine Ratio 19.2 (12.0-20.0); Calcium, Blood 8.8 mg/dL (8.5-10.1); Creatinine, Blood 5.79 mg/dL (0.60-1.20); Potassium, Blood 4.1 mmol/L (3.5-5.5)
== END 2024-05-26 16:25 | disposition home or self-care (01) ==
LOC: ATC 15:23
PROVIDERS: Podiatrist Foot & Ankle Surgery
DX: I12.0 Hypertensive chronic kidney disease with stage 5 chronic kidney disease or end stage renal disease (principal); N18.6 End stage renal disease; E78.5 Hyperlipidemia, unspecified; M81.0 Age-related osteoporosis without current pathological fracture; I73.9 Peripheral vascular disease, unspecified
CPT/HCPCS: 36591; 80048; 83036; 85025; J1642

== ENCOUNTER 2024-05-27 03:12 | Day surgery (SDC) | payer MEDICARE, OTHER | END 2024-05-27 23:00 | disposition home or self-care (01) | LOC: WOUND 03:12 | DX: E10.621 Type 1 diabetes mellitus with foot ulcer (principal); L97.512 Non-pressure chronic ulcer of other part of right foot with fat layer exposed; L97.422 Non-pressure chronic ulcer of left heel and midfoot with fat layer exposed; L89.893 Pressure ulcer of other site, stage 3; I10 Essential (primary) hypertension; I25.10 Atherosclerotic heart disease of native coronary artery without angina pectoris; E10.51 Type 1 diabetes mellitus with diabetic peripheral angiopathy without gangrene; E10.40 Type 1 diabetes mellitus with diabetic neuropathy, unspecified | CPT/HCPCS: G0463 ==

== ENCOUNTER 2024-05-29 12:08 | Day surgery (SDC) | payer MEDICARE, OTHER ==
[~2024-05-29] VITALS: Ht 185.4 cm; Wt 78.2 kg
[2024-05-29] MEDS ORDERED: CeFAZolin Sodium 3,000 MG in NS 100 ML IV SCH (13:25)
[2024-05-29] MEDS ORDERED: Lactated Ringer's 1,000 ML IV SCH (13:25)
[2024-05-29] MEDS ORDERED: CeFAZolin Sodium 2,000 MG in NS 100 ML IV SCH (13:35)
[2024-05-29 13:42] VITALS: BP 173/71
[2024-05-29] MEDS ORDERED: CeFAZolin Sodium 2,000 MG VIAL ONE (13:57)
[2024-05-29] MEDS ORDERED: XARELTO20 MG PO (14:01)
[2024-05-29] MEDS ORDERED: MEGE40T PO (14:03)
[2024-05-29] MEDS ORDERED: FINA5 PO (14:03)
--- NOTE | 2024-05-29 14:18 | NUR ---
PT CBG W/ IV START WAS 75 AND DEXCOM SHOWED 92. DEXACOM NOW SHOWING 78 PT STATES "I FEEL OK"
[2024-05-29] MEDS ORDERED: propofoL 20 ML IV ONE ×2 (14:19)
[2024-05-29] MEDS ORDERED: NS 1,000 ML IV SCH (14:25)
[2024-05-29] MEDS ORDERED: Bupivacaine 0.5% HCl 5 MG/ML 30MLVIAL ONE (14:28)
[2024-05-29] MEDS ORDERED: Lidocaine HCl 1% 30 ML SDV ONE (14:28)
[2024-05-29 15:31] VITALS: BP 118/63
[2024-05-29 16:10] VITALS: BP 124/66
--- NOTE | 2024-05-29 16:13 | NUR ---
AXOX4, REPORTS 0/10 PAIN, HAS CDI JOHN BANDAGE WRAPS ON BILAT FEET, CAP REFILL ON BILAT TOES <3 SECONDS. POST OP SHOES PLACED ON BOTH FEET PER DR. SIMMONS.
--- NOTE | 2024-05-29 16:15 | NUR ---
Ambulatory in Day Surgery WITH POST OP SHOES FROM [facility] TO WHEEL CHAIR. Discharge instructions reviewed with patient. Patient verbalizes understanding. Copy given to patient to take home. Dressing to procedure site clean, dry, intact with no visible drainage, swelling, erythema or bruising noted. Discharged via wheelchair to private car for ride home. ALL BELONGINGS RETURNED TO PATIENT.
== END 2024-05-29 23:00 | disposition home or self-care (01) ==
LOC: ORSCSDS 12:08 → ORSCMMR 12:08 → ORSCSDS 23:00
PROVIDERS: Podiatrist Foot & Ankle Surgery
PROC: 0Y6Y0Z0 Detachment at Left 5th Toe, Complete, Open Approach (ICD-10-PCS; principal; 2024-05-29 14:30)
PROC: 0Y6M0ZF Detachment at Right Foot, Partial 5th Ray, Open Approach (ICD-10-PCS; principal; 2024-05-29 14:30)
DX: Z01.812 Encounter for preprocedural laboratory examination (principal); E10.621 Type 1 diabetes mellitus with foot ulcer; E10.622 Type 1 diabetes mellitus with other skin ulcer; E10.40 Type 1 diabetes mellitus with diabetic neuropathy, unspecified; L97.509 Non-pressure chronic ulcer of other part of unspecified foot with unspecified severity; M79.89 Other specified soft tissue disorders; I10 Essential (primary) hypertension; Z79.4 Long term (current) use of insulin; Z79.899 Other long term (current) drug therapy
CPT/HCPCS: 36415; 82947; 84132; 88305; 88311; J0690; J2704; J7030; J7120

== ENCOUNTER 2024-06-24 01:55 | Day surgery (SDC) | payer MEDICARE, OTHER ==
[~2024-06-24 01:55] MED LIST changes: +FINA5 PO; +MEGE40T PO; +XARELTO20 MG PO
[2024-06-24 10:26] VITALS: BP 145/52
[2024-06-24 11:22] VITALS: BP 150/69
[2024-06-24 11:48] LABS: Hematocrit 26.7 % (37.0-53.0); Mean Corpuscular HGB 35.3 pg (26.0-34.0); Mean Corpuscular HGB Conc 33.7 g/dL (31.5-36.5); Mean Corpuscular Volume 105 fL (80-100); Mean Platelet Volume 9.8 fL (9.1-12.4); Platelet Count 159 K/mm3 (150-400); RDW Coefficient Variation 15.6 % (11.7-14.2); RDW Standard Deviation 59.6 fL (35.1-46.3); Red Blood Cell Count 2.55 M/mm3 (4.30-5.90); White Blood Cell Count 5.24 K/mm3 (4.00-11.30)
[2024-06-24 11:59] LABS: International Normalized Ratio 0.99; Prothrombin Time Results 10.6 Sec (9.7-11.5)
[2024-06-24 12:12] LABS: Bun/Creatinine Ratio 18.7 (12.0-20.0); Calcium, Blood 9.1 mg/dL (8.5-10.1); Creatinine, Blood 5.67 mg/dL (0.60-1.20); Potassium, Blood 4.1 mmol/L (3.5-5.5)
[2024-06-24 12:20] LABS: BASOPHILS ABSOLUTE MAN 0.05 K/mm3 (0.00-0.23); BASOPHILS PERCENT MAN 1 % (0-2); EOSINOPHILS ABSOLUTE MAN 0.31 K/mm3 (0.00-0.68); EOSINOPHILS PERCENT MAN 6 % (0-6); LYMPHOCYTES ABSOLUTE MAN 0.94 K/mm3 (0.84-5.20); LYMPHOCYTES PERCENT MAN 18 % (21-46); MONOCYTES PERCENT MAN 4 % (4-13); NEUTROPHILS ABSOLUTE MAN 3.72 K/mm3 (1.96-9.15); SEG NEUTROPHILS PERCENT MAN 71 % (41-73); TOTAL CELLS COUNTED 100
[2024-06-25] MEDS ORDERED: TESTOSTERONE TD (09:25)
== END 2024-06-24 10:33 | disposition home or self-care (01) ==
LOC: ATC 01:55
PROVIDERS: Physician Assistant
DX: I12.0 Hypertensive chronic kidney disease with stage 5 chronic kidney disease or end stage renal disease (principal); N18.6 End stage renal disease; I70.223 Atherosclerosis of native arteries of extremities with rest pain, bilateral legs; M86.9 Osteomyelitis, unspecified; E78.5 Hyperlipidemia, unspecified; K21.9 Gastro-esophageal reflux disease without esophagitis; Z94.0 Kidney transplant status; Z94.83 Pancreas transplant status; Z95.0 Presence of cardiac pacemaker; Z89.421 Acquired absence of other right toe(s); Z86.73 Personal history of transient ischemic attack (TIA), and cerebral infarction without residual deficits
CPT/HCPCS: 36591; 80048; 85007; 85027; 85610; J1642

== ENCOUNTER 2024-06-25 08:46 | Day surgery (SDC) | payer MEDICARE, OTHER ==
[2024-06-25] VITALS (14 sets, daily range): BP systolic 134–181; BP diastolic 63–106
[~2024-06-25] VITALS: Ht 185.4 cm; Wt 73.6 kg
[2024-06-25] MEDS ORDERED: Nitroglycerin 2 MG/20 ML BTL ONE (08:56)
[2024-06-25] MEDS ORDERED: NS 1,000 ML IV ONE ×2 (08:56→08:58)
[2024-06-25] MEDS ORDERED: NS 500 ML IV ONE (08:56)
[2024-06-25] MEDS ORDERED: Heparin Sodium 1000 Units/ML 10ML MDV ONE ×2 (08:56→10:23)
[2024-06-25] MEDS ORDERED: Midazolam HCl 1MG / ML 2ML Vial ONE ×2 (08:58→10:23)
[2024-06-25] MEDS ORDERED: FentaNYL Citrate 50 MCG/ML 2 ML Injection ONE ×2 (08:58→10:23)
[2024-06-25] MEDS ORDERED: TESTOSTERONE TD (09:25)
--- NOTE | 2024-06-25 12:15 | NUR ---
ASSUMED CARE OF PT POST PROCEDURE. PT DROWSY, BUT EASILY ROUSABLE; ANSWERING QUESTIONS APPROPRIATELY, DENIES PAIN POST PROCEDURE. MONITOR SR 70'S, B/P 178/78, SPO2 100% RA. L GROIN SITE NO SWELLING/HEMATOMA, AMADO AND TEGADERM DRSG INTACT; ANGIO SEAL DEPLOYED, LLE: DOPPLER X 2. PT'S AT BEDSIDE ATTENTIVE.
--- NOTE | 2024-06-25 12:33 | NUR ---
DR REYNA IN TO REVIEW RESULTS OF PROCEDURE WITH PT AND .
--- NOTE | 2024-06-25 13:15 | NUR ---
PT'S HOB ELEVATED, SITE UNCHANGED.
--- NOTE | 2024-06-25 13:17 | NUR ---
PT LAYING FLAT, FOLLOWING DIRECTIONS. PT SIPPING COFFEE, REFUSES FOOD OR WATER AT THIS TIME. PT SPOUSE AT BEDSIDE.
--- NOTE | 2024-06-25 13:22 | NUR ---
PT SITTING UP 30 DEGREES.
--- NOTE | 2024-06-25 14:35 | NUR ---
PT DRESSED SELF WITH MINIMAL ASSIST, SITE UNCHANGED; PORT HEP LOCKED AND PASCUAL NEEDLE REMOVED WITHOUT ISSUE.
--- NOTE | 2024-06-25 14:57 | NUR ---
PT AND RECEIVED DISCHARGE INSTRUCTIONS, MED LIST AND AFTER CARE INSTRUCTIONS; VERBALIZED GOOD UNDERSTANDING. PT LEFT FACILITY VIA W/C, CONDITION STABLE.
== END 2024-06-25 15:48 | disposition home or self-care (01) ==
LOC: MHTC 08:46
DX: E10.51 Type 1 diabetes mellitus with diabetic peripheral angiopathy without gangrene (principal); I70.223 Atherosclerosis of native arteries of extremities with rest pain, bilateral legs; E10.69 Type 1 diabetes mellitus with other specified complication; M86.9 Osteomyelitis, unspecified; I12.0 Hypertensive chronic kidney disease with stage 5 chronic kidney disease or end stage renal disease; E10.22 Type 1 diabetes mellitus with diabetic chronic kidney disease; N18.6 End stage renal disease; N25.81 Secondary hyperparathyroidism of renal origin; G35 Multiple sclerosis; E78.2 Mixed hyperlipidemia; K21.9 Gastro-esophageal reflux disease without esophagitis; E03.9 Hypothyroidism, unspecified; Z99.2 Dependence on renal dialysis; Z87.891 Personal history of nicotine dependence; Z89.422 Acquired absence of other left toe(s); Z89.421 Acquired absence of other right toe(s); Z94.0 Kidney transplant status; Z94.83 Pancreas transplant status; Z95.0 Presence of cardiac pacemaker; Z79.82 Long term (current) use of aspirin; Z79.4 Long term (current) use of insulin; Z79.01 Long term (current) use of anticoagulants; Z79.899 Other long term (current) drug therapy; Z88.5 Allergy status to narcotic agent; Z88.6 Allergy status to analgesic agent; Z91.013 Allergy to seafood; Z91.018 Allergy to other foods
CPT/HCPCS: 75625; 75716; 75774; 76937; 85347; 99152; 99153; C1725; C1760; C1769; C1887; C1894; C2623; C9764; C9772; J1642; J1644; J2250; J3010; J7030; J7050; Q9967

== ENCOUNTER 2024-07-01 01:11 | Day surgery (SDC) | payer MEDICARE, OTHER ==
[~2024-07-01 01:11] MED LIST changes: +TESTOSTERONE TD
[2024-07-01 11:27] VITALS: BP 158/63
[2024-07-01 12:07] LABS: International Normalized Ratio 0.99; Prothrombin Time Results 10.6 Sec (9.7-11.5)
[2024-07-01 12:14] LABS: Bun/Creatinine Ratio 19.3 (12.0-20.0); Calcium, Blood 9.2 mg/dL (8.5-10.1); Creatinine, Blood 5.75 mg/dL (0.60-1.20); Potassium, Blood 4.1 mmol/L (3.5-5.5)
== END 2024-07-01 11:38 | disposition home or self-care (01) ==
LOC: ATC 01:11
PROVIDERS: Physician Assistant
DX: I12.0 Hypertensive chronic kidney disease with stage 5 chronic kidney disease or end stage renal disease (principal); N18.6 End stage renal disease; E78.5 Hyperlipidemia, unspecified; M81.0 Age-related osteoporosis without current pathological fracture; I73.9 Peripheral vascular disease, unspecified; K21.9 Gastro-esophageal reflux disease without esophagitis
CPT/HCPCS: 36591; 80048; 85610; J1642

== ENCOUNTER 2024-07-03 09:00 | Day surgery (SDC) | payer MEDICARE, OTHER ==
[2024-07-03] VITALS (7 sets, daily range): BP systolic 138–171; BP diastolic 67–98
[~2024-07-03] VITALS: Ht 185.4 cm; Wt 78.0 kg
[2024-07-03] MEDS ORDERED: NS 1,000 ML IV ONE ×2 (09:18→09:37)
[2024-07-03] MEDS ORDERED: Nitroglycerin 2 MG/20 ML BTL ONE ×2 (09:18→11:22)
[2024-07-03] MEDS ORDERED: NS 500 ML IV ONE (09:18)
[2024-07-03] MEDS ORDERED: Heparin Sodium 1000 Units/ML 10ML MDV ONE (09:18)
[2024-07-03] MEDS ORDERED: Midazolam HCl 1MG / ML 2ML Vial ONE (09:36)
[2024-07-03] MEDS ORDERED: FentaNYL Citrate 50 MCG/ML 2 ML Injection ONE (09:37)
[2024-07-03] MEDS ORDERED: Verapamil HCL 2.5 MG/ML 2ML Injection ONE (10:53)
[2024-07-03] MEDS ORDERED: Heparin Sodium 5000 Units/ML 1ML MDV ONE (14:04)
--- NOTE | 2024-07-03 14:19 | NUR ---
PT MEDIPORT HEPORONIZED AND DC'D, BANDAID APPLIED. NO BLEEDING NOTED. PT TOLERATES WELL. PT R FEMORAL SITE AND L PT REMAINS C/D/I. NO BLEEDING OR HEMATOMA NOTED. VSS. PT AND S/O VERBALIZES UNDERSTANDING WRITTEN AND VERBAL INSTRUCTIONS. DENIES QUESTIONS OR CONCERNS. PT DC TO HOME VIA S/O BY WC
== END 2024-07-03 15:35 | disposition home or self-care (01) ==
LOC: MHTC 09:00
DX: E11.51 Type 2 diabetes mellitus with diabetic peripheral angiopathy without gangrene (principal); I70.223 Atherosclerosis of native arteries of extremities with rest pain, bilateral legs; M86.9 Osteomyelitis, unspecified; I10 Essential (primary) hypertension; E78.5 Hyperlipidemia, unspecified; E11.22 Type 2 diabetes mellitus with diabetic chronic kidney disease; I12.0 Hypertensive chronic kidney disease with stage 5 chronic kidney disease or end stage renal disease; N18.6 End stage renal disease; Z99.2 Dependence on renal dialysis; Z87.891 Personal history of nicotine dependence; Z88.5 Allergy status to narcotic agent; Z88.8 Allergy status to other drugs, medicaments and biological substances; Z79.899 Other long term (current) drug therapy
CPT/HCPCS: 76937; 82947; 99152; 99153; C1725; C1760; C1769; C1887; C1894; J1642; J1644; J2250; J3010; J7030; J7050; Q9967

== ENCOUNTER 2024-07-06 02:13 | Day surgery (SDC) | payer MEDICARE, OTHER ==
[2024-07-06] MEDS ORDERED: Lidocaine HCl 4% Cream 5 GM ONE (13:53)
== END 2024-07-06 23:00 | disposition home or self-care (01) ==
LOC: WOUND 02:13
DX: E10.621 Type 1 diabetes mellitus with foot ulcer (principal); L97.522 Non-pressure chronic ulcer of other part of left foot with fat layer exposed; L97.512 Non-pressure chronic ulcer of other part of right foot with fat layer exposed; E10.51 Type 1 diabetes mellitus with diabetic peripheral angiopathy without gangrene; E10.40 Type 1 diabetes mellitus with diabetic neuropathy, unspecified; I25.10 Atherosclerotic heart disease of native coronary artery without angina pectoris; E03.9 Hypothyroidism, unspecified; I12.0 Hypertensive chronic kidney disease with stage 5 chronic kidney disease or end stage renal disease; E10.22 Type 1 diabetes mellitus with diabetic chronic kidney disease; N18.6 End stage renal disease; Z99.2 Dependence on renal dialysis; Z87.891 Personal history of nicotine dependence; Z89.422 Acquired absence of other left toe(s)
CPT/HCPCS: A6213; A9270; G0463

== ENCOUNTER 2024-07-15 01:27 | Day surgery (SDC) | payer MEDICARE, OTHER ==
[2024-07-15] MEDS ORDERED: Lidocaine HCl 4% Cream 5 GM ONE (09:46)
== END 2024-07-15 23:00 | disposition home or self-care (01) ==
LOC: WOUND 01:27
DX: E10.621 Type 1 diabetes mellitus with foot ulcer (principal); L97.512 Non-pressure chronic ulcer of other part of right foot with fat layer exposed; L97.522 Non-pressure chronic ulcer of other part of left foot with fat layer exposed; E10.51 Type 1 diabetes mellitus with diabetic peripheral angiopathy without gangrene; E10.40 Type 1 diabetes mellitus with diabetic neuropathy, unspecified; I10 Essential (primary) hypertension; I25.10 Atherosclerotic heart disease of native coronary artery without angina pectoris; L97.429 Non-pressure chronic ulcer of left heel and midfoot with unspecified severity; Z89.422 Acquired absence of other left toe(s)
CPT/HCPCS: 73630; A6213; A9270

== ENCOUNTER 2024-07-21 02:56 | Day surgery (SDC) | payer MEDICARE, OTHER ==
[2024-07-21] MEDS ORDERED: Lidocaine HCl 4% Cream 5 GM ONE ×2 (14:46→15:00)
== END 2024-07-21 23:01 | disposition home or self-care (01) ==
LOC: WOUND 02:56
DX: E10.621 Type 1 diabetes mellitus with foot ulcer (principal); L97.512 Non-pressure chronic ulcer of other part of right foot with fat layer exposed; L97.522 Non-pressure chronic ulcer of other part of left foot with fat layer exposed; E10.51 Type 1 diabetes mellitus with diabetic peripheral angiopathy without gangrene; E10.40 Type 1 diabetes mellitus with diabetic neuropathy, unspecified; I10 Essential (primary) hypertension; I25.10 Atherosclerotic heart disease of native coronary artery without angina pectoris
CPT/HCPCS: A6213; A9270

== ENCOUNTER 2024-07-29 01:39 | Day surgery (SDC) | payer MEDICARE, OTHER ==
[2024-07-29] MEDS ORDERED: Lidocaine HCl 4% Cream 5 GM ONE (11:05)
== END 2024-07-29 23:00 | disposition home or self-care (01) ==
LOC: WOUND 01:39
DX: E10.621 Type 1 diabetes mellitus with foot ulcer (principal); L97.523 Non-pressure chronic ulcer of other part of left foot with necrosis of muscle; E10.51 Type 1 diabetes mellitus with diabetic peripheral angiopathy without gangrene; E10.40 Type 1 diabetes mellitus with diabetic neuropathy, unspecified
CPT/HCPCS: A6213; A9270

== ENCOUNTER 2024-07-31 00:47 | Day surgery (SDC) | payer MEDICARE, OTHER ==
[2024-07-31 08:28] VITALS: BP 164/76
[2024-08-02 13:41] LABS: TACROLIMUS BY HPLC-MS/MS 4.1 ng/mL
== END 2024-07-31 08:43 | disposition home or self-care (01) ==
LOC: ATC 00:47
PROVIDERS: Internal Medicine Nephrology
DX: Z45.2 Encounter for adjustment and management of vascular access device (principal); I12.0 Hypertensive chronic kidney disease with stage 5 chronic kidney disease or end stage renal disease; N18.6 End stage renal disease; I70.223 Atherosclerosis of native arteries of extremities with rest pain, bilateral legs; M86.9 Osteomyelitis, unspecified; K21.9 Gastro-esophageal reflux disease without esophagitis; Z94.0 Kidney transplant status; Z95.0 Presence of cardiac pacemaker
CPT/HCPCS: 36591; 80197; J1642

== ENCOUNTER → 2024-08-04 | Day surgery (SDC) | payer MEDICARE, OTHER ==
[~2024-08-04] MED LIST changes: +Lidocaine HCl 4% Cream 5 GM ONE; +Silver Nitr/Potassium Nitrate 1 EA APPL ONE
== END ==
LOC: WOUND 02:18
DX: E10.621 Type 1 diabetes mellitus with foot ulcer (principal); L97.525 Non-pressure chronic ulcer of other part of left foot with muscle involvement without evidence of necrosis; L97.515 Non-pressure chronic ulcer of other part of right foot with muscle involvement without evidence of necrosis; E10.51 Type 1 diabetes mellitus with diabetic peripheral angiopathy without gangrene; E10.40 Type 1 diabetes mellitus with diabetic neuropathy, unspecified; I10 Essential (primary) hypertension; I25.10 Atherosclerotic heart disease of native coronary artery without angina pectoris
CPT/HCPCS: A6213; A9270

== ENCOUNTER 2024-08-14 02:46 | Day surgery (SDC) | payer MEDICARE, OTHER ==
[~2024-08-14 02:46] MED LIST changes: -Lidocaine HCl 4% Cream 5 GM ONE; -Silver Nitr/Potassium Nitrate 1 EA APPL ONE
[2024-08-14] MEDS ORDERED: Lidocaine HCl 4% Cream 5 GM ONE (14:03)
== END 2024-08-14 23:00 | disposition home or self-care (01) ==
LOC: WOUND 02:46
DX: E10.621 Type 1 diabetes mellitus with foot ulcer (principal); L97.523 Non-pressure chronic ulcer of other part of left foot with necrosis of muscle; I25.10 Atherosclerotic heart disease of native coronary artery without angina pectoris; I10 Essential (primary) hypertension; E10.51 Type 1 diabetes mellitus with diabetic peripheral angiopathy without gangrene; E10.40 Type 1 diabetes mellitus with diabetic neuropathy, unspecified
CPT/HCPCS: A6213; A9270

== ENCOUNTER 2024-08-21 03:01 | Day surgery (SDC) | payer MEDICARE, OTHER ==
[2024-08-21] MEDS ORDERED: Lidocaine HCl 4% Cream 5 GM ONE (14:27)
== END 2024-08-21 23:00 | disposition home or self-care (01) ==
LOC: WOUND 03:01
DX: E10.621 Type 1 diabetes mellitus with foot ulcer (principal); L97.523 Non-pressure chronic ulcer of other part of left foot with necrosis of muscle; E10.51 Type 1 diabetes mellitus with diabetic peripheral angiopathy without gangrene; E10.40 Type 1 diabetes mellitus with diabetic neuropathy, unspecified; I10 Essential (primary) hypertension; I25.10 Atherosclerotic heart disease of native coronary artery without angina pectoris
CPT/HCPCS: A6213; A9270

== ENCOUNTER 2024-08-26 05:34 | Day surgery (SDC) | payer MEDICARE, OTHER ==
[2024-08-26] MEDS ORDERED: Lidocaine HCl 4% Cream 5 GM ONE (14:19)
== END 2024-08-26 23:00 | disposition home or self-care (01) ==
LOC: WOUND 05:34
DX: E10.621 Type 1 diabetes mellitus with foot ulcer (principal); L97.522 Non-pressure chronic ulcer of other part of left foot with fat layer exposed; L97.512 Non-pressure chronic ulcer of other part of right foot with fat layer exposed; E10.51 Type 1 diabetes mellitus with diabetic peripheral angiopathy without gangrene; E10.40 Type 1 diabetes mellitus with diabetic neuropathy, unspecified; I10 Essential (primary) hypertension; I25.10 Atherosclerotic heart disease of native coronary artery without angina pectoris
CPT/HCPCS: A6213; A9270

== ENCOUNTER 2024-08-31 05:25 | Day surgery (SDC) | payer MEDICARE, OTHER | END 2024-08-31 11:48 | disposition home or self-care (01) | LOC: ATC 05:25 | DX: I12.0 Hypertensive chronic kidney disease with stage 5 chronic kidney disease or end stage renal disease (principal); N18.6 End stage renal disease; M81.0 Age-related osteoporosis without current pathological fracture; K21.9 Gastro-esophageal reflux disease without esophagitis; E78.5 Hyperlipidemia, unspecified; I95.1 Orthostatic hypotension; I73.9 Peripheral vascular disease, unspecified | CPT/HCPCS: 96523; J1642 ==

== ENCOUNTER 2024-09-02 02:41 | Day surgery (SDC) | payer MEDICARE, OTHER ==
[2024-09-02] MEDS ORDERED: Lidocaine HCl 4% Cream 5 GM ONE (12:42)
== END 2024-09-02 23:00 | disposition home or self-care (01) ==
LOC: WOUND 02:41
DX: E10.621 Type 1 diabetes mellitus with foot ulcer (principal); L97.512 Non-pressure chronic ulcer of other part of right foot with fat layer exposed; L97.522 Non-pressure chronic ulcer of other part of left foot with fat layer exposed; E10.51 Type 1 diabetes mellitus with diabetic peripheral angiopathy without gangrene; I10 Essential (primary) hypertension; I25.10 Atherosclerotic heart disease of native coronary artery without angina pectoris
CPT/HCPCS: A6213; A9270

== ENCOUNTER 2024-09-09 03:06 | Day surgery (SDC) | payer MEDICARE, OTHER ==
[2024-09-09] MEDS ORDERED: Lidocaine HCl 4% Cream 5 GM ONE (09:27)
== END 2024-09-09 23:00 | disposition home or self-care (01) ==
LOC: WOUND 03:06
DX: E10.621 Type 1 diabetes mellitus with foot ulcer (principal); L97.523 Non-pressure chronic ulcer of other part of left foot with necrosis of muscle; L97.513 Non-pressure chronic ulcer of other part of right foot with necrosis of muscle; E10.51 Type 1 diabetes mellitus with diabetic peripheral angiopathy without gangrene; E10.40 Type 1 diabetes mellitus with diabetic neuropathy, unspecified; I10 Essential (primary) hypertension; I25.10 Atherosclerotic heart disease of native coronary artery without angina pectoris
CPT/HCPCS: A6213; A9270

== ENCOUNTER 2024-09-16 05:51 | Day surgery (SDC) | payer MEDICARE, OTHER ==
[2024-09-16] MEDS ORDERED: Lidocaine HCl 4% Cream 5 GM ONE (11:16)
== END 2024-09-16 23:00 ==
LOC: WOUND 05:51
DX: E10.621 Type 1 diabetes mellitus with foot ulcer (principal); L97.522 Non-pressure chronic ulcer of other part of left foot with fat layer exposed; L97.512 Non-pressure chronic ulcer of other part of right foot with fat layer exposed; E10.51 Type 1 diabetes mellitus with diabetic peripheral angiopathy without gangrene; E10.40 Type 1 diabetes mellitus with diabetic neuropathy, unspecified; I10 Essential (primary) hypertension; I25.10 Atherosclerotic heart disease of native coronary artery without angina pectoris
CPT/HCPCS: A6213; A9270

== ENCOUNTER → 2024-10-01 | Outpatient (CLI) | payer MEDICARE, OTHER ==
[2024-10-01 17:41] LABS: Albumin, Blood 2.2 g/dL (3.4-5.0); Anion Gap 15 mmol/L (3-11); Blood Urea Nitrogen 127 mg/dL (8-24); Bun/Creatinine Ratio 18.8 (12.0-20.0); CO2, Blood 21 mmol/L (21-32); Calcium, Blood 9.9 mg/dL (8.5-10.1); Chloride, Blood 101 mmol/L (98-108); Creatinine, Blood 6.74 mg/dL (0.60-1.20); Ferritin, Serum 775 ng/mL (26-388); Glomerular Filtration Rate 8 (60-); Glucose, Blood 120 mg/dL (70-99); Iron Serum 28 ug/dL (65-175); Percent Saturation 20.9 % (20.0-50.0); Potassium, Blood 4.3 mmol/L (3.5-5.5); Sodium, Blood 133 mmol/L (136-145); Total Iron Binding Capacity 134 ug/dL (250-450)
== END ==
LOC: LAB 13:27 → LAB SHORT 13:27
PROVIDERS: Internal Medicine Nephrology
DX: N18.6 End stage renal disease (principal); D63.1 Anemia in chronic kidney disease; N25.0 Renal osteodystrophy; R73.09 Other abnormal glucose
CPT/HCPCS: 80069; 82728; 82947; 83540; 83550; 83970

== ENCOUNTER 2024-11-02 05:18 | Day surgery (SDC) | payer MEDICARE, OTHER ==
[2024-11-02 08:13] VITALS: BP 138/54
[2024-11-02] MEDS ORDERED: AMLODIPINE BES2.5 MG PO (09:03)
[2024-11-02 09:18] LABS: Creatinine, Urine Random 59.2 mg/dL (27.00-270.00); Protein, Urine Random 51.9 mg/dL (0.0-11.9); Protein/Creat Ratio, Ur Random 0.9
[2024-11-02 09:26] LABS: Alanine Aminotransfer (ALT/SGP 20 U/L (12-78); Albumin, Blood 2.5 g/dL (3.4-5.0); Albumin/Globulin Ratio 0.7 (0.8-1.8); Anion Gap 16 mmol/L (3-11); Aspartate Aminotrans (AST/SGOT 17 U/L (12-37); Bilirubin, Total 0.3 mg/dL (0.1-1.0); Blood Urea Nitrogen 109 mg/dL (8-24); CHOL/HDL RATIO 2.3; CO2, Blood 20 mmol/L (21-32); Calcium, Blood 8.1 mg/dL (8.5-10.1); Chloride, Blood 103 mmol/L (98-108); Cholesterol 148 mg/dL (50-200); Creatinine, Blood 6.24 mg/dL (0.60-1.20); Globulin, Blood 3.7 g/dL (2.2-4.0); Glucose, Blood 159 mg/dL (70-99); HDL Cholesterol 64 mg/dL (>39); LDL/HDL RATIO 1.0; Low Density Lipoprotein Chol 67 mg/dL (0-110); Potassium, Blood 3.8 mmol/L (3.5-5.5); Sodium, Blood 135 mmol/L (136-145); Thyroid Stimulating Hormone 2.590 uIU/mL (0.360-4.800); Total Protein, Blood 6.2 g/dL (6.4-8.2); Triglycerides 85 mg/dL (30-160); Very Low Density Lipoprot Chol 17 mg/dL (6-32)
[2024-11-03 20:00] LABS: FRUCTOSAMINE 284 umol/L (205-285)
== END 2024-11-02 08:28 | disposition home or self-care (01) ==
LOC: ATC 05:18
PROVIDERS: Internal Medicine Endocrinology, Diabetes & Metabolism
DX: E10.22 Type 1 diabetes mellitus with diabetic chronic kidney disease (principal); N18.6 End stage renal disease; E10.42 Type 1 diabetes mellitus with diabetic polyneuropathy; I12.0 Hypertensive chronic kidney disease with stage 5 chronic kidney disease or end stage renal disease; E78.5 Hyperlipidemia, unspecified; K21.9 Gastro-esophageal reflux disease without esophagitis
CPT/HCPCS: 36591; 80053; 80061; 82570; 82985; 83036; 84156; 84439; 84443; J1642

== ENCOUNTER 2024-11-06 01:41 | Day surgery (SDC) | payer MEDICARE, OTHER ==
[~2024-11-06 01:41] MED LIST changes: +AMLODIPINE BES2.5 MG PO
== END 2024-11-06 23:00 | disposition home or self-care (01) ==
LOC: WOUND 01:41
DX: E10.621 Type 1 diabetes mellitus with foot ulcer (principal); L97.523 Non-pressure chronic ulcer of other part of left foot with necrosis of muscle; E10.51 Type 1 diabetes mellitus with diabetic peripheral angiopathy without gangrene; E10.40 Type 1 diabetes mellitus with diabetic neuropathy, unspecified; I10 Essential (primary) hypertension; I25.10 Atherosclerotic heart disease of native coronary artery without angina pectoris
CPT/HCPCS: A6213

== ENCOUNTER 2024-11-11 03:58 | Day surgery (SDC) | payer MEDICARE, OTHER ==
[2024-11-11] MEDS ORDERED: Lidocaine HCl 4% Cream 5 GM ONE (14:53)
== END 2024-11-11 23:00 | disposition home or self-care (01) ==
LOC: WOUND 03:58
DX: Z45.018 Encounter for adjustment and management of other part of cardiac pacemaker (principal); E10.621 Type 1 diabetes mellitus with foot ulcer; L97.522 Non-pressure chronic ulcer of other part of left foot with fat layer exposed; L97.515 Non-pressure chronic ulcer of other part of right foot with muscle involvement without evidence of necrosis; E10.51 Type 1 diabetes mellitus with diabetic peripheral angiopathy without gangrene; E10.40 Type 1 diabetes mellitus with diabetic neuropathy, unspecified
CPT/HCPCS: 93280; A6213; A9270

== ENCOUNTER 2024-11-18 01:48 | Day surgery (SDC) | payer MEDICARE, OTHER | END 2024-11-18 23:00 | disposition home or self-care (01) | LOC: WOUND 01:48 | DX: E10.621 Type 1 diabetes mellitus with foot ulcer (principal); L97.525 Non-pressure chronic ulcer of other part of left foot with muscle involvement without evidence of necrosis; E10.51 Type 1 diabetes mellitus with diabetic peripheral angiopathy without gangrene; E10.40 Type 1 diabetes mellitus with diabetic neuropathy, unspecified | CPT/HCPCS: A6213; G0463 ==

== ENCOUNTER 2024-11-26 03:56 | Day surgery (SDC) | payer MEDICARE, OTHER ==
[2024-11-26] MEDS ORDERED: Lidocaine HCl 4% Cream 5 GM ONE (13:49)
== END 2024-11-26 23:00 | disposition home or self-care (01) ==
LOC: WOUND 03:56
DX: E10.621 Type 1 diabetes mellitus with foot ulcer (principal); L97.513 Non-pressure chronic ulcer of other part of right foot with necrosis of muscle; L97.522 Non-pressure chronic ulcer of other part of left foot with fat layer exposed; E10.40 Type 1 diabetes mellitus with diabetic neuropathy, unspecified; E10.51 Type 1 diabetes mellitus with diabetic peripheral angiopathy without gangrene; I10 Essential (primary) hypertension; I25.10 Atherosclerotic heart disease of native coronary artery without angina pectoris
CPT/HCPCS: A6213; A9270

== ENCOUNTER 2024-12-01 11:30 | Day surgery (SDC) | payer MEDICARE, OTHER ==
[2024-12-01 11:47] VITALS: BP 113/65
== END 2024-12-01 12:00 | disposition home or self-care (01) ==
LOC: ATC 11:30
DX: Z45.2 Encounter for adjustment and management of vascular access device (principal); I12.0 Hypertensive chronic kidney disease with stage 5 chronic kidney disease or end stage renal disease; N18.6 End stage renal disease; I73.9 Peripheral vascular disease, unspecified; M81.0 Age-related osteoporosis without current pathological fracture; E78.5 Hyperlipidemia, unspecified; Z94.0 Kidney transplant status; Z89.021 Acquired absence of right finger(s)
CPT/HCPCS: 96523; J1642

== ENCOUNTER 2024-12-16 07:22 | Day surgery (SDC) | payer MEDICARE, OTHER | END 2024-12-16 23:00 | disposition home or self-care (01) | LOC: WOUND 07:22 | DX: E10.621 Type 1 diabetes mellitus with foot ulcer (principal); L97.515 Non-pressure chronic ulcer of other part of right foot with muscle involvement without evidence of necrosis; E10.51 Type 1 diabetes mellitus with diabetic peripheral angiopathy without gangrene; E10.40 Type 1 diabetes mellitus with diabetic neuropathy, unspecified | CPT/HCPCS: G0463 ==

== ENCOUNTER 2024-12-23 04:19 | Day surgery (SDC) | payer MEDICARE, OTHER ==
[2024-12-29] MEDS ORDERED: ELIQUIS2.5 M1 PO (08:29)
== END 2024-12-23 23:00 | disposition home or self-care (01) ==
LOC: WOUND 04:19
DX: E10.621 Type 1 diabetes mellitus with foot ulcer (principal); L97.512 Non-pressure chronic ulcer of other part of right foot with fat layer exposed; E10.51 Type 1 diabetes mellitus with diabetic peripheral angiopathy without gangrene; E10.40 Type 1 diabetes mellitus with diabetic neuropathy, unspecified; I10 Essential (primary) hypertension; I25.10 Atherosclerotic heart disease of native coronary artery without angina pectoris
CPT/HCPCS: G0463

== ENCOUNTER 2025-01-06 03:15 | Day surgery (SDC) | payer MEDICARE, OTHER ==
[~2025-01-06 03:15] MED LIST changes: +ELIQUIS2.5 M1 PO
[2025-01-06] MEDS ORDERED: Lidocaine HCl 4% Cream 5 GM ONE (10:59)
== END 2025-01-06 23:00 | disposition home or self-care (01) ==
LOC: WOUND 03:15
DX: E10.621 Type 1 diabetes mellitus with foot ulcer (principal); L97.512 Non-pressure chronic ulcer of other part of right foot with fat layer exposed; E10.51 Type 1 diabetes mellitus with diabetic peripheral angiopathy without gangrene; E10.40 Type 1 diabetes mellitus with diabetic neuropathy, unspecified; I10 Essential (primary) hypertension; I25.10 Atherosclerotic heart disease of native coronary artery without angina pectoris
CPT/HCPCS: A9270; G0463

== ENCOUNTER 2025-01-27 01:26 | Day surgery (SDC) | payer MEDICARE, OTHER | END 2025-01-27 23:00 | disposition home or self-care (01) | LOC: WOUND 01:26 | DX: E10.621 Type 1 diabetes mellitus with foot ulcer (principal); L97.512 Non-pressure chronic ulcer of other part of right foot with fat layer exposed; E10.40 Type 1 diabetes mellitus with diabetic neuropathy, unspecified; E10.51 Type 1 diabetes mellitus with diabetic peripheral angiopathy without gangrene; I10 Essential (primary) hypertension; I25.10 Atherosclerotic heart disease of native coronary artery without angina pectoris ==

== ENCOUNTER 2025-01-29 07:37 | Day surgery (SDC) | payer MEDICARE, OTHER ==
[2025-01-29 08:30] VITALS: BP 143/68
[2025-01-29 10:05] LABS: PSA, %Free 20.5 %; PSA, Free 0.097 ng/mL; Prostate Specific Antigen 0.474 ng/mL (0.000-4.000)
[2025-01-31 12:31] LABS: TACROLIMUS BY HPLC-MS/MS 4.0 ng/mL
== END 2025-01-29 08:50 | disposition home or self-care (01) ==
LOC: ATC 07:37
PROVIDERS: Internal Medicine Nephrology; Urology
DX: Z45.2 Encounter for adjustment and management of vascular access device (principal); I12.0 Hypertensive chronic kidney disease with stage 5 chronic kidney disease or end stage renal disease; N18.6 End stage renal disease; K21.9 Gastro-esophageal reflux disease without esophagitis; I73.9 Peripheral vascular disease, unspecified; Z94.0 Kidney transplant status; Z94.83 Pancreas transplant status; Z89.021 Acquired absence of right finger(s); Z95.0 Presence of cardiac pacemaker
CPT/HCPCS: 36591; 80197; 84153; 84154; J1642

== ENCOUNTER 2025-02-10 00:30 | Day surgery (SDC) | payer MEDICARE, OTHER | END 2025-02-10 23:00 | disposition home or self-care (01) | LOC: WOUND 00:30 | DX: E10.621 Type 1 diabetes mellitus with foot ulcer (principal); L97.512 Non-pressure chronic ulcer of other part of right foot with fat layer exposed; E10.51 Type 1 diabetes mellitus with diabetic peripheral angiopathy without gangrene; E10.40 Type 1 diabetes mellitus with diabetic neuropathy, unspecified; I10 Essential (primary) hypertension; I25.10 Atherosclerotic heart disease of native coronary artery without angina pectoris | CPT/HCPCS: G0463 ==

== ENCOUNTER 2025-02-15 04:19 | Day surgery (SDC) | payer MEDICARE, OTHER ==
[2025-02-15] MEDS ORDERED: Lidocaine HCl 4% Cream 5 GM ONE (10:59)
== END 2025-02-15 23:25 | disposition home or self-care (01) ==
LOC: WOUND 04:19
DX: E10.621 Type 1 diabetes mellitus with foot ulcer (principal); L97.512 Non-pressure chronic ulcer of other part of right foot with fat layer exposed; E10.51 Type 1 diabetes mellitus with diabetic peripheral angiopathy without gangrene; E10.40 Type 1 diabetes mellitus with diabetic neuropathy, unspecified; I10 Essential (primary) hypertension; I25.10 Atherosclerotic heart disease of native coronary artery without angina pectoris
CPT/HCPCS: A9270

== ENCOUNTER 2025-02-26 01:04 | Day surgery (SDC) | payer MEDICARE, OTHER ==
[2025-02-26] MEDS ORDERED: Lidocaine HCl 4% Cream 5 GM ONE (12:57)
== END 2025-02-26 23:00 | disposition home or self-care (01) ==
LOC: WOUND 01:04
DX: E10.621 Type 1 diabetes mellitus with foot ulcer (principal); L97.512 Non-pressure chronic ulcer of other part of right foot with fat layer exposed; E10.51 Type 1 diabetes mellitus with diabetic peripheral angiopathy without gangrene; E10.40 Type 1 diabetes mellitus with diabetic neuropathy, unspecified; I25.10 Atherosclerotic heart disease of native coronary artery without angina pectoris; I10 Essential (primary) hypertension
CPT/HCPCS: A9270

== ENCOUNTER 2025-03-01 09:50 | Emergency (ER) | payer MEDICARE, OTHER ==
[~2025-03-01] VITALS: Ht 185.4 cm; Wt 77.1 kg
[2025-03-01] MEDS ORDERED: HYDROcodone 5-APAP 325 TAB PO ONE (10:45)
[2025-03-01 10:55] LABS: BASOPHILS ABSOLUTE AUTO 0.02 K/mm3 (0.00-0.23); BASOPHILS PERCENT AUTO 0 % (0-2); EOSINOPHILS ABSOLUTE AUTO 0.25 K/mm3 (0.00-0.68); EOSINOPHILS PERCENT AUTO 3 % (0-6); Hematocrit 24.6 % (37.0-53.0); Hemoglobin 8.2 g/dL (13.5-17.5); IMMATURE GRAN ABSOLUTE AUTO 0.04 K/mm3 (0.00-0.10); IMMATURE GRAN PERCENT AUTO 1 % (0-1); LYMPHOCYTES ABSOLUTE AUTO 0.43 K/mm3 (0.84-5.20); LYMPHOCYTES PERCENT AUTO 6 % (21-46); MONOCYTES ABSOLUTE AUTO 0.51 K/mm3 (0.16-1.47); MONOCYTES PERCENT AUTO 7 % (4-13); Mean Corpuscular HGB Conc 33.3 g/dL (31.5-36.5); Mean Corpuscular Volume 100 fL (80-100); NEUTROPHILS ABSOLUTE AUTO 6.14 K/mm3 (1.96-9.15); NEUTROPHILS PERCENT AUTO 83 % (41-73); NRBC ABSOLUTE 0.00 K/mm3 (0.00-0.02); NRBC Auto 0.0 /100 WBC (0.0-0.2); Platelet Count 128 K/mm3 (150-400); RDW Coefficient Variation 14.3 % (11.7-14.2); RDW Standard Deviation 51.2 fL (35.1-46.3)
[2025-03-01 11:19] LABS: Alanine Aminotransfer (ALT/SGP 21.0 U/L (12-78); Albumin, Blood 2.7 g/dL (3.4-5.0); Albumin/Globulin Ratio 0.8 (0.8-1.8); Anion Gap 16.0 mmol/L (3-11); Aspartate Aminotrans (AST/SGOT 26.0 U/L (12-37); Bilirubin, Total 0.4 mg/dL (0.1-1.0); Blood Urea Nitrogen 113.0 mg/dL (8-24); CO2, Blood 23.0 mmol/L (21-32); Calcium, Blood 9.4 mg/dL (8.5-10.1); Chloride, Blood 96.0 mmol/L (98-108); Creatinine, Blood 6.7 mg/dL (0.60-1.20); Globulin, Blood 3.6 g/dL (2.2-4.0); Glucose, Blood 126.0 mg/dL (70-99); Potassium, Blood 3.1 mmol/L (3.5-5.5); Sodium, Blood 132.0 mmol/L (136-145); Total Protein, Blood 6.3 g/dL (6.4-8.2)
[2025-03-01 11:22] LABS: BASOPHILS ABSOLUTE MAN 0.00 K/mm3 (0.00-0.23); BASOPHILS PERCENT MAN 0 % (0-2); EOSINOPHILS ABSOLUTE MAN 0.22 K/mm3 (0.00-0.68); EOSINOPHILS PERCENT MAN 3 % (0-6); LYMPHOCYTES ABSOLUTE MAN 0.59 K/mm3 (0.84-5.20); LYMPHOCYTES PERCENT MAN 8 % (21-46); MONOCYTES ABSOLUTE MAN 0.14 K/mm3 (0.16-1.47); MONOCYTES PERCENT MAN 2 % (4-13); Magnesium, Blood 2.3 mg/dL (1.6-2.4); NEUTROPHILS ABSOLUTE MAN 6.42 K/mm3 (1.96-9.15); Phosphorus, Blood 4.9 mg/dL (2.5-4.9); SEG NEUTROPHILS PERCENT MAN 87 % (41-73)
[2025-03-01 11:47] LABS: Influenza A, PCR NEGATIVE (NEGATIVE); Influenza B, PCR NEGATIVE (NEGATIVE); Resp Syncytial Virus, PCR NEGATIVE (NEGATIVE); SARS-Cov-2 (COVID-19) PCR, MMC NEGATIVE (NEGATIVE)
[2025-03-01 12:12] VITALS: BP 152/72
== END 2025-03-01 12:15 | disposition home or self-care (01) ==
LOC: ER 09:50
PROVIDERS: Emergency Medicine
DX: R53.1 Weakness (principal); R53.83 Other fatigue; R53.81 Other malaise; I12.0 Hypertensive chronic kidney disease with stage 5 chronic kidney disease or end stage renal disease; N18.6 End stage renal disease; D63.1 Anemia in chronic kidney disease; M81.0 Age-related osteoporosis without current pathological fracture; K21.9 Gastro-esophageal reflux disease without esophagitis; Z99.2 Dependence on renal dialysis; Z94.0 Kidney transplant status; Z86.73 Personal history of transient ischemic attack (TIA), and cerebral infarction without residual deficits; Z88.6 Allergy status to analgesic agent; Z88.5 Allergy status to narcotic agent; Z88.4 Allergy status to anesthetic agent; Z88.8 Allergy status to other drugs, medicaments and biological substances; Z79.01 Long term (current) use of anticoagulants; Z79.4 Long term (current) use of insulin; Z79.82 Long term (current) use of aspirin; Z79.899 Other long term (current) drug therapy; Z87.891 Personal history of nicotine dependence
CPT/HCPCS: 80053; 83735; 84100; 85025; 87637; 93005; 93010; 99285-25; A9270

== ENCOUNTER → 2025-03-04 | Outpatient (CLI) | payer MEDICARE, OTHER | LOC: LAB 13:15 → LAB SHORT 13:15 | DX: N18.6 End stage renal disease (principal); D63.1 Anemia in chronic kidney disease | CPT/HCPCS: 85018 ==

== ENCOUNTER 2025-03-06 03:55 | Day surgery (SDC) | payer MEDICARE, OTHER ==
[2025-03-06] MEDS ORDERED: NS 250 ML IV SCH (06:00)
[2025-03-06 13:26] VITALS: BP 129/56
[2025-03-06 13:56] VITALS: BP 108/46
[2025-03-06 14:50] VITALS: BP 123/62
[2025-03-06 15:33] VITALS: BP 159/66
[2025-03-06 15:57] VITALS: BP 146/68
[2025-03-06 17:06] VITALS: BP 184/72
== END 2025-03-06 17:29 | disposition home or self-care (01) ==
LOC: ATC 03:55
DX: I12.0 Hypertensive chronic kidney disease with stage 5 chronic kidney disease or end stage renal disease (principal); N18.6 End stage renal disease; D63.1 Anemia in chronic kidney disease; I73.9 Peripheral vascular disease, unspecified; E78.5 Hyperlipidemia, unspecified
CPT/HCPCS: 36415; 36430; 86850; 86900; 86901; 86923; J1642; J7050; P9016

== ENCOUNTER 2025-03-10 09:25 | Day surgery (SDC) | payer MEDICARE, OTHER ==
[2025-03-10] MEDS ORDERED: Lidocaine HCl 4% Cream 5 GM ONE (12:59)
== END 2025-03-10 23:00 | disposition home or self-care (01) ==
LOC: WOUND 09:25
DX: E11.621 Type 2 diabetes mellitus with foot ulcer (principal); L97.512 Non-pressure chronic ulcer of other part of right foot with fat layer exposed; S91.104D Unspecified open wound of right lesser toe(s) without damage to nail, subsequent encounter; X58.XXXD Exposure to other specified factors, subsequent encounter; I10 Essential (primary) hypertension; I25.10 Atherosclerotic heart disease of native coronary artery without angina pectoris; E11.51 Type 2 diabetes mellitus with diabetic peripheral angiopathy without gangrene; E11.40 Type 2 diabetes mellitus with diabetic neuropathy, unspecified
CPT/HCPCS: A9270; G0463

== ENCOUNTER 2025-03-18 12:28 | Day surgery (SDC) | payer MEDICARE, OTHER ==
[2025-03-18] MEDS ORDERED: SILVADENE20 G8 TOP (12:38)
[2025-03-18] MEDS ORDERED: CATAPRES0.1 MG PO (12:40)
[2025-03-18] MEDS ORDERED: HYDRA25 PO (12:42)
[2025-03-18] MEDS ORDERED: PROGRAF PO (12:45)
[2025-03-18] MEDS ORDERED: Flomax0.4 MG PO (12:47)
[2025-03-18] MEDS ORDERED: BUPR100ER PO (12:47)
[2025-03-18 16:13] VITALS: BP 132/81
[2025-03-18 17:03] LABS: BASOPHILS ABSOLUTE AUTO 0.02 K/mm3 (0.00-0.23); BASOPHILS PERCENT AUTO 0 % (0-2); EOSINOPHILS ABSOLUTE AUTO 0.25 K/mm3 (0.00-0.68); EOSINOPHILS PERCENT AUTO 3 % (0-6); Hematocrit 26.5 % (37.0-53.0); Hemoglobin 8.5 g/dL (13.5-17.5); IMMATURE GRAN ABSOLUTE AUTO 0.04 K/mm3 (0.00-0.10); IMMATURE GRAN PERCENT AUTO 1 % (0-1); LYMPHOCYTES ABSOLUTE AUTO 0.75 K/mm3 (0.84-5.20); LYMPHOCYTES PERCENT AUTO 10 % (21-46); MONOCYTES ABSOLUTE AUTO 0.62 K/mm3 (0.16-1.47); MONOCYTES PERCENT AUTO 8 % (4-13); Mean Corpuscular HGB Conc 32.1 g/dL (31.5-36.5); Mean Corpuscular Volume 100 fL (80-100); NEUTROPHILS ABSOLUTE AUTO 5.82 K/mm3 (1.96-9.15); NEUTROPHILS PERCENT AUTO 78 % (41-73); NRBC ABSOLUTE 0.00 K/mm3 (0.00-0.02); NRBC Auto 0.0 /100 WBC (0.0-0.2); Platelet Count 160 K/mm3 (150-400); RDW Coefficient Variation 15.8 % (11.7-14.2); RDW Standard Deviation 56.9 fL (35.1-46.3)
[2025-03-18 17:49] LABS: Anion Gap 16.0 mmol/L (3-11); Blood Urea Nitrogen 128.0 mg/dL (8-24); CO2, Blood 24.0 mmol/L (21-32); Calcium, Blood 10.3 mg/dL (8.5-10.1); Chloride, Blood 93.0 mmol/L (98-108); Creatinine, Blood 7.96 mg/dL (0.60-1.20); Glucose, Blood 120.0 mg/dL (70-99); Potassium, Blood 3.4 mmol/L (3.5-5.5); Sodium, Blood 130.0 mmol/L (136-145)
== END 2025-03-18 16:20 | disposition home or self-care (01) ==
LOC: ATC 12:28
PROVIDERS: Orthopaedic Surgery
DX: Z45.2 Encounter for adjustment and management of vascular access device (principal); I12.0 Hypertensive chronic kidney disease with stage 5 chronic kidney disease or end stage renal disease; N18.6 End stage renal disease; D64.9 Anemia, unspecified; M81.0 Age-related osteoporosis without current pathological fracture; K21.9 Gastro-esophageal reflux disease without esophagitis; I73.9 Peripheral vascular disease, unspecified; E78.5 Hyperlipidemia, unspecified; K31.84 Gastroparesis; Z95.0 Presence of cardiac pacemaker; Z94.0 Kidney transplant status; Z94.83 Pancreas transplant status; Z89.021 Acquired absence of right finger(s); Z86.73 Personal history of transient ischemic attack (TIA), and cerebral infarction without residual deficits; Z01.810 Encounter for preprocedural cardiovascular examination; S76.191D Other specified injury of right quadriceps muscle, fascia and tendon, subsequent encounter; E11.9 Type 2 diabetes mellitus without complications; I44.0 Atrioventricular block, first degree; I45.2 Bifascicular block; I51.7 Cardiomegaly; R94.31 Abnormal electrocardiogram [ECG] [EKG]
CPT/HCPCS: 36591; 80048; 83036; 85025; 93005; 93010; 99211; J1642

== ENCOUNTER 2025-03-22 11:01 | Inpatient (IN) | payer MEDICARE, OTHER ==
[~2025-03-22] VITALS: Ht 185.4 cm; Wt 76.0 kg
[~2025-03-22 11:01] MED LIST changes: +BUPR100ER PO; +Flomax0.4 MG PO; +HYDRA25 PO; +SILVADENE20 G8 TOP
[2025-03-22 11:32] LABS: BASOPHILS ABSOLUTE AUTO 0.02 K/mm3 (0.00-0.23); BASOPHILS PERCENT AUTO 0 % (0-2); EOSINOPHILS ABSOLUTE AUTO 0.31 K/mm3 (0.00-0.68); EOSINOPHILS PERCENT AUTO 4 % (0-6); Hematocrit 25.0 % (37.0-53.0); Hemoglobin 8.0 g/dL (13.5-17.5); IMMATURE GRAN ABSOLUTE AUTO 0.05 K/mm3 (0.00-0.10); IMMATURE GRAN PERCENT AUTO 1 % (0-1); LYMPHOCYTES ABSOLUTE AUTO 0.69 K/mm3 (0.84-5.20); LYMPHOCYTES PERCENT AUTO 10 % (21-46); MONOCYTES ABSOLUTE AUTO 0.70 K/mm3 (0.16-1.47); MONOCYTES PERCENT AUTO 10 % (4-13); Mean Corpuscular HGB Conc 32.0 g/dL (31.5-36.5); Mean Corpuscular Volume 100 fL (80-100); NEUTROPHILS ABSOLUTE AUTO 5.21 K/mm3 (1.96-9.15); NEUTROPHILS PERCENT AUTO 75 % (41-73); NRBC ABSOLUTE 0.00 K/mm3 (0.00-0.02); NRBC Auto 0.0 /100 WBC (0.0-0.2); Platelet Count 147 K/mm3 (150-400); RDW Coefficient Variation 16.3 % (11.7-14.2); RDW Standard Deviation 58.4 fL (35.1-46.3)
[2025-03-22 11:56] LABS: Alanine Aminotransfer (ALT/SGP 17.0 U/L (12-78); Albumin, Blood 2.4 g/dL (3.4-5.0); Albumin/Globulin Ratio 0.6 (0.8-1.8); Anion Gap 16.0 mmol/L (3-11); Aspartate Aminotrans (AST/SGOT 12.0 U/L (12-37); Bilirubin, Total 0.4 mg/dL (0.1-1.0); Blood Urea Nitrogen 120.0 mg/dL (8-24); CO2, Blood 23.0 mmol/L (21-32); Calcium, Blood 10.2 mg/dL (8.5-10.1); Chloride, Blood 96.0 mmol/L (98-108); Creatinine, Blood 7.89 mg/dL (0.60-1.20); Globulin, Blood 3.9 g/dL (2.2-4.0); Glucose, Blood 139.0 mg/dL (70-99); Potassium, Blood 3.0 mmol/L (3.5-5.5); Sodium, Blood 132.0 mmol/L (136-145); Total Protein, Blood 6.3 g/dL (6.4-8.2)
[2025-03-22 12:22] LABS: IMMATURE RETIC FRACTION 22.9 % (2.3-16.0); RETIC HGB EQUIVALENT 28.3 pg (28.20-36.60); RETICULOCYTE ABSOLUTE 0.1503 M/mm3 (0.0200-0.1100); RETICULOCYTE COUNT PERCENT 5.99 % (0.50-2.50)
[2025-03-22] MEDS ORDERED: NS 500 ML IV SCH (13:05)
[2025-03-22] MEDS ORDERED: FLU VACC TS2025(65UP)/MF59C/PF 45 MCG/0.5 ML SYRINGE IM SCH (14:25)
[2025-03-22] MEDS ORDERED: Ondansetron HCl 2 MG / ML 2ML Vial IV PRN (14:25)
[2025-03-22] MEDS ORDERED: HYDROcodone 10-APAP 325 TAB PO PRN ×2 (15:30→23:36)
[2025-03-22] MEDS ORDERED: Darbepoetin (Pharmacy Consult) SC SCH (16:05)
[2025-03-22 16:07] LABS: Ferritin, Serum 943.0 ng/mL (26-388); Total Iron Binding Capacity 281.0 ug/dL (250-450)
[2025-03-22] MEDS ORDERED: Insulin Human Lispro 100 Units/ML 3ML Syringe SC SCH (16:30)
[2025-03-22 17:09] VITALS: BP 138/67
--- NOTE | 2025-03-22 18:48 | NUR ---
UPON ENTRY TO ROOM, PT SITTING UP IN BED FINISHING A SNACK PROVIDED BY STAFF. PT ALERT / ORIENTED AND VOICING NO PRESENT DISCOMFORT. CYCLER STRUNG, PRIMED AND PROGRAMMED PER DR STEVEN'S RX. WHEN PRIME COMPLETE, PT AESEPTICALLY CONNECTED AND OVERNIGHT CCPD THERAPY STARTED. EXIT SITE CARE DONE. EXIT SITE WITH SMALL AREA OF SUPERFICIAL REDNESS BUT OTHERWISE CLEAR, DRY AND TIGHT. PT OBSERVED THROUGH FILL #1 WITH NO COMPLAINTS RECIEVED. REPORT TO DIRECTOR OF APPLICATION DEVELOPMENT COMPLETE.
[2025-03-22] MEDS ORDERED: PROGRAF1 M1 PO (19:19)
[2025-03-22] MEDS ORDERED: TACR1 (19:20)
[2025-03-22] MEDS ORDERED: DHEA50 M2 PO (19:22)
--- NOTE | 2025-03-22 19:22 | NUR ---
ADMISSION NOTE; PT ARRIVED TO ROOM AT 1645 VIA GURNEY FROM ED. PT ORIENTED TO ROOM AND CALL LIGHT. PT SET UP FOR DINNER AND MEDICATED FOR PAIN PER EMAR. INITIAL ASSESSMENT COMPLETED. DR. HDEZ AND DR. COSTA AT BEDSIDE THIS EVENING. DIALYSIS AT BEDSIDE AT APPROX. 1800 TO START PERITONEAL DIALYSIS. AND OTHER FAMILY MEMBER AT BEDSIDE. IS A GOOD HISTORIAN AND PROVIDES FORMS SUCH POLST, MEDICAL HX, AND MEDICATION LIST. COPIES MADE AND PUT INTO PATIENT'S CHART. BED IN LOWEST POSITION AND CALL LIGHT WITHIN REACH.
[2025-03-22] MEDS ORDERED: FISH OIL 1,0001 EA10 PO (19:23)
[2025-03-22] MEDS ORDERED: Norco 10-325 T1 EACH PO (19:27)
[2025-03-22] MEDS ORDERED: LOSA25 PO (19:38)
[2025-03-22] MEDS ORDERED: Amlodipine Bes2.5 MG PO (19:41)
[2025-03-22] MEDS ORDERED: MIDO5 PO (19:44)
[2025-03-22] MEDS ORDERED: Potassium Chl 10MEQ/Water100ML 100 ML IV ONE (20:00)
[2025-03-22] MEDS ORDERED: HYDROcodone 10-APAP 325 TAB PO SCH (20:00)
[2025-03-22 20:19] VITALS: BP 111/52
[2025-03-22] MEDS ORDERED: Epoetin Alfa-EPBX 4,000 UNIT/ML 1ML Vial SC SCH (21:00)
[2025-03-22 22:56] VITALS: BP 148/73
[2025-03-23 03:42] VITALS: BP 136/89
[2025-03-23 06:01] LABS: BASOPHILS ABSOLUTE AUTO 0.02 K/mm3 (0.00-0.23); BASOPHILS PERCENT AUTO 0 % (0-2); EOSINOPHILS ABSOLUTE AUTO 0.36 K/mm3 (0.00-0.68); EOSINOPHILS PERCENT AUTO 6 % (0-6); Hematocrit 24.6 % (37.0-53.0); Hemoglobin 7.9 g/dL (13.5-17.5); IMMATURE GRAN ABSOLUTE AUTO 0.05 K/mm3 (0.00-0.10); IMMATURE GRAN PERCENT AUTO 1 % (0-1); LYMPHOCYTES ABSOLUTE AUTO 0.58 K/mm3 (0.84-5.20); LYMPHOCYTES PERCENT AUTO 10 % (21-46); MONOCYTES ABSOLUTE AUTO 0.61 K/mm3 (0.16-1.47); MONOCYTES PERCENT AUTO 10 % (4-13); Mean Corpuscular HGB Conc 32.1 g/dL (31.5-36.5); Mean Corpuscular Volume 100 fL (80-100); NEUTROPHILS ABSOLUTE AUTO 4.23 K/mm3 (1.96-9.15); NEUTROPHILS PERCENT AUTO 72 % (41-73); NRBC ABSOLUTE 0.00 K/mm3 (0.00-0.02); NRBC Auto 0.0 /100 WBC (0.0-0.2); Platelet Count 139 K/mm3 (150-400); RDW Coefficient Variation 16.3 % (11.7-14.2); RDW Standard Deviation 59.4 fL (35.1-46.3)
[2025-03-23 06:27] LABS: Magnesium, Blood 2.4 mg/dL (1.6-2.4)
[2025-03-23 06:40] LABS: Albumin, Blood 2.2 g/dL (3.4-5.0); Anion Gap 13 mmol/L (3-11); Blood Urea Nitrogen 111 mg/dL (8-24); CO2, Blood 24 mmol/L (21-32); Calcium, Blood 9.6 mg/dL (8.5-10.1); Chloride, Blood 98 mmol/L (98-108); Creatinine, Blood 7.65 mg/dL (0.60-1.20); Glucose, Blood 156 mg/dL (70-99); Phosphorus, Blood 6.4 mg/dL (2.5-4.9); Potassium, Blood 3.1 mmol/L (3.5-5.5); Sodium, Blood 132 mmol/L (136-145)
[2025-03-23] MEDS ORDERED: Potassium Chl 10MEQ/Water100ML 100 ML IV SCH (07:10)
--- NOTE | 2025-03-23 07:46 | NUR ---
A/Ox4, VSS ON RA. PT REPORTS 8-10/10 PAIN AT R KNEE, MANAGED WITH PRN NORCO. PERITONEAL DIALYSIS RUNNING OVERNIGHT. MEDIPORT ACCESSED. STRICT I/Os MONITORED. SPOUSE REPORTS THAT PT HASN'T BEEN NEEDING BLOOD PRESSURE MEDICATIONS LATELY; SHE WOULD LIKE TO DISCUSS THOSE ORDERS WITH HCP WHEN POSSIBLE. PT VOIDING WITH URINAL. WATER AND ICE CHIPS DIET OF 2300. SAFETY PRECAUTIONS IN PLACE, CALL LIGHT IN REACH.
[2025-03-23 07:59] VITALS: BP 114/59
[2025-03-23] MEDS ORDERED: NS 250 ML IV PRN (08:15)
--- NOTE | 2025-03-23 08:19 | NUR ---
DIALYSIS NOTE: RN IN TO DISCONNECT PATIENT FROM [facility]CL[facility]. PT SITTING UP IN CHAIR AND REPORTS TREATMENT WENT WELL AND DENIES ANY ALARMS. PD TREATMENT COMPLETED PRESCRIBED, [id number], TUF-[id number], AVERAGE DWELL TIME 1:33. PT DISCONNECTED PER POLICY, TRASNFER SET CLOSED, CAPPED AND SECURED. HANDOFF REPORT GIVEN TO PRN.
[2025-03-23] MEDS ORDERED: Polyethylene Glycol 3350 17 gm PO SCH (08:30)
[2025-03-23] MEDS ORDERED: Polyethylene Glycol 3350 17 gm PO ONE ×2 (09:00→18:00)
[2025-03-23] MEDS ORDERED: Insulin Pump Cartridge MISC SC SCH (13:15)
[2025-03-23 14:27] VITALS: BP 130/66
--- NOTE | 2025-03-23 18:15 | NUR ---
PT ALERT AND ORIENTED, 2P MOD ASSIST WITH FWW. C/O RIGHT KNEE PAIN DUE TO LIGAMENT TEAR, ALSO HAS FX TO RIGHT GREAT TOE-IMMOBOLIZER TO RIGHT LEG TO REMAIN ON AT ALL TIMES. WOUND ORDER EVERY OTHER DAY FOR RIGHT FOOT-COMPLETED TODAY AND PICTURES TAKEN. PRN OXYCODONE FIRST DOSE GIVEN THIS AFTERNOON-ASSESS OF CURRENT MEDICATION IS COVERING PAIN BETTER. CALL LIGHT IN REACH, PT CALLS FOR ASSISTANCE APPROPRIATELY. BOWEL PREP IN PROGRESS, CLEAR DIET NOW, WATER AND ICE CHIPS ONLY STARTING 2300 03/23. NPO AT 1100 03/24/25 FOR PROCEDURE.
--- NOTE | 2025-03-23 18:50 | NUR ---
DIALYSIS NOTE: RN ARRIVED TO ROOM TO SET UP PD FOR NIGHTLY TX. PT RESTING IN BED WITH EYES CLOSED, WAKES EASILY, PT A&O PLEASANT AND COOPERATIVE WITH CARE. CCPD TX SET UP PRESCEIBED. EXIT SITE CARE AND DRSG CHANGE PROVIDED PER POLICY. PT CONNECTED TO CYCLER PER ASEPTIC TECHNIQUE AND PD CATH SECURED. PT TOLERATED PROCEDURE WELL AND HANDOFF REPORT GIVEN TO PCRN.
[2025-03-23 19:15] VITALS: BP 102/56
[2025-03-23 20:55] VITALS: BP 119/57
[2025-03-23 23:57] VITALS: BP 133/67
--- NOTE | 2025-03-24 03:55 | NUR ---
NO ACUTE CHANGES DURING SHIFT. PATIENT ABLE TO MAKE NEEDS KNOWN. PATIENT ON PERITONEAL DIALYSIS. PATIENT VOIDING IN URINAL. KNEE BRACE TO R KNEE. PATIENT REPOSITIONED FOR COMFORT. MEDICATED FOR PAIN-SEE EMAR. PATIENT STATES RELIEF FROM OXYCODONE. PATIENT ON ROOM AIR. MD CAME UP TO SEE PATIENT-PATIENT NOW NPO AT NOON TODAY FOR PROCEDURE. BED IN LOW POSITION WITH WHEELS LOCKED. CALL LIGHT WITHIN REACH.
[2025-03-24 04:34] VITALS: BP 142/65
[2025-03-24 05:22] LABS: Hematocrit 24.2 % (37.0-53.0); Hemoglobin 7.7 g/dL (13.5-17.5)
[2025-03-24 05:41] LABS: Albumin, Blood 2.0 g/dL (3.4-5.0); Anion Gap 14 mmol/L (3-11); Blood Urea Nitrogen 111 mg/dL (8-24); CO2, Blood 23 mmol/L (21-32); Calcium, Blood 9.0 mg/dL (8.5-10.1); Chloride, Blood 97 mmol/L (98-108); Creatinine, Blood 7.85 mg/dL (0.60-1.20); Glucose, Blood 173 mg/dL (70-99); Magnesium, Blood 2.1 mg/dL (1.6-2.4); Phosphorus, Blood 6.2 mg/dL (2.5-4.9); Potassium, Blood 3.1 mmol/L (3.5-5.5); Sodium, Blood 131 mmol/L (136-145)
[2025-03-24] MEDS ORDERED: Peg/Electrolytes 4,000 ML BTL PO ONE ×2 (06:00→18:00)
--- NOTE | 2025-03-24 06:43 | NUR ---
PT AWAKE/ ALERT/ STARTEING BOWEL PREP FOR COLONOSCOPY. OVERNIGHT CCPD COMPLETED ORDERED. PT AESEPTICALLY DISCONNECTED AND CAPPED. CYCLER STRIPPED AND CLEANED.
[2025-03-24 07:42] VITALS: BP 134/75
[2025-03-24] MEDS ORDERED: Peg/Electrolytes 4,000 ML BTL PO SCH (08:00)
--- NOTE | 2025-03-24 09:56 | NUR ---
During attends change, patient displayed inappropriate behavior. Patient made sexual suggestive comments. Boundaries were reinforced and redirection provided. Care completed, RN notified, and call light within reach. Future care will have 2 staff present for this shift.
[2025-03-24 12:21] VITALS: BP 125/69
[2025-03-24] MEDS ORDERED: NS 500 ML IV SCH (13:55)
[2025-03-24 14:34] VITALS: BP 119/61
--- NOTE | 2025-03-24 17:21 | NUR ---
03/24/25 1721 Gayathri Velazco ENDO 2 @ 1705- CONFIRMED AND REVIEWED H&P, MEDCICATIONS, ALLERGIES, MEDICAL HISTORY, RESPIRATORY HISTORY, VITAL SIGNS, 3-LEAD EKG, CONSENTS, AND PHYSICIAN ORDERS. PATIENT CONFIRMS NPO STATUS AND AGREES WITH SCHEDULED PROCEDURE. MONITOR INTACT WITH CONTINUOUS PULSE OXIMETRY, CAPNOGRAPHY, 3-LEAD EKG, INTERMITTENT BP. SUPPLEMENTAL O2 TO BE TITRATED THROUGHOUT PROCEDURE TO MAINTAIN O2 SATURATION ABOVE 90%. PATIENT DETERMINED TO BE ASA APPROPRIATE FOR MAC. DR. SOUSA PROVIDING ANESTHESIA.SEE ANESTHESIA RECORD.
[2025-03-24 18:08] VITALS: BP 123/69
--- NOTE | 2025-03-24 18:33 | NUR ---
PT JUST BACK FROM DAY SURG WHERE COLONOSCOPY WAS CANCELLED DUE TO POOR RESULT FROM PREP. PROCEDURE RESCHEDULED FOR 1000 TOMORROW 03/25. PT ALERT / ORIENTED, COMFORTABLE ONCE POSITIONED IN BED. CYCLER STRUNG, PRIMED AND PROGRAMMED PER ORDERS. PT AESEPTICALLY CONNECTED AND OVERNIGHT [facility]CP[facility] THERAPY STARTED. EXIT SITE CARE DONE. NEW STERILE DRESSING APPLIED WITH 2 STRAIN RELIEFS. MED FLOOR STAFF AWARE AND COMFORTABLE WITH OVERNIGHT THERAPY IN PROGRESS UNTIL APPROXIMATELY 0500.
[2025-03-24 23:44] VITALS: BP 128/77
[2025-03-25] VITALS (13 sets, daily range): BP systolic 103–161; BP diastolic 57–81
[2025-03-25 05:01] LABS: Hematocrit 22.1 % (37.0-53.0); Hemoglobin 6.9 g/dL (13.5-17.5)
[2025-03-25 05:24] LABS: Albumin, Blood 1.9 g/dL (3.4-5.0); Anion Gap 17 mmol/L (3-11); Blood Urea Nitrogen 94 mg/dL (8-24); CO2, Blood 23 mmol/L (21-32); Calcium, Blood 8.7 mg/dL (8.5-10.1); Chloride, Blood 96 mmol/L (98-108); Creatinine, Blood 7.32 mg/dL (0.60-1.20); Glucose, Blood 151 mg/dL (70-99); Magnesium, Blood 2.2 mg/dL (1.6-2.4); Phosphorus, Blood 5.8 mg/dL (2.5-4.9); Potassium, Blood 3.0 mmol/L (3.5-5.5); Sodium, Blood 133 mmol/L (136-145)
--- NOTE | 2025-03-25 07:32 | NUR ---
A/Ox4. PT REPORTS R KNEE/LOW BACK PAIN MANAGED WITH PRN OXY. BOWEL PREP CONTINUED OVERNIGHT. PT OFTEN DROWSY, FATIGUED; JUST 1500 ML OF PREP IN OF 0700. PERITONEAL DIALYSIS OVERNIGHT.
--- NOTE | 2025-03-25 08:01 | NUR ---
pt laying in bed, he has a knee brace in place on right knee, a/ox4, pleasant and cooperative with care, follows commands well, denies pain, states just chronic stuff, lungs are clear t/o, resp even and unlabored, no cough noted, hrr, murmur noted, no edema noted, ppp+1, cap refill< 3 sec, vs stable, afebrile, piv to lfa site is clear and patent, mediport accessed, site is clear and patent, btx4, hyper active b.s., incont briefs in place, skin has right foot wound, gulshan posada, one person assist to bsc, gulshan, call light in reach.
--- NOTE | 2025-03-25 17:09 | NUR ---
pt recieving transfusion of one unit of prbc, tolerating fine, v.s. remain stable, did medicate for pain, will be going for scope at 1800. call light in reach.
[2025-03-25] MEDS ORDERED: NS 500 ML IV SCH (17:20)
--- NOTE | 2025-03-25 17:49 | NUR ---
Pt completed the transfusion, tolerated well, day surgery here to take him for scope, moved him to the [facility], left via [facility].
--- NOTE | 2025-03-25 17:57 | NUR ---
INTO [facility]IA [place]. HISTORY AND ALLERGIES REVIEWED. PT REPORTS 9/10 LOW BACK AND RIGHT KNEE PAIN. LUNGS DIMINISHED IN THE BASES-SATS>90% ON RA. NPO STATUS AND BOWEL PREP CONFIRMED.
--- NOTE | 2025-03-25 18:07 | NUR ---
03/25/25 1807 Gayathri Velazco CONFIRMED AND REVIEWED H&P, MEDCICATIONS, ALLERGIES, MEDICAL HISTORY, RESPIRATORY HISTORY, VITAL SIGNS, 3-LEAD EKG, CONSENTS, AND PHYSICIAN ORDERS. PATIENT CONFIRMS NPO STATUS AND AGREES WITH SCHEDULED PROCEDURE. MONITOR INTACT WITH CONTINUOUS PULSE OXIMETRY, CAPNOGRAPHY, 3-LEAD EKG, INTERMITTENT BP. SUPPLEMENTAL O2 TO BE TITRATED THROUGHOUT PROCEDURE TO MAINTAIN O2 SATURATION ABOVE 90%. PATIENT DETERMINED TO BE ASA APPROPRIATE FOR MAC. PROVIDING ANESTHESIA-SEE ANESTHESIA RECORD.
[2025-03-25] MEDS ORDERED: FentaNYL Citrate 50 MCG/ML 2 ML Injection IV PRN (19:25)
[2025-03-25] MEDS ORDERED: Propofol 10mg/ml 20 ml Vial (Procedural) IV ONE (21:53)
--- NOTE | 2025-03-25 21:53 | NUR ---
PERITONEAL DIALYSIS NURSE TO PT ROOM MED 309 AT APPROX 1810PM, PT CARE TEAM INFOMED ME PT HAD JUST LEFT FOR PROCEDURE. SET UP MACHINE AND PRIMED FOR PT CONNECTION. PT TO ROOM APPROX 1900PM, PREPPED PT AND CONNECTED TO [place] APPROX 1915PM. MACHINE ALARMS DURING INITIAL DRAIN TO: CHECK PT LINE. CHECKED ALL LINES FOR CLAMPS AND KINKS, ENSURED ALL FRANGIBLES SNAPPED AND FLUID FLOWING FROM DIALYSATE BAGS THROUGH LINES FREELY, NO FIBRIN OCCLUDING LINES. RESTARTED INITIAL VIANEY CYCLE SEVERAL TIMES. REPOSITONED PATIENT AND CATHETER LINES. STRIPPED MACHINE AND RESET UP USING ALL COMPLETELY NEW SETUP, AND MET THE SAME ALARM. DISCONNECTED PATIENT AND ATTEMPTED TO ASPIRATE PD FLUID. WAS ALBE TO ASPIRATE 20 ML AND INSTILL WITH MINIMAL RESISTANCE. SET UP NEW [employer] CYCLER MACHINE WITH NEW SET UP AND AGAIN GOT THE SAME CHECK PATIENT LINES ALARM. CALLED [facility] [employer] [employer] WHO HELPED ME TROUBLE SHOOT THE ISSUE AND AFTER WE WERE UNABLE TO RESOLVE THE ALARM I WAS INFOMRED TO DISCONNECT PATEINT, SHUT OFF CYLER AND INFORM NEPHROLOGY OF POTENTIAL ACCESS ISSUE. DR STEVEN AND CARE TEAM NOTIFIED.
[2025-03-26 03:42] VITALS: BP 152/64
[2025-03-26 05:25] LABS: BASOPHILS ABSOLUTE AUTO 0.03 K/mm3 (0.00-0.23); BASOPHILS PERCENT AUTO 1 % (0-2); EOSINOPHILS ABSOLUTE AUTO 0.21 K/mm3 (0.00-0.68); EOSINOPHILS PERCENT AUTO 4 % (0-6); Hematocrit 26.4 % (37.0-53.0); Hemoglobin 8.3 g/dL (13.5-17.5); IMMATURE GRAN ABSOLUTE AUTO 0.02 K/mm3 (0.00-0.10); IMMATURE GRAN PERCENT AUTO 0 % (0-1); LYMPHOCYTES ABSOLUTE AUTO 0.69 K/mm3 (0.84-5.20); LYMPHOCYTES PERCENT AUTO 12 % (21-46); MONOCYTES ABSOLUTE AUTO 0.69 K/mm3 (0.16-1.47); MONOCYTES PERCENT AUTO 12 % (4-13); Mean Corpuscular HGB Conc 31.4 g/dL (31.5-36.5); Mean Corpuscular Volume 97 fL (80-100); NEUTROPHILS ABSOLUTE AUTO 4.13 K/mm3 (1.96-9.15); NEUTROPHILS PERCENT AUTO 72 % (41-73); NRBC ABSOLUTE 0.00 K/mm3 (0.00-0.02); NRBC Auto 0.0 /100 WBC (0.0-0.2); Platelet Count 139 K/mm3 (150-400); RDW Coefficient Variation 17.9 % (11.7-14.2); RDW Standard Deviation 64.2 fL (35.1-46.3)
[2025-03-26 05:45] LABS: Albumin, Blood 1.8 g/dL (3.4-5.0); Anion Gap 17 mmol/L (3-11); Blood Urea Nitrogen 86 mg/dL (8-24); CO2, Blood 23 mmol/L (21-32); Calcium, Blood 8.5 mg/dL (8.5-10.1); Chloride, Blood 100 mmol/L (98-108); Creatinine, Blood 7.86 mg/dL (0.60-1.20); Glucose, Blood 96 mg/dL (70-99); Magnesium, Blood 2.2 mg/dL (1.6-2.4); Phosphorus, Blood 6.0 mg/dL (2.5-4.9); Potassium, Blood 3.3 mmol/L (3.5-5.5); Sodium, Blood 137 mmol/L (136-145)
--- NOTE | 2025-03-26 06:31 | NUR ---
SHIFT SUMMARY PT A&OX4 AND ASNWERS QUESTIONS APPROPRIATELY. PT HAD COLONOSCOPY ON 03/25 AND RETURNED TO ROOM. PT HAD PERITONEAL DYALISIS ATTEMPTED. VSS, NO COMPLAINTS OF CP/PRESSURE OR SOB. PT MEDICATED PER EMAR AND PRN. PT SPENT MOST OF SHIFT IN BED WITH EYES CLOSED AND RESPIRATIONS EVEN ADN UNLABORED. NO ACUTE EVENTS AT THIS TIME. PT LEFT IN POSITION OF SAFETY WITH FALL PRECAUTIONS IN PLACE, BED IN LOW POSITION, CALL LIGHT IN REACH.
[2025-03-26] MEDS ORDERED: Potassium Chl 20MEQ/Water100ML 100 ML IV STA (07:11)
[2025-03-26 07:28] VITALS: BP 114/59
--- NOTE | 2025-03-26 09:02 | NUR ---
PERITONEAL DIALYSIS NURSE TO PT RM 309 AT APPROX 0830AM TO ATTEMPT TO INITIATE TREATMENT. PRIMED MACHINE AND PREP PATIENT PER ASEPTIC PROTOCOL. ATER CONNECTING PT DURING INITIAL DRAIN ALARMS OCCURED: CHECK PATIENT LINES. NO KINKS OR CLAMPS, ALL BAGS OPEN. PT DISCONNECTED PER PROTOCOL. PRIMARY CARE TEAM AND NEPHROLOGY NOTIFIED.
[2025-03-26] MEDS ORDERED: Alteplase Recombinant 2 MG / Vial IV PRN (09:15)
[2025-03-26 11:16] VITALS: BP 145/69
--- NOTE | 2025-03-26 14:05 | NUR ---
WOUND CARE DONE TO RIGHT 3RD AND 4TH TOES ALOND WITH PATERAL SIDE OF FOOT. WOUNDS CLEANSED, DRIED AND DRESSED. PATIENT TOLERATED WELL.
--- NOTE | 2025-03-26 14:09 | NUR ---
PD RN TO PT RM APPROX 1300PM TO ASSESS CATHETER AND ADMINISTER CATHFLOW/ACTIVASE, IN ATTEMPT TO REGAIN PATENCY. MEDS INSTILLED APPROX 1320PM. WILL ALLOW TO DWELL FOR APPROX 1 HR AND ATTEMPT ASPIRATION AGAIN.
[2025-03-26 15:34] VITALS: BP 115/55
--- NOTE | 2025-03-26 17:51 | NUR ---
PATIENT RESTED TODAY WITH FAMILY AT BEDSIDE FOR MOST OF DAY. DIALYSIS STAFF ATTEMPTED A COUPLE TIMES TO GET ACCESS TO WORK, UNABLE SO ORDERED A CT SCAN. PLAN IS FOR PATIENT TO GO TO DIALYSIS IN THE AM TO ATTEMPT TO ACCESS THE PATIENTS FISTULA IN THE RIGHT ARM. PATIENT TOLERATED CARE TODAY AND DID REQUEST PAIN MEDICINE EVERY COUPLE HOURS. DOSED FROM JUN. CALL LIGHT WITHIN REACH. WOUND CARE DONE PER ORDER. NO CONCERNS
[2025-03-26 21:43] VITALS: BP 128/66
[2025-03-27] VITALS (17 sets, daily range): BP systolic 100–159; BP diastolic 58–81
[2025-03-27 05:28] LABS: Hematocrit 27.0 % (37.0-53.0); Hemoglobin 8.6 g/dL (13.5-17.5)
--- NOTE | 2025-03-27 05:28 | NUR ---
PT RESTED OVERNIGHT WITH NO ACUTE EVENTS AND STABLE VITALS. [facility] WAS ACCESSED FOR LAB DRAW AND HEP LOCKED AFTER THE DRAW.
[2025-03-27 06:01] LABS: Magnesium, Blood 2.1 mg/dL (1.6-2.4)
[2025-03-27 06:19] LABS: Albumin, Blood 2.0 g/dL (3.4-5.0); Anion Gap 19 mmol/L (3-11); Blood Urea Nitrogen 101 mg/dL (8-24); CO2, Blood 22 mmol/L (21-32); Calcium, Blood 8.5 mg/dL (8.5-10.1); Chloride, Blood 97 mmol/L (98-108); Creatinine, Blood 8.47 mg/dL (0.60-1.20); Glucose, Blood 122 mg/dL (70-99); Phosphorus, Blood 6.1 mg/dL (2.5-4.9); Potassium, Blood 3.6 mmol/L (3.5-5.5); Sodium, Blood 134 mmol/L (136-145)
--- NOTE | 2025-03-27 18:07 | NUR ---
ASSUMED CARE OF PT. A/O X 4 COOPERATIVE WITH CARE. PT MED PER MAR FOR PAIN AND TAKEN TO DIALYSIS.
--- NOTE | 2025-03-27 18:09 | NUR ---
PT RETURNED FROM DIALYSIS RETURNED, DAVID WELL, VSS. QUIETLY LAYING IN BED. PT DID VERY WELL THROUGH OUT THE DAY. SPOKE WITH PT CONCERNING GETTING OOB FOR DINNER PT AT FIRST REFUSED BUT I WAS ABLE TO CONVINCE PT IT WOULD HELP GET HIM OUT OF HOSPITAL SOONER, PT AGREED TO TRY AND DID VERY WELL. PT FEEDING SELF. AT BEDSIDE.
[2025-03-28 04:03] VITALS: BP 174/73
--- NOTE | 2025-03-28 05:16 | NUR ---
PT MEDICATED WITH PRN MEDS PER EMAR. NO ACUTE EVENTS. VITALS STABLE.
[2025-03-28 05:24] LABS: Hematocrit 28.4 % (37.0-53.0); Hemoglobin 9.1 g/dL (13.5-17.5)
[2025-03-28 05:51] LABS: Albumin, Blood 1.8 g/dL (3.4-5.0); Anion Gap 15 mmol/L (3-11); Blood Urea Nitrogen 85 mg/dL (8-24); CO2, Blood 26 mmol/L (21-32); Calcium, Blood 8.7 mg/dL (8.5-10.1); Chloride, Blood 96 mmol/L (98-108); Creatinine, Blood 6.60 mg/dL (0.60-1.20); Glucose, Blood 149 mg/dL (70-99); Magnesium, Blood 2.1 mg/dL (1.6-2.4); Phosphorus, Blood 5.4 mg/dL (2.5-4.9); Potassium, Blood 3.7 mmol/L (3.5-5.5); Sodium, Blood 133 mmol/L (136-145)
[2025-03-28 08:18] VITALS: BP 133/69
[2025-03-28 12:35] VITALS: BP 107/64
[2025-03-28 14:31] VITALS: BP 96/57
[2025-03-28 17:33] VITALS: BP 128/61
--- NOTE | 2025-03-28 18:31 | NUR ---
SHIFT SUMMARY PT A&OX4, FORGETFUL, FLAT AFFECT, VSS, RA, ST 103 BBB ON TELE, 2 PERSON STAND PIVOT TO CHAIR FOR BREAKFAST. PAIN TREATED WITH PRN OXYCODONE. DURING WOUND CARE ON FOOT, PURULENT DRAINAGE NOTED, MD NOTIFIED AND NEW ORDER FOR DOXYCYCLINE OBTAINED. PER PT , PT WILL NOT GO TO SNF WHEN DISCHARGED AND SHE WISHES FOR HIM TO DISCHARGE HOME, MD AWARE. PT ABLE TO MAKE NEEDS KNOWN, CALL LIGHT IN REACH.
[2025-03-28] MEDS ORDERED: Heparin Sodium,Porcine 5,000 UNIT/0.5 ML SDV SC SCH (21:00)
[2025-03-28 21:34] VITALS: BP 144/70
[2025-03-29] VITALS (16 sets, daily range): BP systolic 89–174; BP diastolic 51–77
--- NOTE | 2025-03-29 04:06 | NUR ---
SHIFT SUMMARY 74 YR M ADMITTED ON 03/23/25. FULL CODE. NO ACUTE CHANGES THIS SHIFT. PT MEDICATED PER EMAR FOR PAIN IN R KNEE AND LOWER BACK. PT STATES HIS BACK PAIN IS CHRONIC. NO OTHER C/O FROM PT. HE APPEARS TO HAVE RESTED COMFORTABLY THROUGHOUT THE NIGHT. LOW URINE OUTPUT. PLAN IS FOR HEMODIALYSIS TODAY AT [facility]. NO ADVERSE EVENTS REPORTED BY MACHINE CEMENTER THIS SHIFT. NO NEW CHANGES TO REPORT. PT IS A&O X 4 AND PLEASANT, COOPERATIVE WITH CARE. BED IN LOW POSITION AND CALL LIGHT IN REACH.
[2025-03-29 06:13] LABS: Hematocrit 27.6 % (37.0-53.0); Hemoglobin 8.7 g/dL (13.5-17.5)
[2025-03-29 06:56] LABS: Albumin, Blood 1.7 g/dL (3.4-5.0); Anion Gap 14 mmol/L (3-11); Blood Urea Nitrogen 92 mg/dL (8-24); CO2, Blood 25 mmol/L (21-32); Calcium, Blood 8.5 mg/dL (8.5-10.1); Chloride, Blood 97 mmol/L (98-108); Creatinine, Blood 7.09 mg/dL (0.60-1.20); Glucose, Blood 99 mg/dL (70-99); Magnesium, Blood 2.2 mg/dL (1.6-2.4); Phosphorus, Blood 6.0 mg/dL (2.5-4.9); Potassium, Blood 3.9 mmol/L (3.5-5.5); Sodium, Blood 132 mmol/L (136-145)
[2025-03-29] MEDS ORDERED: Protein Supplement 30 ML UD PO SCH (09:45)
[2025-03-29] MEDS ORDERED: VISBIOME 112.51 EACH PO (16:22)
[2025-03-29] MEDS ORDERED: DOXY100 PO (16:22)
== END 2025-03-29 17:15 | disposition home health service (06) | DRG 377 ==
LOC: ER 11:01 → SURS 11:02 → MEDS 11:02 → ENPENDDIS 03-29 14:56 → MEDS 03-29 17:15
PROVIDERS: Emergency Medicine; Internal Medicine Gastroenterology; Internal Medicine Nephrology; ADMIT Student in an Organized Health Care Education/Training Program
PROC: 3E02340 Introduction of Influenza Vaccine into Muscle, Percutaneous Approach (ICD-10-PCS; 2025-03-22)
PROC: 5A1D70Z Performance of Urinary Filtration, Intermittent, Less than 6 Hours Per Day (ICD-10-PCS; 2025-03-23)
PROC: 0DJ08ZZ Inspection of Upper Intestinal Tract, Via Natural or Artificial Opening Endoscopic (ICD-10-PCS; principal; 2025-03-24 10:45)
PROC: 30233N1 Transfusion of Nonautologous Red Blood Cells into Peripheral Vein, Percutaneous Approach (ICD-10-PCS; 2025-03-25)
PROC: 0DJD8ZZ Inspection of Lower Intestinal Tract, Via Natural or Artificial Opening Endoscopic (ICD-10-PCS; 2025-03-25)
DX: K92.1 Melena (principal); N18.6 End stage renal disease; D61.818 Other pancytopenia; E87.1 Hypo-osmolality and hyponatremia; Z94.0 Kidney transplant status; N25.81 Secondary hyperparathyroidism of renal origin; Z94.83 Pancreas transplant status; I13.2 Hypertensive heart and chronic kidney disease with heart failure and with stage 5 chronic kidney disease, or end stage renal disease; I50.32 Chronic diastolic (congestive) heart failure; Q43.8 Other specified congenital malformations of intestine; D63.1 Anemia in chronic kidney disease; M81.0 Age-related osteoporosis without current pathological fracture; Z99.2 Dependence on renal dialysis; I95.1 Orthostatic hypotension; K21.9 Gastro-esophageal reflux disease without esophagitis; I73.9 Peripheral vascular disease, unspecified; K64.8 Other hemorrhoids; M54.9 Dorsalgia, unspecified; G89.29 Other chronic pain; E86.0 Dehydration; E87.6 Hypokalemia; E83.52 Hypercalcemia; E87.8 Other disorders of electrolyte and fluid balance, not elsewhere classified; D69.6 Thrombocytopenia, unspecified; I25.10 Atherosclerotic heart disease of native coronary artery without angina pectoris; E03.9 Hypothyroidism, unspecified; E11.22 Type 2 diabetes mellitus with diabetic chronic kidney disease; E11.51 Type 2 diabetes mellitus with diabetic peripheral angiopathy without gangrene; E11.43 Type 2 diabetes mellitus with diabetic autonomic (poly)neuropathy; D50.9 Iron deficiency anemia, unspecified; K31.84 Gastroparesis; I27.20 Pulmonary hypertension, unspecified; E11.319 Type 2 diabetes mellitus with unspecified diabetic retinopathy without macular edema; I08.1 Rheumatic disorders of both mitral and tricuspid valves; E78.5 Hyperlipidemia, unspecified; G47.33 Obstructive sleep apnea (adult) (pediatric); N40.0 Benign prostatic hyperplasia without lower urinary tract symptoms; F32.A Depression, unspecified; F12.90 Cannabis use, unspecified, uncomplicated; E83.39 Other disorders of phosphorus metabolism; M25.461 Effusion, right knee; S76.101A Unspecified injury of right quadriceps muscle, fascia and tendon, initial encounter; Z23 Encounter for immunization; Z89.021 Acquired absence of right finger(s); Z90.89 Acquired absence of other organs; Z86.73 Personal history of transient ischemic attack (TIA), and cerebral infarction without residual deficits; Z98.890 Other specified postprocedural states; Z87.19 Personal history of other diseases of the digestive system; Z98.52 Vasectomy status; Z95.5 Presence of coronary angioplasty implant and graft; Z88.8 Allergy status to other drugs, medicaments and biological substances; Z88.5 Allergy status to narcotic agent; Z98.2 Presence of cerebrospinal fluid drainage device; Z88.2 Allergy status to sulfonamides; Z79.899 Other long term (current) drug therapy; Z79.85 Long-term (current) use of injectable non-insulin antidiabetic drugs; Z79.891 Long term (current) use of opiate analgesic; Z79.52 Long term (current) use of systemic steroids; Z79.01 Long term (current) use of anticoagulants; Z79.82 Long term (current) use of aspirin; Z79.4 Long term (current) use of insulin; Z87.891 Personal history of nicotine dependence; Z94.89 Other transplanted organ and tissue status; Z95.0 Presence of cardiac pacemaker
CPT/HCPCS: 36415; 36593; 73560-RT; 74176; 80053; 80069; 82607; 82728; 82947; 83540; 83550; 83735; 84132; 85014; 85018; 85025; 85045; 86850; 86900; 86901; 86923; 93005; 93010; 96365; 96366; 97110; 97161; 97165; 97530; 99285-25; A9270; G0257; G0378; J1642; J1644; J2704; J2997; J3010; J3480; J7030; J7040; J7050; J7507; J7512; P9016; Q5106

== ENCOUNTER 2025-04-05 02:38 | Day surgery (SDC) | payer MEDICARE, OTHER ==
[~2025-04-05 02:38] MED LIST changes: +Amlodipine Bes2.5 MG PO; +DHEA50 M2 PO; +DOXY100 PO; +MIDO5 PO; +PROGRAF1 M1 PO; +VISBIOME 112.51 EACH PO
== END 2025-04-05 23:00 | disposition home or self-care (01) ==
LOC: WOUND 02:38
DX: E10.621 Type 1 diabetes mellitus with foot ulcer (principal); L97.512 Non-pressure chronic ulcer of other part of right foot with fat layer exposed; S91.104D Unspecified open wound of right lesser toe(s) without damage to nail, subsequent encounter; X58.XXXD Exposure to other specified factors, subsequent encounter; E10.51 Type 1 diabetes mellitus with diabetic peripheral angiopathy without gangrene; E10.40 Type 1 diabetes mellitus with diabetic neuropathy, unspecified; I25.10 Atherosclerotic heart disease of native coronary artery without angina pectoris; I10 Essential (primary) hypertension
CPT/HCPCS: A6214; G0463

== ENCOUNTER → 2025-04-07 | Outpatient (CLI) | payer MEDICARE, OTHER | LOC: LAB SHORT 15:54 → LAB 15:54 | DX: N18.6 End stage renal disease (principal) | CPT/HCPCS: 85018 ==

== ENCOUNTER 2025-04-12 00:16 | Day surgery (SDC) | payer MEDICARE, OTHER | END 2025-04-12 23:00 | disposition home or self-care (01) | LOC: WOUND 00:16 | DX: E10.621 Type 1 diabetes mellitus with foot ulcer (principal); L97.512 Non-pressure chronic ulcer of other part of right foot with fat layer exposed; L89.620 Pressure ulcer of left heel, unstageable; S91.104D Unspecified open wound of right lesser toe(s) without damage to nail, subsequent encounter; X58.XXXD Exposure to other specified factors, subsequent encounter; E10.51 Type 1 diabetes mellitus with diabetic peripheral angiopathy without gangrene; E10.40 Type 1 diabetes mellitus with diabetic neuropathy, unspecified; I10 Essential (primary) hypertension; I25.10 Atherosclerotic heart disease of native coronary artery without angina pectoris | CPT/HCPCS: A6214; G0463 ==

== ENCOUNTER 2025-04-27 08:36 | Day surgery (SDC) | payer MEDICARE, OTHER ==
[2025-04-27 14:26] VITALS: BP 135/64
[2025-04-27 15:03] LABS: Hematocrit 31.3 % (37.0-53.0); Hemoglobin 10.1 g/dL (13.5-17.5); Mean Corpuscular HGB Conc 32.3 g/dL (31.5-36.5); Mean Corpuscular Volume 101 fL (80-100); NRBC ABSOLUTE 0.00 K/mm3 (0.00-0.02); NRBC Auto 0.0 /100 WBC (0.0-0.2); Platelet Count 109 K/mm3 (150-400); RDW Coefficient Variation 17.9 % (11.7-14.2); RDW Standard Deviation 66.6 fL (35.1-46.3)
[2025-04-27 15:33] LABS: Anion Gap 11.0 mmol/L (3-11); Blood Urea Nitrogen 62.0 mg/dL (8-24); CO2, Blood 31.0 mmol/L (21-32); Calcium, Blood 8.3 mg/dL (8.5-10.1); Chloride, Blood 91.0 mmol/L (98-108); Creatinine, Blood 4.2 mg/dL (0.60-1.20); Glucose, Blood 118.0 mg/dL (70-99); Potassium, Blood 3.4 mmol/L (3.5-5.5); Sodium, Blood 130.0 mmol/L (136-145)
[2025-04-27 15:54] LABS: BASOPHILS ABSOLUTE MAN 0.00 K/mm3 (0.00-0.23); BASOPHILS PERCENT MAN 0 % (0-2); EOSINOPHILS ABSOLUTE MAN 0.00 K/mm3 (0.00-0.68); EOSINOPHILS PERCENT MAN 0 % (0-6); LYMPHOCYTES ABSOLUTE MAN 0.99 K/mm3 (0.84-5.20); LYMPHOCYTES PERCENT MAN 20 % (21-46); MONOCYTES ABSOLUTE MAN 0.59 K/mm3 (0.16-1.47); MONOCYTES PERCENT MAN 12 % (4-13); MYELOCYTE ABSOLUTE MAN 0.04 K/mm3 (0.00-0.00); MYELOCYTE PERCENT MAN 1 % (0-0); NEUTROPHILS ABSOLUTE MAN 3.32 K/mm3 (1.96-9.15); SEG NEUTROPHILS PERCENT MAN 67 % (41-73)
[2025-04-30] MEDS ORDERED: MEGE40T PO (08:36)
[2025-04-30] MEDS ORDERED: ELIQUIS2.5 MG PO (08:37)
== END 2025-04-27 23:00 | disposition home or self-care (01) ==
LOC: ATC 08:36
PROVIDERS: Physician Assistant
DX: I12.0 Hypertensive chronic kidney disease with stage 5 chronic kidney disease or end stage renal disease (principal); N18.6 End stage renal disease; E78.5 Hyperlipidemia, unspecified; I73.9 Peripheral vascular disease, unspecified; Z99.2 Dependence on renal dialysis; Z94.0 Kidney transplant status
CPT/HCPCS: 36591; 80048; 85007; 85027; 85610; J1642

== ENCOUNTER 2025-04-28 07:24 | Day surgery (SDC) | payer MEDICARE, OTHER ==
[2025-04-28 14:06] VITALS: BP 155/60
[2025-04-28 15:34] LABS: Prothrombin Time Results 11.7 Sec (9.7-11.5)
[2025-04-30] MEDS ORDERED: MEGE40T PO (08:36)
[2025-04-30] MEDS ORDERED: ELIQUIS2.5 MG PO (08:37)
== END 2025-04-28 14:18 | disposition home or self-care (01) ==
LOC: ATC 07:24
PROVIDERS: Physician Assistant
DX: I12.0 Hypertensive chronic kidney disease with stage 5 chronic kidney disease or end stage renal disease (principal); N18.6 End stage renal disease; D63.1 Anemia in chronic kidney disease; E87.5 Hyperkalemia; G62.9 Polyneuropathy, unspecified; G89.29 Other chronic pain; G93.40 Encephalopathy, unspecified; H70.90 Unspecified mastoiditis, unspecified ear; K21.9 Gastro-esophageal reflux disease without esophagitis; K31.84 Gastroparesis; I73.9 Peripheral vascular disease, unspecified; I95.1 Orthostatic hypotension; M81.0 Age-related osteoporosis without current pathological fracture; M54.9 Dorsalgia, unspecified; R73.9 Hyperglycemia, unspecified; Z79.4 Long term (current) use of insulin; Z79.52 Long term (current) use of systemic steroids; Z79.82 Long term (current) use of aspirin; Z79.890 Hormone replacement therapy; Z79.899 Other long term (current) drug therapy; Z86.73 Personal history of transient ischemic attack (TIA), and cerebral infarction without residual deficits; Z94.0 Kidney transplant status; Z94.83 Pancreas transplant status; Z96.41 Presence of insulin pump (external) (internal); Z99.2 Dependence on renal dialysis
CPT/HCPCS: 36591; 85610; A6214; G0463; J1642

== ENCOUNTER 2025-04-28 08:20 | Day surgery (SDC) | payer MEDICARE, OTHER ==
[2025-04-30] MEDS ORDERED: MEGE40T PO (08:36)
[2025-04-30] MEDS ORDERED: ELIQUIS2.5 MG PO (08:37)
== END 2025-04-28 23:00 | disposition home or self-care (01) ==
LOC: WOUND 08:20
DX: E10.621 Type 1 diabetes mellitus with foot ulcer (principal); L97.512 Non-pressure chronic ulcer of other part of right foot with fat layer exposed; L89.610 Pressure ulcer of right heel, unstageable; E10.51 Type 1 diabetes mellitus with diabetic peripheral angiopathy without gangrene; E10.40 Type 1 diabetes mellitus with diabetic neuropathy, unspecified; I25.10 Atherosclerotic heart disease of native coronary artery without angina pectoris; I12.0 Hypertensive chronic kidney disease with stage 5 chronic kidney disease or end stage renal disease; N18.6 End stage renal disease; E10.22 Type 1 diabetes mellitus with diabetic chronic kidney disease; D63.1 Anemia in chronic kidney disease; Z79.4 Long term (current) use of insulin; Z79.52 Long term (current) use of systemic steroids; Z79.82 Long term (current) use of aspirin; Z79.890 Hormone replacement therapy; Z79.899 Other long term (current) drug therapy; Z96.41 Presence of insulin pump (external) (internal)
CPT/HCPCS: 36591; 85610; A6214; G0463; J1642